=== PATIENT | male | born 1950 | race Caucasian/White ===

== ENCOUNTER 2024-05-27 18:05 | Inpatient (IN) | payer MEDICARE, OTHER ==
[~2024-05-27] VITALS: Ht 185.4 cm; Wt 83.2 kg
[~2024-05-27 18:05] MED LIST: CIME-52 PO; DOCU-94 PO; PAXIL PO
[2024-05-27 18:32] VITALS: PULSE 81; RESP 18; O2SAT 95
--- NOTE | 2024-05-27 18:55 | ED.PDOC ---
Musculoskeletal HPI Comments 74-year-old male who came to ER due to foot pain. Patient resides at the assisted care facility, he has history of 1. Osteomyelitis of both feet, status post surgery, 2. Urinary tract infection with Proteus, 3. Diabetes mellitus, 4. Dementia, 5. Multiple sclerosis, 6. Chronic kidney disease stage 3. He was noted by caregivers that his left foot is swollen and erythematous. Noted mild fever. States patient's feet was normal a week ago. Chief Complaint: Extremity Swelling Time Seen by MD: 18:55 Primary Care Provider: ANA MARIA Fisher Notes: Track Inspecting Supervisor Notes Allergies: Coded Allergies: Penicillin G (Verified Allergy, Unknown, 09/01/15) Home Meds Reported Medications Docusate Sodium (Colace) 100 Mg Cap, PO TID 12/20/12 Cimetidine (Cimetidine) 400 Mg Tab, PO DAILY 12/20/12 [Paxil] No Conflict Check, 40 MG PO DAILY 12/20/12 Information Source: Relative Mode of Arrival: EMS Location: Left Extremity Location: Foot Timing: Days Prehospital treatment: None Severity: Moderate Able to Move Extremity: Yes Bear Weight: Limited Pain: Moderate Hand Dominance: Right Mechanism: Spontaneous Circumstances: Spontaneous Onset of Symptoms: Spontaneous Symptoms: Swelling Associated signs and symptoms: Foot pain (left) Past Medical History PAST MEDICAL HISTORY: Dementia, DM, UTI'S Past Medical History (Other): Osteomyelitis bilateral feet, multiple sclerosis Surgical History: Denies all surgeries Family History Family History: Reviewed,noncontributory to illness Social History Smoker: Non-Smoker Alcohol: Denies ETOH Use Drugs: Denies Drug Use Lives In: Assisted Care Unable to Obtain due to: Dementia Physical Exam General Appearance: No Apparent Distress, Normal HEENT: Normal ENT Inspection, Pharynx Normal, TMs Normal Neck: Full Range of Motion, Non-Tender, Normal, Normal Inspection Respiratory: Chest Non-Tender, Lungs Clear, No Accessory Muscle Use, No Respiratory Distress, Normal Breath Sounds Cardiovascular: No Edema, No JVD, No Murmur, No Gallop, Normal Peripheral Pulses, Regular Rate/Rhythm Breast Exam: Deferred Gastrointestinal: No Organomegaly, Non Tender, No Pulsatile Mass, Normal Bowel Sounds, Soft Genitalia: Deferred Pelvic: Deferred Rectal: Deferred Extremities: No calf tenderness, Normal capillary refill, Normal range of motion, Non-tender, No pedal edema, Swelling (Erythema left foot) Musculoskeletal : Apperance: Normal Neurologic: Alert, care transition mgr II-XII nml as Tested, No Motor Deficits, Normal Affect, Normal Mood, No Sensory Deficits Cerebellar Function: Normal Reflexes: Normal Skin: Dry, Normal Color, Warm Lymphatic: No Adenopathy Was a procedure done? Was a procedure done?: No Differential Diagnosis EXT Differential Diagnosis: Cellulitis, CHF, Deep Vein Thrombosis, Septic, Other (Osteomyelitis) Other Differential Diagnosis Diabetic foot X-Ray, Labs, Meds, VS Vital Signs Date Time Temp Pulse Resp B/P (MAP) Pulse Ox O2 Delivery O2 Flow Rate FiO2 05/27/24 19:30 82 18 93 Room Air* 0 21 05/27/24 18:32 81 18 95 Room Air* 0 21 05/27/24 18:31 98.1 85 18 145/75 (98) 95 98.1 05/27/24 18:08 99.0 84 14 148/79 (102) 98 Lab Test 05/27/24 19:09 05/27/24 19:04 Range/Units Lactic Acid Level 1.9 0.4-2.0 mmol/L White Blood Count 7.7 4.4-10.8 10^3/uL Red Blood Count 4.61 4.5-5.90 10^6/uL Hemoglobin 13.9 13.5-17.5 g/dL Hematocrit 41.5 41.0-53.0 % Mean Corpuscular Volume 90.1 80.0-100.0 fL Mean Corpuscular Hemoglobin 30.1 28.0-32.0 pg Mean Corpuscular Hemoglobin Concent 33.4 32.0-36.0 g/dL Red Cell Distribution Width 14.9 H 11.8-14.3 % Platelet Count 228 140-450 10^3/uL Mean Platelet Volume 7.8 6.9-10.8 fL Neutrophils (%) (Auto) 66.5 37.0-80.0 % Lymphocytes (%) (Auto) 18.9 10.0-50.0 % Monocytes (%) (Auto) 8.1 0.0-12.0 % Eosinophils (%) (Auto) 5.8 0.0-7.0 % Basophils (%) (Auto) 0.7 0.0-2.0 % Neutrophils # (Auto) 5.1 1.6-8.6 10 ^3/uL Lymphocytes # (Auto) 1.5 0.4-5.4 10 ^3/uL Monocytes # (Auto) 0.6 0-1.3 10 ^3/uL Eosinophils # (Auto) 0.4 0-0.8 10 ^3/uL Basophils # (Auto) 0.1 0-0.2 10 ^3/uL Nucleated Red Blood Cells 0.0 % Sodium Level 139 136-145 mmol/L Potassium Level 3.9 3.5-5.1 mmol/L Chloride Level 109 H 98-107 mmol/L Carbon Dioxide Level 28 20-31 mmol/L Anion Gap 2 L 5-15 Blood Urea Nitrogen 18 9-23 mg/dL Creatinine 1.36 H 0.700-1.30 mg/dL Glomerular Filtration Rate Calc 55 >90 mL/min BUN/Creatinine Ratio 13.2 10.0-20.0 Serum Glucose 104 74-106 mg/dL Calcium Level 9.4 8.7-10.4 mg/dL Current Medications Medications (Trade) Dose Ordered Sig/Sheng Route Start Time Stop Time Status Last Admin Vancomycin HCl 200 ml @ 200 mls/hr ONCE ONCE IV 05/27/24 19:00 05/27/24 19:59 DC 05/27/24 18:56 TECHNIQUE: XY L FOOT 3 VIEW XRAY FINDINGS/IMPRESSION: There is no evidence of acute fracture or dislocation. Amputation of the 1st digit with residual proximal metatarsal. The visualized joint space is well maintained. The alignment is anatomical. There is no radiopaque foreign body. Time of 1ST Reevaluation: 18:51 Reevaluation 1ST: Unchanged Patient Education/Counseling: Diagnosis, Treatment Family Education/Counseling: Diagnosis, Treatment Departure 1 Departure Time of Disposition: 20:11 (Patient with cellulitis of his foot. Patient's CBC and BMP are benign. X-rays benign. We will cover patient with IV antibiotics and admit for further workup) Impression: Primary Impression: Cellulitis of foot Disposition: ADMITTED INPATIENT Admit to: Med Surg Condition: Serious Critical Care Note Critical Care Time?: No Stability Stability form required: No Heart Score Heart Score: Heart Score Response (Comments) Value History N/A 0 EKG N/A 0 Age N/A 0 Risk Factors N/A 0 Troponin N/A 0 Total 0 I personally scribed for ROBE RAMOS MD ([facility]) on 05/27/24 at 18:55. Electronically submitted by Sean Marroquin ([facility]). I personally scribed for ROBE RAMOS MD ([facility]) on 05/27/24 at 20:06. [facility] by [facility] ([facility] ROBE RAMOS MD May 27, 2024 18:55
[2024-05-27] MEDS: VANCOMYCIN 1GM/200ML PREMIX 200 ML IV ONE (18:56)
[2024-05-27 19:24] LABS: Basophils # (auto) 0.1 10 ^3/uL (0-0.2); Basophils % (auto) 0.7 % (0.0-2.0); Eosinophils # (auto) 0.4 10 ^3/uL (0-0.8); Eosinophils % (auto) 5.8 % (0.0-7.0); Hematocrit 41.5 % (41.0-53.0); Hemoglobin 13.9 g/dL (13.5-17.5); Lymphocytes # (auto) 1.5 10 ^3/uL (0.4-5.4); Lymphocytes % (auto) 18.9 % (10.0-50.0); Mean Corpuscular Hemoglobin 30.1 pg (28.0-32.0); Mean Corpuscular Hgb Conc. 33.4 g/dL (32.0-36.0); Mean Corpuscular Volume 90.1 fL (80.0-100.0); Monocytes # (auto) 0.6 10 ^3/uL (0-1.3); Monocytes % (auto) 8.1 % (0.0-12.0); Neutrophils # (auto) 5.1 10 ^3/uL (1.6-8.6); Neutrophils % (auto) 66.5 % (37.0-80.0); Platelet Count (auto) 228 10^3/uL (140-450); Red Blood Cells 4.61 10^6/uL (4.5-5.90); Red Cell Distribution Width 14.9 % (11.8-14.3); White Blood Cell 7.7 10^3/uL (4.4-10.8)
[2024-05-27 19:30] VITALS: PULSE 82; RESP 18; O2SAT 93
--- NOTE | 2024-05-27 19:31 | DVH ---
CLINICAL INDICATION: left foot pain and redness TECHNIQUE: XY L FOOT 3 VIEW XRAY Comparison: None FINDINGS/IMPRESSION: There is no evidence of acute fracture or dislocation. Amputation of the 1st digit with residual prox imal metatarsal. The visualized joint space is well maintained. The alignment is anatomical. There is no radiopaque foreign body.
[2024-05-27 19:41] LABS: Chloride 109 mmol/L (98-107); Potassium 3.9 mmol/L (3.5-5.1); Sodium 139 mmol/L (136-145)
[2024-05-27 19:42] LABS: Anion Gap 2 (5-15); Carbon Dioxide 28 mmol/L (20-31)
[2024-05-27 19:43] LABS: Calcium 9.4 mg/dL (8.7-10.4)
[2024-05-27 19:48] LABS: BUN/Creatinine Ratio 13.2 (10.0-20.0); Blood Urea Nitrogen 18 mg/dL (9-23); Glucose 104 mg/dL (74-106)
[2024-05-27] MEDS ORDERED: HYDROcodone-ACET 5/325MG TAB PO PRN (22:15)
[2024-05-27] MEDS ORDERED: VANCOMYCIN PER PHARMACY 0 MG IV SCH (22:15)
[2024-05-27] MEDS ORDERED: ONDANSETRON HCL 4 MG/2 ML VIAL IV PRN (22:15)
[2024-05-27] MEDS ORDERED: ACETAMINOPHEN 325 MG TAB PO PRN (22:15)
[2024-05-27] MEDS ORDERED: MORPHINE SULFATE INJ 2 MG/ml SYRG IV PRN (22:30)
[2024-05-27] MEDS ORDERED: NITROGLYCERIN 0.4 MG SL TAB SL PRN (22:30)
--- NOTE | 2024-05-27 22:45 | DVHHP2 ---
History of Present Illness Reason for Visit: Cellulitis of foot History of Present Illness The patient is a 74-year-old male with multiple past medical history including DM, UTIs, and dementia who presented to [facility] ED for evaluation of foot pain. Patient is currently residing at assisted care facility, noted by caregiver his left foot is swollen and erythematous, mild fever, painful to touch, getting worse that prompted this visit. Patient was seen and evaluated in the ED, laboratory data shows WBC 7.7, platelets 228, sodium 139, potassium 3.9, BUN 18, creatinine 1.36, GFR 55, glucose 104, blood pressure 145/75, heart rate 82, temperature 98.1 F, O2 saturation 95% room air. Foot CT showed no evidence of acute fracture or dislocation, amputation of the 1st digit with residual proximal metatarsal, no radiopaque foreign body. Patient was started on IV antibiotic regimen vancomycin, please see medication orders section in the co mputer. On my assessment, patient remains altered, no diaphoresis, no shortness of breath, no nausea, no vomiting, no fever, no chills. Patient was admitted for further evaluation and medical management. Past Medical History CKD, Dementia, DM, UTI'S, Osteomyelitis bilateral feet, multiple sclerosis Past Surgical History Left great toe amputation Family History Reviewed, noncontributory to the management of this case. Past Social History Patient lives at assisted care living, denies smoking, no alcohol or illicit drug use on file Review of Systems Constitutional: Yes: Weakness; No: Fever, Chills, Sweats, Malaise, Other Eyes: No: Pain, Vision change, Conjunctivae inflammation, Eyelid inflammation, Other, Redness ENT: No: Ear pain, Ear discharge, Nose pain, Nose discharge, Nose congestion, Mouth pain, Mouth swelling, Throat pain, Throat swelling, Other Respiratory: No: Cough, Dry, Shortness of breath, SOB with excertion, Wheezing, Hemoptysis, Pleuritic Pain, Sputum, Wheezing, Other Cardiovascular: No: Chest Pain, Palpitations, Orthopnea, Paroxysmal Noc. Dyspnea, Edema, Lt Headedness, Other Gastrointestinal: No: Nausea, Vomiting, Abdominal Pain, Diarrhea, Constipation, Melena, Hematochezia, Other Genitourinary: No Dysuria, No Frequency, No Incontinence, No Hematuria, No Retention, No Other Musculoskeletal: foot pain (Bilateral); No: other, neck pain, shoulder pain, arm pain, back pain, hand pain, leg pain Skin: Other (Bilateral foot redness, skin keloid in the neck.); No: Rash, Lesions, Jaundice, Bruising Neurological: No: Weakness, Numbness, Incoordination, Change in speech, Confusion, Seizures, Other Allergies: Coded Allergies: Penicillin G (Verified Allergy, Unknown, 09/01/15) Medications Current Medications Medications Dose Ordered Sig/Sheng Route Start Time Stop Time Status Last Admin Dose Admin Vancomycin HCl 0 ml @ 0 mls/hr UD IV 05/27/24 22:15 UNV Sodium Chloride 10 ml Q8HR IV 05/28/24 06:00 UNV Acetaminophen/ Hydrocodone Bitart 1 tab Q4HP PRN PO 05/27/24 22:15 UNV Ondansetron HCl 4 mg Q4HP PRN IV 05/27/24 22:15 UNV Docusate Sodium 100 mg BIDPRN PRN PO 05/27/24 22:15 UNV Acetaminophen 650 mg Q6HP PRN PO 05/27/24 22:15 UNV Exam Vital Signs Vital Signs Date Time Temp Pulse Resp B/P (MAP) Pulse Ox O2 Delivery O2 Flow Rate FiO2 05/27/24 20:00 74 05/27/24 19:30 18 93 Room Air* 0 21 05/27/24 18:31 98.1 145/75 (98) 98.1 General Appearance: Alert, Cooperative, No acute distress, Other (Oriented x2) HEENT: Atraumatic, PERRLA, EOMI, Mucous membr. moist/pink Respiratory: Clear to auscultation, Normal air movement Cardiovascular: Regular rate, Normal S1, Normal S2, No murmurs Abdominal: Normal bowel sounds, Soft, No tenderness, No hepatospenomegaly, No masses Extremities: No clubbing, No cyanosis, No edema, Normal pulses, Other (Bilateral foot tenderness/swelling) Skin: No rashes, No breakdown, No significant lesion Neuro: Normal speech, Normal tone, Sensation intact, Cranial nerves 3-12 NL, Reflexes 2+, Other (Generalized weakness) Psych/Mental Status: Mood NL, Other (Altered mental status) Labs/Xrays Labs Test 05/27/24 19:09 05/27/24 19:04 Range/Units Lactic Acid Level 1.9 0.4-2.0 mmol/L White Blood Count 7.7 4.4-10.8 10^3/uL Red Blood Count 4.61 4.5-5.90 10^6/uL Hemoglobin 13.9 13.5-17.5 g/dL Hematocrit 41.5 41.0-53.0 % Mean Corpuscular Volume 90.1 80.0-100.0 fL Mean Corpuscular Hemoglobin 30.1 28.0-32.0 pg Mean Corpuscular Hemoglobin Concent 33.4 32.0-36.0 g/dL Red Cell Distribution Width 14.9 H 11.8-14.3 % Platelet Count 228 140-450 10^3/uL Mean Platelet Volume 7.8 6.9-10.8 fL Neutrophils (%) (Auto) 66.5 37.0-80.0 % Lymphocytes (%) (Auto) 18.9 10.0-50.0 % Monocytes (%) (Auto) 8.1 0.0-12.0 % Eosinophils (%) (Auto) 5.8 0.0-7.0 % Basophils (%) (Auto) 0.7 0.0-2.0 % Neutrophils # (Auto) 5.1 1.6-8.6 10 ^3/uL Lymphocytes # (Auto) 1.5 0.4-5.4 10 ^3/uL Monocytes # (Auto) 0.6 0-1.3 10 ^3/uL Eosinophils # (Auto) 0.4 0-0.8 10 ^3/uL Basophils # (Auto) 0.1 0-0.2 10 ^3/uL Nucleated Red Blood Cells 0.0 % Sodium Level 139 136-145 mmol/L Potassium Level 3.9 3.5-5.1 mmol/L Chloride Level 109 H 98-107 mmol/L Carbon Dioxide Level 28 20-31 mmol/L Anion Gap 2 L 5-15 Blood Urea Nitrogen 18 9-23 mg/dL Creatinine 1.36 H 0.700-1.30 mg/dL Glomerular Filtration Rate Calc 55 >90 mL/min BUN/Creatinine Ratio 13.2 10.0-20.0 Serum Glucose 104 74-106 mg/dL Calcium Level 9.4 8.7-10.4 mg/dL PATIENT: ANANDAKASSY ACCT: [id number] UNIT: [id number] : 1950 LOC: ER ROOM / BED: / AGE / SEX: 74 / M ADM STATUS: REG ER SERVICE 48 ORDERING PHYSICIAN: ROBE RAMOS MD PROCEDURE(s): LFOOT - L FOOT 3 VIEW XRAY REASON: left foot pain and redness ORDER NUMBER(s): [id number], ACCESSION NUMBER(s): [id number] CLINICAL INDICATION: left foot pain and redness TECHNIQUE: XY L FOOT 3 VIEW XRAY Comparison: None FINDINGS/IMPRESSION: There is no evidence of acute fracture or dislocation. Amputation of the 1st digit with residual proximal metatarsal. The visualized joint space is well maintained. The alignment is anatomical. There is no radiopaque foreign body. Assessment/Plan Assessment/Plan Cellulitis of both feet Chronic kidney disease Generalized weakness Altered mental status Plan 1. Admit to med surge unit 2. Breathing treatment 3. Pain control management 4. IV antibiotic management 5. Management of fluids and electrolytes 6. Consultation for hospitalist 7. Diagnostic test foot CT 8. DVT prophylaxis on SCDs 9. Repeat labs CBC, CMP in a.m. 10. Home medication reviewed and reconciled 11. Continue with current medical management 12. Treatment plan discussed with patient and RN. Patient will need re inforcement information given mental status. Plan discussed with: Patient, Other (RN) My Orders Orders - TIANA ALEXANDER DNP Procedure Category Date Status Time Consistent DIET 05/28/24 Transmitted Carb(Ccho)Diabetes Breakfast Vancomycin Per PHA 05/27/24 Logged Pharmacy 22:15 Allergies MARE 05/27/24 In Process 22:07 Code Status CODE 05/27/24 Transmitted 22:07 Sodium Chloride Lock PHA 05/28/24 Logged (Saline Lock Ns) 06:00 Oxygen Per Hour RT 05/27/24 Transmitted 22:07 Hydrocodone-Acet PHA 05/27/24 Logged 5/325mg Tab ([place] 22:15 Ondansetron Hcl PHA 05/27/24 Logged (Zofran) 22:15 Docusate Sodium PHA 05/27/24 Logged Capsule (Colace 22:15 Fall Risk Precautions MARE 05/27/[address] 22:07 Complete Blood Count LAB 05/28/24 Verified 04:00 Comprehensive LAB 05/28/24 Verified Metabolic Panel 04:00 Cardiac DIET 05/28/24 Transmitted Diet-2gna,Lofat,Lochol Breakfast Condition: Serious MARE 05/27/24 In Process 22:07 Acetaminophen Tablet PHA 05/27/24 Logged (Tylenol Tablet) 22:15 Sequential MARE 05/27/24 In Process Compression Device Problem List: (1) Cellulitis of both feet (2) Generalized weakness (3) Altered mental status (4) Chronic kidney disease Date of Service: May 27, 2024 Billing Provider: TIANA ALEXANDER DNP Common Visit Codes: [id number] INP/OBS CARE (HIGH) TIANA ALEXANDER DNP May 27, 2024 22:45
[2024-05-28 06:03] LABS: Basophils # (auto) 0 10 ^3/uL (0-0.2); Basophils % (auto) 0.7 % (0.0-2.0); Eosinophils # (auto) 0.4 10 ^3/uL (0-0.8); Eosinophils % (auto) 5.8 % (0.0-7.0); Hemoglobin 14.3 g/dL (13.5-17.5); Lymphocytes # (auto) 1.6 10 ^3/uL (0.4-5.4); Lymphocytes % (auto) 20.8 % (10.0-50.0); Mean Corpuscular Hemoglobin 30.4 pg (28.0-32.0); Mean Corpuscular Hgb Conc. 33.9 g/dL (32.0-36.0); Mean Corpuscular Volume 89.6 fL (80.0-100.0); Monocytes # (auto) 0.5 10 ^3/uL (0-1.3); Monocytes % (auto) 6.9 % (0.0-12.0); Neutrophils % (auto) 65.8 % (37.0-80.0); Nucleated Red Blood Cells % 0.1 %; Platelet Count (auto) 222 10^3/uL (140-450); Red Blood Cells 4.69 10^6/uL (4.5-5.90); Red Cell Distribution Width 14.9 % (11.8-14.3); White Blood Cell 7.5 10^3/uL (4.4-10.8)
[2024-05-28] MEDS: SODIUM CHLOR 0.9% PF (SALINE LOCK) 10ML VIAL/SYR IV SCH (06:03)
[2024-05-28 06:27] LABS: Alanine Aminotransferase 14 U/L (7-40); Albumin 3.9 g/dL (3.2-4.8); Alkaline Phosphatase 108 U/L (46-116); Anion Gap 7 (5-15); Aspartate Aminotransferase 12 U/L (13-40); BUN/Creatinine Ratio 14.8 (10.0-20.0); Blood Urea Nitrogen 19 mg/dL (9-23); Calcium 9.5 mg/dL (8.7-10.4); Carbon Dioxide 27 mmol/L (20-31); Chloride 107 mmol/L (98-107); Glucose 89 mg/dL (74-106); Potassium 3.8 mmol/L (3.5-5.1); Sodium 141 mmol/L (136-145)
[2024-05-28 06:28] LABS: Bilirubin, Total 0.4 mg/dL (0.2-1.0); Total Protein 7.1 g/dL (5.7-8.2)
[2024-05-28 08:00] VITALS: PULSE 65; RESP 17; O2SAT 95
--- NOTE | 2024-05-28 12:41 | DVHPN2 ---
Reviewed: Care Plan, H&P, Labs, Medications, Previous Orders, Radiology Changes from previous H/P or p: No Changes Eyes: No Pain, No Vision change, No Conjunctivae inflammation, No Eyelid inflammation, No Other, No Redness ENT: No Ear pain, No Ear discharge, No Nose pain, No Nose discharge, No Nose congestion, No Mouth pain, No Mouth swelling, No Throat pain, No Throat swelling, No Other Cardiovascular: No Chest Pain, No Palpitations, No Orthopnea, No Paroxysmal Noc. Dyspnea, No Edema, No Lt Headedness, No Other Respiratory: No Cough, No Dry, No Shortness of breath, No SOB with excertion, No Wheezing, No Hemoptysis, No Pleuritic Pain, No Sputum, No Other Gastrointestinal: No Nausea, No Vomiting, No Abdominal Pain, No Diarrhea, No Constipation, No Melena, No Hematochezia, No Other Genitourinary: No Dysuria, No Frequency, No Incontinence, No Hematuria, No Retention, No Other Musculoskeletal: No other, No neck pain, No shoulder pain, No arm pain, No back pain, No hand pain, No leg pain; foot pain (Bilateral) Skin: No Rash, No Lesions, No Jaundice, No Bruising; Other (Bilateral foot redness, skin keloid in the neck.) Objective Vitals Vital Signs Date Time Temp Pulse Resp B/P (MAP) Pulse Ox O2 Delivery O2 Flow Rate FiO2 05/28/24 12:00 65 11 168/74 (105) 94 05/28/24 08:00 97.6 97.6 05/28/24 08:00 Room Air* 0 21 Intake/Output Intake and Output 05/28/24 07:00 Intake Total 200 ml Balance 200 ml Intake IV Total 200 ml Medications Current Medications Medications Dose Ordered Sig/Sheng Route Start Time Stop Time Status Last Admin Dose Admin Vancomycin HCl 0 ml @ 0 mls/hr UD IV 05/27/24 22:15 Sodium Chloride 10 ml Q8HR IV 05/28/24 06:00 05/28/24 06:03 10 ML Acetaminophen/ Hydrocodone Bitart 1 tab Q4HP PRN PO 05/27/24 22:15 Ondansetron HCl 4 mg Q4HP PRN IV 05/27/24 22:15 Docusate Sodium 100 mg BIDPRN PRN PO 05/27/24 22:15 Acetaminophen 650 mg Q6HP PRN PO 05/27/24 22:15 Nitroglycerin 0.4 mg Q5MINP PRN SL 05/27/24 22:30 Morphine Sulfate 2 mg Q30M PRN IV 05/27/24 22:30 Laboratory Results Laboratory Tests 05/28/24 05:23 Chemistry Test 05/27/24 19:04 05/28/24 05:23 Calcium Level 9.4 mg/dL (8.7-10.4) 9.5 mg/dL (8.7-10.4) Albumin 3.9 g/dL (3.2-4.8) Total Protein 7.1 g/dL (5.7-8.2) LFT Test 05/28/24 05:23 Alanine Aminotransferase (ALT) 14 U/L (7-40) Alkaline Phosphatase 108 U/L (46-116) Aspartate Amino Transferase (AST) 12 U/L (13-40) L Total Bilirubin 0.4 mg/dL (0.2-1.0) Labs and/or images reviewed: Labs reviewed by me, Image(s) reviewed by me Assessment/Plan Assessment/Plan Acute cellulitis left foot: Vancomycin: Blood cultures, consult for salvager Dr. Guerrero History of left great toe amputation Dementia Uncontrolled diabetes: Insulin sliding scale Chronic kidney disease Acute urinary tract infection: Urine cultures Rocephin History of Osteomyelitis bilateral feet Multiple sclerosis Patient came from [facility] Severe malnutrition Time spent 45 minutes Patient is full code Advanced care planning time 20 minutes Plan discussed with: Patient My Orders Orders - JASON KHAN MD Procedure Category Date Status Time Mri L Foot Wo Contrast MRI 05/28/24 Logged 12:33 Date of Service: May 28, 2024 Billing Provider: JASON KHAN MD Common Visit Codes: [id number] INP/OBS CARE(HIGH) Secondary Visit Codes: [id number] CARE PLAN 30 MINUTES JASON KHAN MD May 28, 2024 12:41
[2024-05-28 13:40] VITALS: PULSE 66; RESP 96; O2SAT 96
[2024-05-28 14:07] VITALS: BP 158/77; PULSE 64; RESP 18; TEMP 97.2; O2SAT 96
[2024-05-28 16:34] VITALS: BP 127/74; PULSE 67; RESP 16; TEMP 98.1; O2SAT 97
[2024-05-28] MEDS ORDERED: DOX2T PO (18:46)
[2024-05-28] MEDS ORDERED: ATOR20TA50 PO (18:46)
[2024-05-28] MEDS ORDERED: PANT40T PO (18:46)
[2024-05-28] MEDS ORDERED: DOXA4TAB83 PO (18:46)
[2024-05-28] MEDS ORDERED: CLOP75TA70 PO (18:46)
[2024-05-28] MEDS ORDERED: DOCU-265 PO (18:46)
[2024-05-28] MEDS ORDERED: PARO-135 (18:47)
[2024-05-28 20:00] VITALS: PULSE 87; RESP 18; O2SAT 97
[2024-05-28 21:00] VITALS: BP 152/98; PULSE 72; RESP 17; TEMP 97.8; O2SAT 95
[2024-05-29] VITALS (7 sets, daily range): BP systolic 113–155; BP diastolic 62–72; PULSE 69–100; RESP 17–18; TEMP 97.6–98.7; O2SAT 90–97
--- NOTE | 2024-05-29 10:02 | DVHPN2 ---
Reviewed: Care Plan, H&P, Labs, Medications, Previous Orders, Radiology Changes from previous H/P or p: No Changes Eyes: No Pain, No Vision change, No Conjunctivae inflammation, No Eyelid inflammation, No Other, No Redness ENT: No Ear pain, No Ear discharge, No Nose pain, No Nose discharge, No Nose congestion, No Mouth pain, No Mouth swelling, No Throat pain, No Throat swelling, No Other Cardiovascular: No Chest Pain, No Palpitations, No Orthopnea, No Paroxysmal Noc. Dyspnea, No Edema, No Lt Headedness, No Other Respiratory: No Cough, No Dry, No Shortness of breath, No SOB with excertion, No Wheezing, No Hemoptysis, No Pleuritic Pain, No Sputum, No Other Gastrointestinal: No Nausea, No Vomiting, No Abdominal Pain, No Diarrhea, No Constipation, No Melena, No Hematochezia, No Other Genitourinary: No Dysuria, No Frequency, No Incontinence, No Hematuria, No Retention, No Other Musculoskeletal: No other, No neck pain, No shoulder pain, No arm pain, No back pain, No hand pain, No leg pain; foot pain (Bilateral) Skin: No Rash, No Lesions, No Jaundice, No Bruising; Other (Bilateral foot redness, skin keloid in the neck.) Objective Vitals Vital Signs Date Time Temp Pulse Resp B/P (MAP) Pulse Ox O2 Delivery O2 Flow Rate FiO2 05/29/24 08:00 18 97 Room Air* 0 N/A Nasal Cannula* 05/29/24 05:00 98.0 69 153/72 (99) 98.0 Intake/Output Intake and Output 05/29/24 07:00 Intake Total 0 ml Balance 0 ml Intake Oral 0 ml # Voids 6 Medications Current Medications Medications Dose Ordered Sig/Sheng Route Start Time Stop Time Status Last Admin Dose Admin Vancomycin HCl 0 ml @ 0 mls/hr UD IV 05/27/24 22:15 Sodium Chloride 10 ml Q8HR IV 05/28/24 06:00 05/29/24 05:23 10 ML Acetaminophen/ Hydrocodone Bitart 1 tab Q4HP PRN PO 05/27/24 22:15 Ondansetron HCl 4 mg Q4HP PRN IV 05/27/24 22:15 Docusate Sodium 100 mg BIDPRN PRN PO 05/27/24 22:15 Acetaminophen 650 mg Q6HP PRN PO 05/27/24 22:15 Nitroglycerin 0.4 mg Q5MINP PRN SL 05/27/24 22:30 Morphine Sulfate 2 mg Q30M PRN IV 05/27/24 22:30 Laboratory Results Laboratory Tests 05/28/24 05:23 Labs and/or images reviewed: Labs reviewed by me, Image(s) reviewed by me Assessment/Plan Assessment/Plan Acute cellulitis left foot: Vancomycin: Blood cultures, consult for solar designer/installer Dr. Guerrero History of left great toe amputation Dementia Uncontrolled diabetes: Insulin sliding scale Chronic kidney disease Acute urinary tract infection: Urine cultures Rocephin History of Osteomyelitis bilateral feet Multiple sclerosis Patient came from [facility] and care Severe malnutrition Time spent 45 minutes Patient is full code Advanced care planning time 20 minutes Plan discussed with: Patient My Orders Orders - JASON KHAN MD Procedure Category Date Status Time *Podiatry Consult CONS 05/28/24 Transmitted Cesar(Dvmg) 12:35 Blood Culture ANGELA 05/28/24 In Process 16:47 * Field Checker CONS 05/28/24 Transmitted Consult * Field Checker CONS 05/28/24 Transmitted Consult Date of Service: May 29, 2024 Billing Provider: JASON KHAN MD Common Visit Codes: [id number] INP/OBS CARE(HIGH) JASON KHAN MD May 29, 2024 10:02
[2024-05-30 05:00] VITALS: BP 130/73; PULSE 77; RESP 17; TEMP 98.2; O2SAT 93
[2024-05-30 08:00] VITALS: RESP 18; O2SAT 97
[2024-05-30 08:35] VITALS: BP 144/61; PULSE 68; RESP 18; TEMP 97.8; O2SAT 92
[2024-05-30] MEDS: DOCUSATE SOD 100 MG CAP PO PRN (08:42)
--- NOTE | 2024-05-30 12:11 | DVHPN2 ---
Reviewed: Care Plan, H&P, Labs, Medications, Previous Orders, Radiology Changes from previous H/P or p: No Changes Eyes: No Pain, No Vision change, No Conjunctivae inflammation, No Eyelid inflammation, No Other, No Redness ENT: No Ear pain, No Ear discharge, No Nose pain, No Nose discharge, No Nose congestion, No Mouth pain, No Mouth swelling, No Throat pain, No Throat swelling, No Other Cardiovascular: No Chest Pain, No Palpitations, No Orthopnea, No Paroxysmal Noc. Dyspnea, No Edema, No Lt Headedness, No Other Respiratory: No Cough, No Dry, No Shortness of breath, No SOB with excertion, No Wheezing, No Hemoptysis, No Pleuritic Pain, No Sputum, No Other Gastrointestinal: No Nausea, No Vomiting, No Abdominal Pain, No Diarrhea, No Constipation, No Melena, No Hematochezia, No Other Genitourinary: No Dysuria, No Frequency, No Incontinence, No Hematuria, No Retention, No Other Musculoskeletal: No other, No neck pain, No shoulder pain, No arm pain, No back pain, No hand pain, No leg pain; foot pain (Bilateral) Skin: No Rash, No Lesions, No Jaundice, No Bruising; Other (Bilateral foot redness, skin keloid in the neck.) Objective Vitals Vital Signs Date Time Temp Pulse Resp B/P (MAP) Pulse Ox O2 Delivery O2 Flow Rate FiO2 05/30/24 08:35 97.8 68 18 144/61 (88) 92 97.8 05/30/24 08:00 Room Air* 0 N/A Nasal Cannula* Intake/Output Intake and Output 05/30/24 07:00 Intake Total 1040 ml Balance 1040 ml Intake Oral 1040 ml # Voids 7 Medications Current Medications Medications Dose Ordered Sig/Sheng Route Start Time Stop Time Status Last Admin Dose Admin Vancomycin HCl 0 ml @ 0 mls/hr UD IV 05/27/24 22:15 Sodium Chloride 10 ml Q8HR IV 05/28/24 06:00 05/30/24 05:58 10 ML Acetaminophen/ Hydrocodone Bitart 1 tab Q4HP PRN PO 05/27/24 22:15 Ondansetron HCl 4 mg Q4HP PRN IV 05/27/24 22:15 Docusate Sodium 100 mg BIDPRN PRN PO 05/27/24 22:15 05/30/24 08:42 100 MG Acetaminophen 650 mg Q6HP PRN PO 05/27/24 22:15 Nitroglycerin 0.4 mg Q5MINP PRN SL 05/27/24 22:30 Morphine Sulfate 2 mg Q30M PRN IV 05/27/24 22:30 Laboratory Results Laboratory Tests 05/28/24 05:23 Microbiology Microbiology Date/Time Source Procedure Growth Status 05/28/24 17:17 Blood Blood Culture - Preliminary NO GROWTH AFTER 24 HOURS OF INCUBATION. Resulted 05/28/24 05:50 Nose MRSA Screen - Final Complete Labs and/or images reviewed: Labs reviewed by me, Image(s) reviewed by me Assessment/Plan Assessment/Plan Acute cellulitis left foot: Continue Vancomycin: Blood cultures negative, consult for relay telegrapher Dr. Guerrero pending History of left great toe amputation Dementia Uncontrolled diabetes: Insulin sliding scale Chronic kidney disease Acute urinary tract infection: Urine cultures Rocephin History of Osteomyelitis bilateral feet Multiple sclerosis Patient came from [facility] Severe malnutrition Time spent 45 minutes Patient is full code PICC line for IV vancomycin Possible fpc facility placement. Plan discussed with: Patient My Orders Orders - JASON KHAN MD Procedure Category Date Status Time Code Status CODE 05/29/24 Transmitted 14:22 Mechanical Soft Diet DIET 05/29/24 Transmitted Dinner Date of Service: May 30, 2024 Billing Provider: JASON KHAN MD Common Visit Codes: [id number] INP/OBS CARE(HIGH) JASON KHAN MD May 30, 2024 12:11
[2024-05-30] MEDS ORDERED: VANCOMYCIN PER PHARMACY 0 MG IV SCH (12:45)
[2024-05-30 13:00] VITALS: BP 158/67; PULSE 68; RESP 18; TEMP 98; O2SAT 92
[2024-05-30 15:25] LABS: INR 1.06 (0.9-1.15); Partial Thromboplastin Time 28.8 SEC (24.5-34.5); Prothrombin Time 11.2 sec (9.3-11.8)
[2024-05-30] MEDS: VANCOMYCIN 1GM/200ML PREMIX 200 ML IV ONE (16:02)
[2024-05-30] MEDS: DOXAZOSIN MESYL 2 MG TAB PO ONE (16:13)
[2024-05-30 17:01] VITALS: BP 147/67; PULSE 69; RESP 20; TEMP 98.7; O2SAT 92
[2024-05-30] MEDS: LIDOCAINE 1% (LOCAL ANESTH.) PF 5ml SDV ID ONE (19:15)
[2024-05-30 21:26] VITALS: BP 154/72; PULSE 78; RESP 20; TEMP 98.1; O2SAT 99
[2024-05-30] MEDS: SODIUM CHLOR 0.9% PF (SALINE LOCK) 10ML VIAL/SYR IV SCH (22:20)
[2024-05-31 01:00] VITALS: BP 154/70; PULSE 75; RESP 20; TEMP 98.1; O2SAT 95
[2024-05-31 04:51] LABS: Basophils # (auto) 0.1 10 ^3/uL (0-0.2); Basophils % (auto) 0.7 % (0.0-2.0); Eosinophils # (auto) 0.6 10 ^3/uL (0-0.8); Hematocrit 38.6 % (41.0-53.0); Hemoglobin 12.7 g/dL (13.5-17.5); Lymphocytes # (auto) 2.1 10 ^3/uL (0.4-5.4); Lymphocytes % (auto) 22.2 % (10.0-50.0); Mean Corpuscular Hemoglobin 29.9 pg (28.0-32.0); Mean Corpuscular Volume 90.5 fL (80.0-100.0); Monocytes # (auto) 0.8 10 ^3/uL (0-1.3); Monocytes % (auto) 8.7 % (0.0-12.0); Neutrophils % (auto) 62.4 % (37.0-80.0); Nucleated Red Blood Cells % 0.1 %; Platelet Count (auto) 217 10^3/uL (140-450); Red Blood Cells 4.26 10^6/uL (4.5-5.90); Red Cell Distribution Width 15.1 % (11.8-14.3); White Blood Cell 9.6 10^3/uL (4.4-10.8)
[2024-05-31 05:06] VITALS: BP 137/75; PULSE 69; RESP 20; TEMP 98.1; O2SAT 93
[2024-05-31 08:41] VITALS: BP 145/76; PULSE 69; RESP 18; TEMP 97.6; O2SAT 96
[2024-05-31] MEDS: DOXAZOSIN MESYL 2 MG TAB PO SCH (09:35)
[2024-05-31] MEDS ORDERED: VANCOMYCIN 1.25GM/250ML 250 ML IV SCH (11:00)
[2024-05-31] MEDS: VANCOMYCIN 1GM/200ML PREMIX 200 ML IV SCH (11:19)
--- NOTE | 2024-05-31 12:04 | DVHPN2 ---
Reviewed: Care Plan, H&P, Labs, Medications, Previous Orders, Radiology Changes from previous H/P or p: No Changes Eyes: No Pain, No Vision change, No Conjunctivae inflammation, No Eyelid inflammation, No Other, No Redness ENT: No Ear pain, No Ear discharge, No Nose pain, No Nose discharge, No Nose congestion, No Mouth pain, No Mouth swelling, No Throat pain, No Throat swelling, No Other Cardiovascular: No Chest Pain, No Palpitations, No Orthopnea, No Paroxysmal Noc. Dyspnea, No Edema, No Lt Headedness, No Other Respiratory: No Cough, No Dry, No Shortness of breath, No SOB with excertion, No Wheezing, No Hemoptysis, No Pleuritic Pain, No Sputum, No Other Gastrointestinal: No Nausea, No Vomiting, No Abdominal Pain, No Diarrhea, No Constipation, No Melena, No Hematochezia, No Other Genitourinary: No Dysuria, No Frequency, No Incontinence, No Hematuria, No Retention, No Other Musculoskeletal: No other, No neck pain, No shoulder pain, No arm pain, No back pain, No hand pain, No leg pain; foot pain (Bilateral) Skin: No Rash, No Lesions, No Jaundice, No Bruising; Other (Bilateral foot redness, skin keloid in the neck.) Objective Vitals Vital Signs Date Time Temp Pulse Resp B/P (MAP) Pulse Ox O2 Delivery O2 Flow Rate FiO2 05/31/24 09:35 145/76 05/31/24 08:41 97.6 69 18 96 97.6 05/30/24 20:00 Room Air* 0 21 Intake/Output Intake and Output 05/31/24 07:00 Intake Total 1590 ml Balance 1590 ml Intake Oral 1390 ml IV Total 200 ml # Voids 3 Medications Current Medications Medications Dose Ordered Sig/Sheng Route Start Time Stop Time Status Last Admin Dose Admin Sodium Chloride 10 ml Q8HR IV 05/28/24 06:00 05/31/24 06:33 10 ML Acetaminophen/ Hydrocodone Bitart 1 tab Q4HP PRN PO 05/27/24 22:15 Ondansetron HCl 4 mg Q4HP PRN IV 05/27/24 22:15 Docusate Sodium 100 mg BIDPRN PRN PO 05/27/24 22:15 05/30/24 08:42 100 MG Acetaminophen 650 mg Q6HP PRN PO 05/27/24 22:15 Nitroglycerin 0.4 mg Q5MINP PRN SL 05/27/24 22:30 Morphine Sulfate 2 mg Q30M PRN IV 05/27/24 22:30 Vancomycin HCl 0 ml @ 0 mls/hr UD IV 05/30/24 12:45 Doxazosin Mesylate 2 mg DAILY PO 05/31/24 10:00 05/31/24 09:35 2 MG Sodium Chloride 10 ml QSHIFT@10,22 IV 05/30/24 22:00 05/31/24 09:35 10 ML Vancomycin HCl 200 ml @ 200 mls/hr Q18H IV 05/31/24 11:00 05/31/24 11:19 200 MLS/HR Laboratory Results Laboratory Tests 05/28/24 05:23 05/31/24 04:23 Coagulation Test 05/30/24 14:49 Prothrombin Time 11.2 sec (9.3-11.8) Prothrombin Time INR 1.06 (0.9-1.15) Activated Partial Thromboplast Time 28.8 SEC (24.5-34.5) Microbiology Microbiology Date/Time Source Procedure Growth Status 05/28/24 17:17 Blood Blood Culture - Preliminary NO GROWTH AFTER 48 HOURS OF INCUBATION. 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 and care Severe malnutrition Time spent 45 minutes Patient is full code PICC line for IV vancomycin Spoke to patient's "future" Lou [phone] on the phone and she agreed for the fdc facility placement for IV antibiotics the patient also agreed. Plan discussed with: Patient My Orders Orders - JASON KHAN MD Procedure Category Date Status Time * Picc Line Consult CONS 05/30/24 Transmitted 12:11 Vancomycin Per [facility] 05/30/24 In Process Pharmacy 12:45 Doxazosin Mesyl [facility] 05/31/24 In Process Tablet (Cardura 10:00 Nursing Protocol Picc [facility] 05/30/24 In Process 18:55 Change Dressing Prn [facility] 05/30/24 In Process 18:55 PICC BD 05/30/24 Transmitted 18:55 Sodium Chloride Lock [facility] 05/30/24 In Process (Saline Lock Ns) 22:00 Do Not Use Picc For [facility] 05/30/24 In Process Blood Cult 18:55 May Draw Blood From [facility] 05/30/24 In Process Picc 18:55 Ok To Use Picc [facility] 05/30/24 In Process 18:55 Change Picc Dressing [facility] 05/30/24 In Process Q7 Days 18:55 Vancomycin,Trough LAB 06/01/24 Verified 22:00 Vancomycin Per [facility] 06/01/24 In Process Pharmacy Protoc 23:00 Creatinine LAB 06/01/24 Verified 04:00 Vancomycin 1gm/200ml PHA 05/31/24 In Process Premix 11:00 Date of Service: May 31, 2024 Billing Provider: JASON KHAN MD Common Visit Codes: [id number] INP/OBS CARE(HIGH) JASON KHAN MD May 31, 2024 12:04
--- NOTE | 2024-05-31 12:09 | DVHDS2 ---
Discharge Summary Date of Admission May 27, 2024 at 22:21 Date of Discharge: May 31, 2024 Admitting Diagnosis Generalized weakness and infection of the left lower leg Wounds: Left foot cellulitis Labs/Diagnostic Data: Laboratory Results Test 05/31/24 04:23 05/30/24 14:49 05/28/24 05:23 05/27/24 19:09 White Blood Count 9.6 10^3/uL (4.4-10.8) Red Blood Count 4.26 10^6/uL (4.5-5.90) Hemoglobin 12.7 g/dL (13.5-17.5) Hematocrit 38.6 % (41.0-53.0) Mean Corpuscular Volume 90.5 fL (80.0-100.0) Mean Corpuscular Hemoglobin 29.9 pg (28.0-32.0) Mean Corpuscular Hemoglobin Concent 33.0 g/dL (32.0-36.0) Red Cell Distribution Width 15.1 % (11.8-14.3) Platelet Count 217 10^3/uL (140-450) Mean Platelet Volume 7.7 fL (6.9-10.8) Neutrophils (%) (Auto) 62.4 % (37.0-80.0) Lymphocytes (%) (Auto) 22.2 % (10.0-50.0) Monocytes (%) (Auto) 8.7 % (0.0-12.0) Eosinophils (%) (Auto) 6.0 % (0.0-7.0) Basophils (%) (Auto) 0.7 % (0.0-2.0) Neutrophils # (Auto) 6.0 10 ^3/uL (1.6-8.6) Lymphocytes # (Auto) 2.1 10 ^3/uL (0.4-5.4) Monocytes # (Auto) 0.8 10 ^3/uL (0-1.3) Eosinophils # (Auto) 0.6 10 ^3/uL (0-0.8) Basophils # (Auto) 0.1 10 ^3/uL (0-0.2) Nucleated Red Blood Cells 0.1 % Creatinine 1.43 mg/dL (0.700-1.30) Glomerular Filtration Rate Calc 52 mL/min (>90) Random Vancomycin Level 11.5 ug/mL (5-10) Prothrombin Time 11.2 sec (9.3-11.8) Prothrombin Time INR 1.06 (0.9-1.15) Activated Partial Thromboplast Time 28.8 SEC (24.5-34.5) Sodium Level 141 mmol/L (136-145) Potassium Level 3.8 mmol/L (3.5-5.1) Chloride Level 107 mmol/L (98-107) Carbon Dioxide Level 27 mmol/L (20-31) Anion Gap 7 (5-15) Blood Urea Nitrogen 19 mg/dL (9-23) BUN/Creatinine Ratio 14.8 (10.0-20.0) Serum Glucose 89 mg/dL (74-106) Calcium Level 9.5 mg/dL (8.7-10.4) Total Bilirubin 0.4 mg/dL (0.2-1.0) Aspartate Amino Transferase (AST) 12 U/L (13-40) Alanine Aminotransferase (ALT) 14 U/L (7-40) Alkaline Phosphatase 108 U/L (46-116) Total Protein 7.1 g/dL (5.7-8.2) Albumin 3.9 g/dL (3.2-4.8) Lactic Acid Level 1.9 mmol/L (0.4-2.0) Other Laboratory Tests 05/31/24 04:23 05/28/24 05:23 Brief Hx & Hospital Course: 74-year-old male who was in board and care burden to the ER for altered mental status confusion and infection of the left foot. The patient was found to have acute cellulitis of left foot started on vancomycin. Blood cultures were negative patient has a history of left great toe amputation in the past he also has dementia uncontrolled diabetes with a very high blood sugars which were controlled with the insulin acute UTI treated with Rocephin patient has had history of bilateral osteomyelitis of the feet and history of multiple sclerosis. Patient being discharged to half-way facility for antibiotics vancomycin 1 g IV daily for one month for the left foot cellulitis. Discussed with the patient and his "future" Lou [phone] and they are agreeable for the half-way facility placement. 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 History of left great toe amputation Dementia Uncontrolled diabetes: Insulin sliding scale Chronic kidney disease Acute urinary tract infection: Urine cultures Rocephin History of Osteomyelitis bilateral feet Multiple sclerosis Patient came from [facility] Severe malnutrition Discharge Disposition: [facility] Discharge Instruct/Medications Diet: Cardiac 2g Na,low cholest Activity: [id number] Follow Up/Referral: Follow up With the half-way Dr Medications: Vancomycin 1 g IV daily for one month for cellulitis leg See list for other meds 35 (Time Taken For discharge summary 35 minutes) Discharge Statement: "Patient was advised to return to the ER or call 911 if any headaches, dizziness, shortness of breath, chest pain, abdominal pain, bleeding, fevers, or worsening of medical condition. Patient was counseled about treatment plan, medications, possible side effects, patientverbalized understanding. All questions were answered to the best of my ability. 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
[2024-05-31 12:45] VITALS: BP 148/73; PULSE 73; RESP 18; TEMP 97.9; O2SAT 94
[2024-05-31 16:57] VITALS: BP 154/73; PULSE 75; RESP 18; TEMP 97.9; O2SAT 94
[2024-05-31 21:00] VITALS: BP 143/88; PULSE 75; RESP 18; TEMP 98; O2SAT 96
[2024-06-01] VITALS (7 sets, daily range): BP systolic 118–151; BP diastolic 58–79; PULSE 68–75; RESP 12–20; TEMP 96.6–98.8; O2SAT 93–97
[2024-06-01 05:12] LABS: COVID19 ANTIGEN SOFIA FIA NEGATIVE (NEGATIVE)
[2024-06-02 00:45] VITALS: BP 135/68; PULSE 69; RESP 12; TEMP 98.1; O2SAT 95
[2024-06-02 04:21] VITALS: BP 127/58; PULSE 68; RESP 14; TEMP 98.1; O2SAT 96
[2024-06-02 09:06] VITALS: BP 127/59; PULSE 67; RESP 16; TEMP 97.9; O2SAT 92
[2024-06-02 10:05] LABS: INR 1.07 (0.9-1.15); Prothrombin Time 11.3 sec (9.3-11.8)
--- NOTE | 2024-06-02 12:11 | DVHPN2 ---
Reviewed: Care Plan, H&P, Labs, Medications, Previous Orders, Radiology Changes from previous H/P or p: No Changes Eyes: No Pain, No Vision change, No Conjunctivae inflammation, No Eyelid inflammation, No Other, No Redness ENT: No Ear pain, No Ear discharge, No Nose pain, No Nose discharge, No Nose congestion, No Mouth pain, No Mouth swelling, No Throat pain, No Throat swelling, No Other Cardiovascular: No Chest Pain, No Palpitations, No Orthopnea, No Paroxysmal Noc. Dyspnea, No Edema, No Lt Headedness, No Other Respiratory: No Cough, No Dry, No Shortness of breath, No SOB with excertion, No Wheezing, No Hemoptysis, No Pleuritic Pain, No Sputum, No Other Gastrointestinal: No Nausea, No Vomiting, No Abdominal Pain, No Diarrhea, No Constipation, No Melena, No Hematochezia, No Other Genitourinary: No Dysuria, No Frequency, No Incontinence, No Hematuria, No Retention, No Other Musculoskeletal: No other, No neck pain, No shoulder pain, No arm pain, No back pain, No hand pain, No leg pain; foot pain (Bilateral) Skin: No Rash, No Lesions, No Jaundice, No Bruising; Other (Bilateral foot redness, skin keloid in the neck.) Objective Vitals Vital Signs Date Time Temp Pulse Resp B/P (MAP) Pulse Ox O2 Delivery O2 Flow Rate FiO2 06/02/24 09:16 127/59 06/02/24 09:06 97.9 67 16 92 97.9 06/01/24 20:00 Room Air* 0 N/A Nasal Cannula* Intake/Output Intake and Output 06/02/24 07:00 Intake Total 1250 ml Output Total 1200 ml Balance 50 ml Intake Oral 1050 ml IV Total 200 ml Output Urine Total 1200 ml # Voids 6 # Bowel Movements 1 Medications Current Medications Medications Dose Ordered Sig/Sheng Route Start Time Stop Time Status Last Admin Dose Admin Sodium Chloride 10 ml Q8HR IV 05/28/24 06:00 06/01/24 23:54 10 ML Acetaminophen/ Hydrocodone Bitart 1 tab Q4HP PRN PO 05/27/24 22:15 Ondansetron HCl 4 mg Q4HP PRN IV 05/27/24 22:15 Docusate Sodium 100 mg BIDPRN PRN PO 05/27/24 22:15 05/30/24 08:42 100 MG Acetaminophen 650 mg Q6HP PRN PO 05/27/24 22:15 Nitroglycerin 0.4 mg Q5MINP PRN SL 05/27/24 22:30 Morphine Sulfate 2 mg Q30M PRN IV 05/27/24 22:30 Vancomycin HCl 0 ml @ 0 mls/hr UD IV 05/30/24 12:45 Doxazosin Mesylate 2 mg DAILY PO 05/31/24 10:00 06/02/24 09:16 2 MG Sodium Chloride 10 ml QSHIFT@10,22 IV 05/30/24 22:00 06/02/24 09:17 10 ML Vancomycin HCl 150 ml @ 150 mls/hr Q22H IV 06/02/24 21:00 Laboratory Results Laboratory Tests 05/28/24 05:23 05/31/24 04:23 06/01/24 03:56 Coagulation Test 06/02/24 09:37 Prothrombin Time 11.3 sec (9.3-11.8) Prothrombin Time INR 1.07 (0.9-1.15) Activated Partial Thromboplast Time 29.0 SEC (24.5-34.5) Microbiology Microbiology Date/Time Source Procedure Growth Status 05/28/24 17:17 Blood Blood Culture - Preliminary NO GROWTH AFTER 72 HOURS OF INCUBATION. 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 History of left great toe amputation Dementia Uncontrolled diabetes: Insulin sliding scale Chronic kidney disease Acute urinary tract infection: Urine cultures Rocephin History of Osteomyelitis bilateral feet Multiple sclerosis Patient came from [facility] and care Severe malnutrition Patient was discharged on 05/31/2024 on home health for IV antibiotics 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 arts 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 and home health care case manager working on arranging home health and IV infusion Plan discussed with: Patient My Orders Orders - JASON KHAN MD Procedure Category Date Status Time PICC BD 06/02/24 Transmitted 07:00 Vancomycin PHA 06/02/24 In Process 750mg/150ml 21:00 Vancomycin,Trough LAB 06/04/24 Verified 16:00 Vancomycin Per [facility] 06/04/24 In Process Pharmacy Protoc 16:00 Complete Blood Count LAB 06/04/24 Verified 04:00 Creatinine LAB 06/04/24 Verified 04:00 Date of Service: Jun 02, 2024 Billing Provider: JASON KHAN MD Common Visit Codes: [id number] INP/OBS CARE(HIGH) JASON KHAN MD Jun 02, 2024 12:11
[2024-06-02 13:00] VITALS: BP 140/70; PULSE 62; RESP 15; TEMP 98.1; O2SAT 91
[2024-06-02] MEDS: LACTULOSE 20Gm/30ML SOLN PO ONE (14:23)
[2024-06-02 16:30] VITALS: BP 137/70; PULSE 63; RESP 16; TEMP 97.9; O2SAT 94
[2024-06-02] MEDS: LIDOCAINE 1% (LOCAL ANESTH.) PF 5ml SDV ID ONE (17:15)
[2024-06-02 20:00] VITALS: PULSE 65; RESP 16; O2SAT 96
[2024-06-02] MEDS: VANCOMYCIN 750mg/150ml 150 ML IV SCH (22:50)
[2024-06-02] MEDS: SODIUM CHLOR 0.9% PF (SALINE LOCK) 10ML VIAL/SYR IV SCH (22:51)
[2024-06-03 05:00] VITALS: BP 131/60; PULSE 70; RESP 16; TEMP 97.6; O2SAT 94
[2024-06-03 08:00] VITALS: PULSE 70; RESP 18; O2SAT 95
[2024-06-03 09:00] VITALS: BP 101/59; PULSE 72; RESP 18; TEMP 98; O2SAT 94
[2024-06-03 10:27] VITALS: BP 123/60; PULSE 76; RESP 18; TEMP 36.7; O2SAT 96
--- NOTE | 2024-06-03 11:09 | DVHPN2 ---
Reviewed: Care Plan, H&P, Labs, Medications, Previous Orders, Radiology Changes from previous H/P or p: No Changes Eyes: No Pain, No Vision change, No Conjunctivae inflammation, No Eyelid inflammation, No Other, No Redness ENT: No Ear pain, No Ear discharge, No Nose pain, No Nose discharge, No Nose congestion, No Mouth pain, No Mouth swelling, No Throat pain, No Throat swelling, No Other Cardiovascular: No Chest Pain, No Palpitations, No Orthopnea, No Paroxysmal Noc. Dyspnea, No Edema, No Lt Headedness, No Other Respiratory: No Cough, No Dry, No Shortness of breath, No SOB with excertion, No Wheezing, No Hemoptysis, No Pleuritic Pain, No Sputum, No Other Gastrointestinal: No Nausea, No Vomiting, No Abdominal Pain, No Diarrhea, No Constipation, No Melena, No Hematochezia, No Other Genitourinary: No Dysuria, No Frequency, No Incontinence, No Hematuria, No Retention, No Other Musculoskeletal: No other, No neck pain, No shoulder pain, No arm pain, No back pain, No hand pain, No leg pain; foot pain (Bilateral) Skin: No Rash, No Lesions, No Jaundice, No Bruising; Other (Bilateral foot redness, skin keloid in the neck.) Objective Vitals Vital Signs Date Time Temp Pulse Resp B/P (MAP) Pulse Ox O2 Delivery O2 Flow Rate FiO2 06/03/24 10:27 36.7 76 18 96 06/03/24 10:12 101/69 06/02/24 20:00 Room Air* 0 N/A Nasal Cannula* Intake/Output Intake and Output 06/03/24 07:00 Intake Total 1150 ml Balance 1150 ml Intake Oral 1000 ml IV Total 150 ml # Voids 3 Medications Current Medications Medications Dose Ordered Sig/Sheng Route Start Time Stop Time Status Last Admin Dose Admin Sodium Chloride 10 ml Q8HR IV 05/28/24 06:00 06/03/24 08:09 10 ML Acetaminophen/ Hydrocodone Bitart 1 tab Q4HP PRN PO 05/27/24 22:15 Ondansetron HCl 4 mg Q4HP PRN IV 05/27/24 22:15 Docusate Sodium 100 mg BIDPRN PRN PO 05/27/24 22:15 05/30/24 08:42 100 MG Acetaminophen 650 mg Q6HP PRN PO 05/27/24 22:15 Nitroglycerin 0.4 mg Q5MINP PRN SL 05/27/24 22:30 Morphine Sulfate 2 mg Q30M PRN IV 05/27/24 22:30 Vancomycin HCl 0 ml @ 0 mls/hr UD IV 05/30/24 12:45 Doxazosin Mesylate 2 mg DAILY PO 05/31/24 10:00 06/03/24 10:12 2 MG Sodium Chloride 10 ml QSHIFT@, IV 05/30/24 22:00 06/03/24 10:12 10 ML Vancomycin HCl 150 ml @ 150 mls/hr Q22H IV 06/02/24 21:00 06/02/24 22:50 150 MLS/HR Sodium Chloride 10 ml QSHIFT@, IV 06/02/24 22:00 06/02/24 22:51 10 ML Laboratory Results Laboratory Tests 05/28/24 05:23 05/31/24 04:23 06/01/24 03:56 Microbiology Microbiology Date/Time Source Procedure Growth Status 05/28/24 17:17 Blood Blood Culture - Final NO GROWTH AFTER 5 DAYS OF INCUBATION. 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 History of left great toe amputation Dementia Uncontrolled diabetes: Insulin sliding scale Chronic kidney disease Acute urinary tract infection: Urine cultures Rocephin History of Osteomyelitis bilateral feet Multiple sclerosis Patient came from [facility] and care Severe malnutrition Patient was discharged on 05/31/2024 on home health for IV antibiotics 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 working on arranging home health and IV infusion Examined today: No new complaints Plan discussed with: Patient My Orders Orders - JASON KHAN MD Procedure Category Date Status Time Change Dressing Prn [facility] 06/02/24 In Process 17:10 Sodium Chloride Lock PHA 06/02/24 In Process (Saline Lock Ns) 22:00 Do Not Use Picc For [facility] 06/02/24 In Process Blood Cult 17:10 May Draw Blood From [facility] 06/02/24 In Process Picc 17:10 Ok To Use Picc [facility] 06/02/24 In Process 17:10 Change Picc Dressing [facility] 06/02/24 In Process Q7 Days 17:10 Discharge DISCHARGE 06/03/24 Transmitted 11:07 Date of Service: Jun 03, 2024 Billing Provider: JASON KHAN MD Common Visit Codes: [id number] INP/OBS CARE(HIGH) JASON KHAN MD Jun 03, 2024 11:09
== END 2024-06-03 11:20 | disposition home health service (06) | DRG 602 ==
LOC: EDBD 18:05 → EDUNIT# 18:05 → ER 18:12 → OVERFLOW 22:21 → WEST WING 05-28 13:16
PROVIDERS: ADMIT Nurse Practitioner Family; ATTEND Family Medicine
PROC: 02HV33Z Insertion of Infusion Device into Superior Vena Cava, Percutaneous Approach (ICD-10-PCS; 2024-05-30)
PROC: B548ZZA Ultrasonography of Superior Vena Cava, Guidance (ICD-10-PCS; 2024-05-30)
PROC: 02HV33Z Insertion of Infusion Device into Superior Vena Cava, Percutaneous Approach (ICD-10-PCS; principal; 2024-06-02)
PROC: B548ZZA Ultrasonography of Superior Vena Cava, Guidance (ICD-10-PCS; 2024-06-02)
DX: L03.116 Cellulitis of left lower limb (principal); E43 Unspecified severe protein-calorie malnutrition; N39.0 Urinary tract infection, site not specified; L03.115 Cellulitis of right lower limb; Z20.822 Contact with and (suspected) exposure to COVID-19; E11.22 Type 2 diabetes mellitus with diabetic chronic kidney disease; E11.65 Type 2 diabetes mellitus with hyperglycemia; F03.90 Unspecified dementia, unspecified severity, without behavioral disturbance, psychotic disturbance, mood disturbance, and anxiety; G35 Multiple sclerosis; N18.9 Chronic kidney disease, unspecified; Z89.412 Acquired absence of left great toe; Z88.0 Allergy status to penicillin; Z79.899 Other long term (current) drug therapy; Z68.22 Body mass index [BMI] 22.0-22.9, adult
CPT/HCPCS: 36415; 36569; 73630; 76937; 80048; 80053; 80202; 82565; 83605; 85025; 85610; 85730; 87040; 87081; 87426; 92610; G0378

== ENCOUNTER 2024-06-06 09:38 | Inpatient (IN) | payer MEDICARE, OTHER ==
[~2024-06-06] VITALS: Ht 167.6 cm; Wt 75.5 kg
[~2024-06-06 09:38] MED LIST changes: +ATOR20TA50 PO; +CLOP75TA70 PO; +DOCU-265 PO; +DOX2T PO; +DOXA4TAB83 PO; +PANT40T PO; +PARO-135 PO
--- NOTE | 2024-06-06 10:01 | ED.PDOC ---
History of Present Illness HPI Comments 74Y M with PMHx dementia, MS, DM, CKD, HTN, HLD, and GERD presents to ED via EMS for chief complaint tube replacement. Per EMS, pt pulled out picc line from lt arm this morning at an assisted living facility. Pt is A&Ox1. Pt was d/c from [facility] on 06/03/2024 for dx lt foot cellulitis and was sent home with Vancomycin 1g IV daily for one month. Chief Complaint: Tube Replacement Time Seen by MD: 09:55 Primary Care Provider: ANA MARIA Reviewed Notes: Medications, Allergies Allergies: Coded Allergies: Penicillin G (Verified Allergy, Unknown, 09/01/15) Home Meds Reported Medications Clopidogrel Bisulfate (CLOPIDOGREL) 75 Mg Tab, 1 TAB PO DAILY 05/28/24 Pantoprazole Sodium Sesquihydr (Pantoprazole Sodium) 40 Mg Tab, 1 TAB PO QAM 05/28/24 Docusate Sodium (Docusate Sodium) 100 Mg Cap, 1 CAP PO QAM 05/28/24 Atorvastatin Calcium (ATORVASTATIN CALCIUM) 20 Mg Tab, 1 TAB PO 05/28/24 Doxazosin Mesylate (Doxazosin Mesylate) 4 Mg Tab, 1 TAB PO QAM 05/28/24 Doxazosin Mesylate (Doxazosin Mesylate) 2 Mg Tab, 1 TAB PO 05/28/24 Docusate Sodium (Colace) 100 Mg Cap, PO TID 12/20/12 Cimetidine (Cimetidine) 400 Mg Tab, PO DAILY 12/20/12 [Paxil] No Conflict Check, 40 MG PO DAILY 12/20/12 Information Source: Emergency Med Personnel Mode of Arrival: EMS Severity: Mild Timing: Hours Duration: Since onset Prehospital treatment: None Past Medical History PAST MEDICAL HISTORY: Dementia, DM, GERD, High Lipids, HTN, UTI'S Past Medical History (Other): MS Surgical History: Denies all surgeries Family History Family History: Reviewed,noncontributory to illness Social History Smoker: Non-Smoker Alcohol: Denies ETOH Use Drugs: Denies Drug Use Lives In: Assisted Care Constitutional: denies: chills, diaphoresis, fatigue, fever, malaise, sweats, weakness, others EENTM: denies: blurred vision, double vision, ear bleeding, ear discharge, ear drainage, ear pain, ear ringing, eye pain, eye redness, hearing loss, mouth pain, mouth swelling, nasal discharge, nose bleeding, nose congestion, nose pain, photophobia, tearing, throat pain, throat swelling, voice changes, others Respiratory: denies: cough, hemoptysis, orthopnea, SOB at rest, shortness of breath, SOB with excertion, stridor, wheezing, others Cardiovascular: denies: chest pain, dizzy spells, diaphoresis, Dyspnea on exertion, edema, irregular heart beat, left arm pain, lightheadedness, palpitations, PND, syncope, others Gastrointestinal: denies: abdomen distended, abdominal pain, blood streaked bowels, constipated, diarrhea, dysphagia, difficulty swallowing, hematemesis, melena, nausea, poor appetite, poor fluid intake, rectal bleeding, rectal pain, vomiting, others Genitourinary: denies: burning, dysuria, flank pain, frequency, hematuria, incontinence, penile discharge, penile sore, pain, testicle pain, testicle swelling, urgency, others Neurological: denies: dizziness, fainting, headache, left sided numbness, left sided weakness, numbness, paresthesia, pre-existing deficit, right sided numbness, right sided weakness, seizure, speech problems, tingling, tremors, weakness, others Musculoskeletal: denies: back pain, gout, joint pain, joint swelling, muscle pain, muscle stiffness, neck pain, others Integumetry: denies: bruises, change in color, change in hair/nails, dryness, laceration, lesions, lumps, rash, wounds, others Allergic/Immunocompromised: denies: Difficulty Healing, Frequent Infections, Hives, Itching, others Hematologic/Lymphatic: denies: anemia, blood clots, easy bleeding, easy bruising, swollen glands, others Endocrine: denies: excessive hunger, excessive sweating, excessive thirst, excessive urination, flushing, intolerance to cold, intolerance to heat, unexplained weight gain, unexplained weight loss, others Psychiatric: denies: anxiety, bipolar disorder, depression, hopeless, panic disorder, schizophrenia, sleepless, suicidal, others Unable to Obtain due to: Dementia All Other Systems: Reviewed and Negative Physical Exam General Appearance: Mild Distress HEENT: Normal ENT Inspection, Pharynx Normal, TMs Normal Neck: Full Range of Motion, Non-Tender, Normal, Normal Inspection Respiratory: Chest Non-Tender, Lungs Clear, No Accessory Muscle Use, No Respiratory Distress, Normal Breath Sounds Cardiovascular: No Edema, No JVD, No Murmur, No Gallop, Normal Peripheral Pulses, Regular Rate/Rhythm Breast Exam: Deferred Gastrointestinal: No Organomegaly, Non Tender, No Pulsatile Mass, Normal Bowel Sounds, Soft Genitalia: Deferred Pelvic: Deferred Rectal: Deferred Extremities: No calf tenderness, Normal capillary refill, Normal inspection, Normal range of motion, Non-tender, No pedal edema Musculoskeletal : Apperance: Normal Neurologic: musician instrumental II-XII nml as Tested, Motor Weakness, No Sensory Deficits, Other (The patient has dementia) Cerebellar Function: Normal Reflexes: Normal Skin: Dry, Normal Color, Warm Lymphatic: No Adenopathy Was a procedure done? Was a procedure done?: No Differential Dx Considerations may include: PICC line removal, sepsis, generalized weakness X-Ray, Labs, Meds, VS Vital Signs Date Time Temp Pulse Resp B/P (MAP) Pulse Ox O2 Delivery O2 Flow Rate FiO2 06/06/24 16:00 68 14 146/54 (84) 95 06/06/24 14:00 64 14 136/66 (89) 98 06/06/24 12:00 63 14 148/73 (98) 97 06/06/24 10:08 97.2 64 16 150/70 (96) 97 97.2 06/06/24 10:08 64 14 97 Room Air* 0 21 06/06/24 09:52 98.7 67 16 143/88 (106) 99 Lab Test 06/06/24 10:00 Range/Units White Blood Count 5.9 # 4.4-10.8 10^3/uL Red Blood Count 4.42 L 4.5-5.90 10^6/uL Hemoglobin 13.2 L 13.5-17.5 g/dL Hematocrit 40.2 L 41.0-53.0 % Mean Corpuscular Volume 91.1 80.0-100.0 fL Mean Corpuscular Hemoglobin 29.9 28.0-32.0 pg Mean Corpuscular Hemoglobin Concent 32.8 32.0-36.0 g/dL Red Cell Distribution Width 15.1 H 11.8-14.3 % Platelet Count 181 140-450 10^3/uL Mean Platelet Volume 7.8 6.9-10.8 fL Neutrophils (%) (Auto) 64.8 37.0-80.0 % Lymphocytes (%) (Auto) 18.7 10.0-50.0 % Monocytes (%) (Auto) 6.3 0.0-12.0 % Eosinophils (%) (Auto) 9.2 H 0.0-7.0 % Basophils (%) (Auto) 1.0 0.0-2.0 % Neutrophils # (Auto) 3.8 1.6-8.6 10 ^3/uL Lymphocytes # (Auto) 1.1 0.4-5.4 10 ^3/uL Monocytes # (Auto) 0.4 0-1.3 10 ^3/uL Eosinophils # (Auto) 0.5 0-0.8 10 ^3/uL Basophils # (Auto) 0.1 0-0.2 10 ^3/uL Nucleated Red Blood Cells 0.1 % Prothrombin Time 10.6 9.3-11.8 sec Prothrombin Time INR 1.00 0.9-1.15 Activated Partial Thromboplast Time 31.1 24.5-34.5 SEC Current Medications Medications (Trade) Dose Ordered Sig/Sheng Route Start Time Stop Time Status Last Admin Lidocaine HCl (Xylocaine 1%) 0.5 ml PRN ONCE ID 06/06/24 12:30 06/06/24 13:11 DC 06/06/24 11:52 IV Hep-Lock is being ordered at this time The CBC and chemistry panel are within normal limits The patient has a PICC line placed to the extremity but the patient ultimately pulled it out. At this time, the patient was being admitted The patient pulled the PICC line out that was placed here in the emergency department's as well as so we feel that the patient needs to be admitted for possible interventional radiology placement Time of 1ST Reevaluation: 10:25 Reevaluation 1ST: Unchanged Patient Education/Counseling: Other (The patient has dementia and is confused) Family Education/Counseling: No Family Present Departure 1 Departure Time of Disposition: 16:47 Impression: Primary Impression: PIC line (peripherally inserted central catheter) removal Disposition: ADMITTED INPATIENT Admit to: Med Surg Condition: Fair Critical Care Note Critical Care Time?: No Stability Stability form required: Yes Unstable for transfer: ED Physician Assesment (Clinical assesment) Heart Score Heart Score: Heart Score Response (Comments) Value History N/A 0 EKG N/A 0 Age N/A 0 Risk Factors N/A 0 Troponin N/A 0 Total 0 I personally scribed for GAVI FONSECA MD ([email or web address]) on 06/06/24 at 10:01. Electronically submitted by Xi Sharma ([email or web address]). GAVI FONSECA MD Jun 06, 2024 10:01
[2024-06-06 10:08] VITALS: PULSE 64; RESP 14; O2SAT 97
[2024-06-06 10:13] LABS: Basophils # (auto) 0.1 10 ^3/uL (0-0.2); Eosinophils # (auto) 0.5 10 ^3/uL (0-0.8); Eosinophils % (auto) 9.2 % (0.0-7.0); Hematocrit 40.2 % (41.0-53.0); Hemoglobin 13.2 g/dL (13.5-17.5); Lymphocytes # (auto) 1.1 10 ^3/uL (0.4-5.4); Lymphocytes % (auto) 18.7 % (10.0-50.0); Mean Corpuscular Hemoglobin 29.9 pg (28.0-32.0); Mean Corpuscular Hgb Conc. 32.8 g/dL (32.0-36.0); Mean Corpuscular Volume 91.1 fL (80.0-100.0); Monocytes # (auto) 0.4 10 ^3/uL (0-1.3); Monocytes % (auto) 6.3 % (0.0-12.0); Neutrophils # (auto) 3.8 10 ^3/uL (1.6-8.6); Neutrophils % (auto) 64.8 % (37.0-80.0); Nucleated Red Blood Cells % 0.1 %; Platelet Count (auto) 181 10^3/uL (140-450); Red Blood Cells 4.42 10^6/uL (4.5-5.90); Red Cell Distribution Width 15.1 % (11.8-14.3); White Blood Cell 5.9 10^3/uL (4.4-10.8)
[2024-06-06 10:48] LABS: Partial Thromboplastin Time 31.1 SEC (24.5-34.5); Prothrombin Time 10.6 sec (9.3-11.8)
[2024-06-06] MEDS: LIDOCAINE 1% (LOCAL ANESTH.) PF 5ml SDV ID ONE (11:52)
[2024-06-06] MEDS ORDERED: VANCOMYCIN PER PHARMACY 0 MG IV SCH ×2 (17:00→23:15)
[2024-06-06 17:19] LABS: Alanine Aminotransferase 13 U/L (7-40); Alkaline Phosphatase 102 U/L (46-116); Anion Gap 5 (5-15); Aspartate Aminotransferase 10 U/L (13-40); BUN/Creatinine Ratio 15.1 (10.0-20.0); Blood Urea Nitrogen 19 mg/dL (9-23); Calcium 9.4 mg/dL (8.7-10.4); Carbon Dioxide 26 mmol/L (20-31); Chloride 111 mmol/L (98-107); Glucose 92 mg/dL (74-106); Potassium 3.9 mmol/L (3.5-5.1); Sodium 142 mmol/L (136-145)
[2024-06-06 17:20] LABS: Albumin 3.8 g/dL (3.2-4.8); Bilirubin, Total 0.3 mg/dL (0.2-1.0); Total Protein 6.7 g/dL (5.7-8.2)
[2024-06-06] MEDS: SODIUM CHLOR 0.9% PF (SALINE LOCK) 10ML VIAL/SYR IV SCH ×2 (17:50→23:21)
[2024-06-06] MEDS: VANCOMYCIN 1GM/200ML PREMIX 200 ML IV ONE (17:50)
[2024-06-06] MEDS ORDERED: DEXTROSE (50%) 50ML SYRG IV PRN ×2 (18:00→23:15)
--- NOTE | 2024-06-06 18:14 | DVHHP2 ---
History of Present Illness Reason for Visit: Tube placement History of Present Illness This 74-year-old male presents in the ED via EMS for IV access placement. The patient with history of dementia, confused was recently admitted with a diagnosis of acute foot cellulitis and the patient was discharged with a PICC line for vanco IV for one month. The patient pulled PICC line while in a alf and during this ER visit. Past medical history of osteomyelitis, dementia, BPH, GERD, and hyperlipidemia. Past Medical History As stated in HPI Past Surgical History Unknown Family History Unknown Past Social History Resides in alf Review of Systems Review of Systems ROS see HPI Allergies: Coded Allergies: Penicillin G (Verified Allergy, Unknown, 09/01/15) Medications Current Medications Medications Dose Ordered Sig/Sheng Route Start Time Stop Time Status Last Admin Dose Admin Sodium Chloride 10 ml QSHIFT@10,22 IV 06/06/24 22:00 06/06/24 17:50 10 ML Vancomycin HCl 0 ml @ 0 mls/hr UD IV 06/06/24 17:00 Exam Vital Signs Vital Signs Date Time Temp Pulse Resp B/P (MAP) Pulse Ox O2 Delivery O2 Flow Rate FiO2 06/06/24 16:00 68 14 146/54 (84) 95 06/06/24 10:08 97.2 97.2 06/06/24 10:08 Room Air* 0 21 Exam Left foot cellulitis General Appearance: No acute distress, Other HEENT: Atraumatic, PERRLA, Mucous membr. moist/pink Respiratory: Clear to auscultation Cardiovascular: Regular rate, Normal S1, Normal S2 Abdominal: Normal bowel sounds, Soft, No tenderness Extremities: No clubbing, No edema Neuro: Other (Confused, history of dementia) Labs/Xrays Labs Test 06/06/24 10:00 Range/Units White Blood Count 5.9 # 4.4-10.8 10^3/uL Red Blood Count 4.42 L 4.5-5.90 10^6/uL Hemoglobin 13.2 L 13.5-17.5 g/dL Hematocrit 40.2 L 41.0-53.0 % Mean Corpuscular Volume 91.1 80.0-100.0 fL Mean Corpuscular Hemoglobin 29.9 28.0-32.0 pg Mean Corpuscular Hemoglobin Concent 32.8 32.0-36.0 g/dL Red Cell Distribution Width 15.1 H 11.8-14.3 % Platelet Count 181 140-450 10^3/uL Mean Platelet Volume 7.8 6.9-10.8 fL Neutrophils (%) (Auto) 64.8 37.0-80.0 % Lymphocytes (%) (Auto) 18.7 10.0-50.0 % Monocytes (%) (Auto) 6.3 0.0-12.0 % Eosinophils (%) (Auto) 9.2 H 0.0-7.0 % Basophils (%) (Auto) 1.0 0.0-2.0 % Neutrophils # (Auto) 3.8 1.6-8.6 10 ^3/uL Lymphocytes # (Auto) 1.1 0.4-5.4 10 ^3/uL Monocytes # (Auto) 0.4 0-1.3 10 ^3/uL Eosinophils # (Auto) 0.5 0-0.8 10 ^3/uL Basophils # (Auto) 0.1 0-0.2 10 ^3/uL Nucleated Red Blood Cells 0.1 % Prothrombin Time 10.6 9.3-11.8 sec Prothrombin Time INR 1.00 0.9-1.15 Activated Partial Thromboplast Time 31.1 24.5-34.5 SEC Sodium Level 142 136-145 mmol/L Potassium Level 3.9 3.5-5.1 mmol/L Chloride Level 111 H 98-107 mmol/L Carbon Dioxide Level 26 20-31 mmol/L Anion Gap 5 5-15 Blood Urea Nitrogen 19 9-23 mg/dL Creatinine 1.26 0.700-1.30 mg/dL Glomerular Filtration Rate Calc 61 >90 mL/min BUN/Creatinine Ratio 15.1 10.0-20.0 Serum Glucose 92 74-106 mg/dL Calcium Level 9.4 8.7-10.4 mg/dL Total Bilirubin 0.3 0.2-1.0 mg/dL Aspartate Amino Transferase (AST) 10 L 13-40 U/L Alanine Aminotransferase (ALT) 13 7-40 U/L Alkaline Phosphatase 102 46-116 U/L Total Protein 6.7 5.7-8.2 g/dL Albumin 3.8 3.2-4.8 g/dL PROCEDURE(s): LFOOT - L FOOT 3 VIEW XRAY REASON: left foot pain and redness ORDER NUMBER(s): [id number], ACCESSION NUMBER(s): [id number] CLINICAL INDICATION: left foot pain and redness TECHNIQUE: XY L FOOT 3 VIEW XRAY Comparison: None FINDINGS/IMPRESSION: There is no evidence of acute fracture or dislocation. Amputation of the 1st dig it with residual proximal metatarsal. The visualized joint space is well maintained. The alignment is anatomical. There is no radiopaque foreign body. Assessment/Plan Assessment/Plan # acute right foot cellulitis currently on vanco IV # Dementia Admit to medical unit PCP like for the patient pulled PICC line, neuro baseline confused # hyperlipidemia Statins # BPH Doxazosin # GERD Pantoprazole DVT prophylaxis Medical plan discussed with patient and RN Plan discussed with: Patient My Orders Orders - ALBERTO THOMAS Procedure Category Date Status Time Urinalysis LAB 06/06/24 Logged 16:56 Vancomycin Per PHA 06/06/24 In Process Pharmacy 17:00 Vancomycin 1gm/200ml PHA 06/06/24 In Process [facility] 17:15 Complete Blood Count LAB 06/07/24 Verified 04:00 Creatinine LAB 06/07/24 Verified 04:00 Vancomycin,Random LAB 06/07/24 Verified 04:00 Admit ADMIT 06/06/24 Verified 17:52 Code Status CODE 06/06/24 Verified 17:52 Complete Blood Count LAB 06/07/24 Verified 04:00 Cardiac DIET 06/06/24 Verified Diet-2gna,Lofat,Lochol Dinner Condition: Fair MARE 06/06/24 Verified 17:52 Enoxaparin Sodium PHA 06/07/24 Verified (Lovenox) 10:00 Glucose Blood PHA 06/06/24 Verified (Accu-Chek Comfort 22:00 Mild Sliding Scale PHA 06/06/24 Verified 22:00 Dextrose 50% Syringe PHA 06/06/24 Verified 18:00 Basic Metabolic Panel LAB 06/07/24 Verified 04:00 Date of Service: Jun 06, 2024 Billing Provider: ALBERTO THOMAS Common Visit Codes: [id number] INP/OBS CARE (HIGH) ALBERTO THOMAS Jun 06, 2024 18:14
[2024-06-06 19:32] VITALS: PULSE 64; RESP 12; O2SAT 96
[2024-06-06 21:35] VITALS: BP 130/73; PULSE 67; RESP 19; TEMP 98.7; O2SAT 96
[2024-06-06] MEDS ORDERED: ATORVASTATIN 20 MG TAB PO SCH (22:00)
[2024-06-06] MEDS ORDERED: ACCU-CHEK COMFORT CURVE STRIP VI SCH (22:00)
[2024-06-06] MEDS ORDERED: InsuLIN REG 1unit/0.01ml Soln (100units/ml) SC SCH (22:00)
[2024-06-06 22:54] VITALS: BP 130/73; PULSE 66; RESP 18; RESP 19; TEMP 97.8; O2SAT 96
[2024-06-06] MEDS: InsuLIN REG 1unit/0.01ml Soln (100units/ml) SC SCH (23:10)
[2024-06-06] MEDS: ATORVASTATIN 20 MG TAB PO SCH (23:20)
[2024-06-06] MEDS: ACCU-CHEK COMFORT CURVE STRIP VI SCH (23:21)
[2024-06-07 05:00] VITALS: BP 122/76; PULSE 72; RESP 19; TEMP 98.6; O2SAT 96
[2024-06-07 06:40] LABS: Basophils # (auto) 0.1 10 ^3/uL (0-0.2); Basophils % (auto) 0.8 % (0.0-2.0); Eosinophils # (auto) 0.6 10 ^3/uL (0-0.8); Eosinophils % (auto) 8.2 % (0.0-7.0); Hematocrit 38.4 % (41.0-53.0); Hemoglobin 13.3 g/dL (13.5-17.5); Lymphocytes # (auto) 1.4 10 ^3/uL (0.4-5.4); Lymphocytes % (auto) 20.4 % (10.0-50.0); Mean Corpuscular Hemoglobin 30.8 pg (28.0-32.0); Mean Corpuscular Hgb Conc. 34.7 g/dL (32.0-36.0); Mean Corpuscular Volume 88.8 fL (80.0-100.0); Monocytes # (auto) 0.5 10 ^3/uL (0-1.3); Monocytes % (auto) 7.6 % (0.0-12.0); Neutrophils # (auto) 4.3 10 ^3/uL (1.6-8.6); Nucleated Red Blood Cells % 0.1 %; Platelet Count (auto) 207 10^3/uL (140-450); Red Blood Cells 4.33 10^6/uL (4.5-5.90); Red Cell Distribution Width 14.6 % (11.8-14.3); White Blood Cell 6.9 10^3/uL (4.4-10.8)
[2024-06-07 06:43] LABS: Chloride 111 mmol/L (98-107); Potassium 4.2 mmol/L (3.5-5.1); Sodium 142 mmol/L (136-145)
[2024-06-07 06:44] LABS: Anion Gap 8 (5-15); Calcium 9.4 mg/dL (8.7-10.4); Carbon Dioxide 23 mmol/L (20-31)
[2024-06-07 06:49] LABS: BUN/Creatinine Ratio 16.5 (10.0-20.0); Blood Urea Nitrogen 19 mg/dL (9-23); Glucose 97 mg/dL (74-106)
[2024-06-07] MEDS: PANTOPRAZOLE 40 MG TAB PO SCH (06:50)
[2024-06-07] MEDS: DOCUSATE SOD 100 MG CAP PO SCH (06:50)
[2024-06-07] MEDS ORDERED: DOCUSATE SOD 100 MG CAP PO SCH (07:00)
[2024-06-07] MEDS ORDERED: PANTOPRAZOLE 40 MG TAB PO SCH (07:00)
[2024-06-07 08:00] VITALS: PULSE 68; RESP 16; O2SAT 0
[2024-06-07 09:00] VITALS: BP 126/69; PULSE 68; RESP 19; TEMP 97.3; O2SAT 95
[2024-06-07] MEDS ORDERED: ENOXAPARIN SOD 30 MG/0.3 ML SYRINGE SC SCH (10:00)
[2024-06-07] MEDS ORDERED: DOXAZOSIN MESYL 2 MG TAB PO SCH ×2 (10:00)
[2024-06-07] MEDS: ENOXAPARIN SOD 30 MG/0.3 ML SYRINGE SC SCH (10:47)
[2024-06-07] MEDS: DOXAZOSIN MESYL 2 MG TAB PO SCH (10:48)
--- NOTE | 2024-06-07 16:00 | DVHPN2 ---
Subjective 74-year-old male with a history of multiple sclerosis, generalized weakness, chronic kidney disease, history of osteomyelitis of both feet back in 2019 status post bilateral feet surgeries BPH GERD Dyslipidemia Dementia was here in the hospital and was just discharged 4 days ago with home health for IV vancomycin for the cellulitis however the patient apparently pulled out his PICC line and therefore he was admitted again here. He had the PICC line done here again yesterday but the patient also pulled it out due to his dementia The patient has bilateral cellulitis Changes from previous H/P or p: Changes Objective Vitals Vital Signs Date Time Temp Pulse Resp B/P (MAP) Pulse Ox O2 Delivery O2 Flow Rate FiO2 06/07/24 10:48 126/69 06/07/24 09:00 97.3 68 19 95 97.3 06/07/24 08:00 Room Air* 0 21 Intake/Output Intake and Output 06/07/24 07:00 Intake Total 150 ml Output Total 0 ml Balance 150 ml Intake Oral 150 ml Output Urine Total 0 ml General Appearance: Alert, Oriented X3, Cooperative Lungs: Clear to auscultation, Normal air movement Cardiovascular: Regular rate, Normal S1, Normal S2 Abdomen: Normal bowel sounds, Soft, No tenderness Extremities: No edema Medications Current Medications Medications Dose Ordered Sig/Sheng Route Start Time Stop Time Status Last Admin Dose Admin Atorvastatin Calcium 20 mg HS PO 06/06/24 22:00 06/06/24 23:20 20 MG Dextrose 50 ml UD PRN IV 06/06/24 23:15 Docusate Sodium 100 mg QAM PO 06/07/24 07:00 06/07/24 06:50 100 MG Doxazosin Mesylate 2 mg DAILY PO 06/07/24 10:00 06/07/24 10:48 2 MG Enoxaparin Sodium 30 mg DAILY SC 06/07/24 10:00 06/07/24 10:47 30 MG Diagnostic Test (Pha) 1 strip ACHS 06/06/24 23:10 06/07/24 11:07 1 STRIP Insulin Human Regular ACHS SC 06/06/24 23:10 Pantoprazole Sodium 40 mg QAM PO 06/07/24 07:00 06/07/24 06:50 40 MG Sodium Chloride 10 ml QSHIFT@ IV 06/06/24 23:11 06/07/24 10:47 10 ML Vancomycin HCl 0 ml @ 0 mls/hr UD IV 06/06/24 23:15 Laboratory Results Laboratory Tests 06/07/24 06:08 Chemistry Test 06/07/24 06:08 Calcium Level 9.4 mg/dL (8.7-10.4) Microbiology Microbiology Date/Time Source Procedure Growth Status 06/07/24 01:30 Nose MRSA Screen - Final Complete Assessment/Plan Assessment/Plan Bilateral feet cellulitis History of osteomyelitis Multiple sclerosis Chronic kidney disease Dyslipidemia Dementia BPH Plan Continue IV antibiotics The patient pulled out his PICC line twice We will have to switch him to p.o. antibiotics instead of IV due to his dementia such as doxycycline Continue home health upon discharge Consult podiatry Full code Advance directives discussed for 15 minutes Discussed with his POA Lou over the phone Plan discussed with: Patient Date of Service: Jun 07, 2024 Billing Provider: BRONSON MELGAR MD Common Visit Codes: [id number] INP/OBS CARE(HIGH) Secondary Visit Codes: [id number] CARE PLAN 30 MINUTES BRONSON MELGAR MD Jun 07, 2024 16:00
[2024-06-07 17:00] VITALS: BP 131/73; PULSE 67; RESP 18; TEMP 97.5; O2SAT 95
[2024-06-07 20:00] VITALS: PULSE 68; RESP 16; O2SAT 0
[2024-06-08] VITALS (8 sets, daily range): BP systolic 110–136; BP diastolic 55–74; PULSE 66–80; RESP 15–18; TEMP 97.6–98.5; O2SAT 0–93
[2024-06-08 06:24] LABS: Calcium 9.8 mg/dL (8.7-10.4); Chloride 109 mmol/L (98-107); Potassium 3.9 mmol/L (3.5-5.1); Sodium 140 mmol/L (136-145)
[2024-06-08 06:25] LABS: Anion Gap 7 (5-15); Carbon Dioxide 24 mmol/L (20-31)
[2024-06-08 06:30] LABS: BUN/Creatinine Ratio 16.4 (10.0-20.0); Blood Urea Nitrogen 25 mg/dL (9-23); Glucose 92 mg/dL (74-106)
--- NOTE | 2024-06-08 11:13 | DVHPN2 ---
Subjective No new complaints MRSA screen is negative Changes from previous H/P or p: Changes Objective Vitals Vital Signs Date Time Temp Pulse Resp B/P (MAP) Pulse Ox O2 Delivery O2 Flow Rate FiO2 06/08/24 09:29 124/62 06/08/24 09:00 98.3 74 17 92 98.3 06/08/24 07:58 Room Air* 0 21 Intake/Output Intake and Output 06/08/24 07:00 Intake Total 689 ml Balance 689 ml Intake Oral 689 ml # Voids 5 General Appearance: Alert, Oriented X3, Cooperative Lungs: Clear to auscultation, Normal air movement Cardiovascular: Regular rate, Normal S1, Normal S2 Abdomen: Normal bowel sounds, Soft, No tenderness Extremities: No edema Medications Current Medications Medications Dose Ordered Sig/Sheng Route Start Time Stop Time Status Last Admin Dose Admin Atorvastatin Calcium 20 mg HS PO 06/06/24 22:00 06/08/24 00:06 20 MG Dextrose 50 ml UD PRN IV 06/06/24 23:15 Docusate Sodium 100 mg QAM PO 06/07/24 07:00 06/08/24 05:52 100 MG Doxazosin Mesylate 2 mg DAILY PO 06/07/24 10:00 06/08/24 09:29 2 MG Enoxaparin Sodium 30 mg DAILY SC 06/07/24 10:00 06/08/24 09:29 30 MG Diagnostic Test (Pha) 1 strip ACHS 06/06/24 23:10 06/08/24 10:56 1 STRIP Insulin Human Regular ACHS SC 06/06/24 23:10 Pantoprazole Sodium 40 mg QAM PO 06/07/24 07:00 06/08/24 05:52 40 MG Sodium Chloride 10 ml QSHIFT@10,22 IV 06/06/24 23:11 06/08/24 09:29 10 ML Vancomycin HCl 0 ml @ 0 mls/hr UD IV 06/06/24 23:15 Laboratory Results Laboratory Tests 06/07/24 06:08 06/08/24 04:38 Chemistry Test 06/08/24 04:38 Calcium Level 9.8 mg/dL (8.7-10.4) Microbiology Microbiology Date/Time Source Procedure Growth Status 06/07/24 01:30 Nose MRSA Screen - Final Complete Assessment/Plan Assessment/Plan Bilateral feet cellulitis History of osteomyelitis Multiple sclerosis Chronic kidney disease Dyslipidemia Dementia BPH Plan 06/07/2024: Continue IV antibiotics The patient pulled out his PICC line twice We will have to switch him to p.o. antibiotics instead of IV due to his dementia such as doxycycline Continue home health upon discharge Consult podiatry Full code Advance directives discussed for 15 minutes Discussed with his POA Lou over the phone 06/08/2024: Continue IV vancomycin Podiatry consult, Dr. Crystal saw the patient, does not recommend any surgical treatment Continue medical management We will discharge the patient home tomorrow on p.o. doxycycline and follow up with Podiatry as an outpatient Plan discussed with: Patient, Other My Orders Orders - BRONSON MELGAR MD Procedure Category Date Status Time *Podiatry Consult Dr. WU 06/07/24 Transmitted Marah 15:55 Date of Service: Jun 08, 2024 Billing Provider: BRONSON MELGAR MD Common Visit Codes: [id number] INP/OBS CARE(HIGH) BRONSON MELGAR MD Jun 08, 2024 11:13
--- NOTE | 2024-06-08 13:36 | DVHINCON2 ---
Date of service: Jun 08, [address] Marina MD Reason for Consultation Cellulitis bilateral feet. History of Present Illness This 74-year-old male who was seen at bed side. The patient with history of dementia, confused was recently admitted with a diagnosis of acute foot cellulitis and the patient was discharged with a PICC line for vanco IV for one month. The patient pulled PICC line [facility] a [facility] and during this ER visit. Past medical history of osteomyelitis, dementia, BPH, GERD, and hyperlip idemia. Past Medical History Dementia, Previous OM, GERD, BPH, hyperlipidemia. Past Surgical History foot surgery Family History: Diabetes mellitus G8 FATHER Family History reviewed and is non-contributory to management of this case. Social History Denies tobacco use denies alcohol use denies illicit drug use. lives in a penitentiary. Allergies: Coded Allergies: Penicillin G (Verified Allergy, Unknown, 09/01/15) Home Meds Reported Medications Paroxetine Hydrochloride (Paroxetine Hydrochloride) 40 Mg Tab, 1 TAB PO DAILY for 28 Days, #28 06/07/24 Clopidogrel Bisulfate (CLOPIDOGREL) 75 Mg Tab, 1 TAB PO DAILY for 28 Days, #28 05/28/24 Pantoprazole Sodium Sesquihydr (Pantoprazole Sodium) 40 Mg Tab, 1 TAB PO QAM for 28 Days, #28 05/28/24 Docusate Sodium (Docusate Sodium) 100 Mg Cap, 1 CAP PO QAM for 28 Days, #28 05/28/24 Atorvastatin Calcium (ATORVASTATIN CALCIUM) 20 Mg Tab, 1 TAB PO DAILY for 28 Days, #28 05/28/24 Doxazosin Mesylate (Doxazosin Mesylate) 4 Mg Tab, 1 TAB PO QAM for 28 Days, #28 05/28/24 Doxazosin Mesylate (Doxazosin Mesylate) 2 Mg Tab, 1 TAB PO QPM for 28 Days, #28 05/28/24 Discontinued Reported Medications [Paxil] No Conflict Check, 40 MG PO DAILY 12/20/12 Review of Systems ROS is currently negative, otherwise addressed in HPI. Vital Signs Vital Signs Date Time Temp Pulse Resp B/P (MAP) Pulse Ox O2 Delivery O2 Flow Rate FiO2 06/08/24 09:29 124/62 06/08/24 09:00 98.3 74 17 92 98.3 06/08/24 07:58 Room Air* 0 21 Physical Exam EXAM: General Appearance: No acute distress, Other HEENT: Atraumatic, PERRLA, Mucous membr. moist/pink Respiratory: Clear to auscultation Cardiovascular: Regular rate, Normal S1, Normal S2 Abdominal: Normal bowel sounds, Soft, No tenderness Extremities: No clubbing, No edema, minimal cellulitis is noted to bilateral feet, no open wounds, no ascending cellulitis is noted. DP/PT +1/4 bilaterally, CFT 3 seconds bilaterally. Neuro: Other (Confused, history of dementia) Left foot x-ray: negative for OM Labs/Diagnostic Data Labs Test 06/08/24 10:54 06/08/24 04:38 06/07/24 06:08 06/06/24 10:00 Range/Units POC Glucose 110 H 70-106 mg/dl Sodium Level 140 136-145 mmol/L Potassium Level 3.9 3.5-5.1 mmol/L Chloride Level 109 H 98-107 mmol/L Carbon Dioxide Level 24 20-31 mmol/L Anion Gap 7 5-15 Blood Urea Nitrogen 25 H 9-23 mg/dL Creatinine 1.52 H 0.700-1.30 mg/dL Glomerular Filtration Rate Calc 48 >90 mL/min BUN/Creatinine Ratio 16.4 10.0-20.0 Serum Glucose 92 74-106 mg/dL Calcium Level 9.8 8.7-10.4 mg/dL Random Vancomycin Level 16.4 H 5-10 ug/mL White Blood Count 6.9 4.4-10.8 10^3/uL Red Blood Count 4.33 L 4.5-5.90 10^6/uL Hemoglobin 13.3 L 13.5-17.5 g/dL Hematocrit 38.4 L 41.0-53.0 % Mean Corpuscular Volume 88.8 80.0-100.0 fL Mean Corpuscular Hemoglobin 30.8 28.0-32.0 pg Mean Corpuscular Hemoglobin Concent 34.7 32.0-36.0 g/dL Red Cell Distribution Width 14.6 H 11.8-14.3 % Platelet Count 207 140-450 10^3/uL Mean Platelet Volume 7.7 6.9-10.8 fL Neutrophils (%) (Auto) 63.0 37.0-80.0 % Lymphocytes (%) (Auto) 20.4 10.0-50.0 % Monocytes (%) (Auto) 7.6 0.0-12.0 % Eosinophils (%) (Auto) 8.2 H 0.0-7.0 % Basophils (%) (Auto) 0.8 0.0-2.0 % Neutrophils # (Auto) 4.3 1.6-8.6 10 ^3/uL Lymphocytes # (Auto) 1.4 0.4-5.4 10 ^3/uL Monocytes # (Auto) 0.5 0-1.3 10 ^3/uL Eosinophils # (Auto) 0.6 0-0.8 10 ^3/uL Basophils # (Auto) 0.1 0-0.2 10 ^3/uL Nucleated Red Blood Cells 0.1 % Prothrombin Time 10.6 9.3-11.8 sec Prothrombin Time INR 1.00 0.9-1.15 Activated Partial Thromboplast Time 31.1 24.5-34.5 SEC Total Bilirubin 0.3 0.2-1.0 mg/dL Aspartate Amino Transferase (AST) 10 L 13-40 U/L Alanine Aminotransferase (ALT) 13 7-40 U/L Alkaline Phosphatase 102 46-116 U/L Total Protein 6.7 5.7-8.2 g/dL Albumin 3.8 3.2-4.8 g/dL Microbiology Date/Time Source Procedure Growth Status 06/07/24 01:30 Nose MRSA Screen - Final Complete Assessment Primary Diagnosis: Minimal cellulitis bilateral feet.L>R. Secondary Diagnosis: BPH Dementia GERD hyperlipidemia Plan/Recommendation -the patient may be discharged on Doxycycline 100mg #20 1po bid -the patient to follow up at my office next week. -all questions were answered to patients's satisfaction. Thank you for your consultation. Plan discussed with: Patient CAMELIA STEINBERG [place] AMIN Jun 08, 2024 13:36
[2024-06-08] MEDS ORDERED: VANCOMYCIN 750mg/150ml 150 ML IV ONE (17:00)
[2024-06-09 01:00] VITALS: BP 114/68; PULSE 76; RESP 17; TEMP 98.6; O2SAT 92
[2024-06-09 05:00] VITALS: BP_SYST 110; BP_SYST 139; BP_DIAS 55; BP_DIAS 80; PULSE 79; RESP 16; TEMP 98.1; O2SAT 92; O2SAT 93
[2024-06-09 06:09] LABS: Chloride 111 mmol/L (98-107); Sodium 143 mmol/L (136-145)
[2024-06-09 06:10] LABS: Anion Gap 10 (5-15); Calcium 9.5 mg/dL (8.7-10.4); Carbon Dioxide 22 mmol/L (20-31)
[2024-06-09 06:15] LABS: BUN/Creatinine Ratio 18.9 (10.0-20.0); Blood Urea Nitrogen 27 mg/dL (9-23); Glucose 102 mg/dL (74-106)
[2024-06-09 07:30] VITALS: O2SAT 0
[2024-06-09 08:54] VITALS: BP 129/75; PULSE 72; RESP 17; O2SAT 94
[2024-06-09] MEDS ORDERED: DOXY1CAP57 PO (11:52)
[2024-06-09 13:00] VITALS: BP 131/72; PULSE 71; RESP 18; TEMP 97.9; O2SAT 93
[2024-06-09 13:20] VITALS: BP 129/75; TEMP 36.7
[2024-06-09] MEDS: VANCOMYCIN 500 MG in D5W 5% 100 ML IV ONE (15:27)
--- NOTE | 2024-06-09 18:34 | DVHDS2 ---
Discharge Summary Date of Admission Jun 06, 2024 at 17:52 Date of Discharge: Jun 09, 2024 Labs/Diagnostic Data: Laboratory Results Test 06/09/24 11:30 06/09/24 05:13 06/07/24 06:08 06/06/24 10:00 POC Glucose 101 mg/dl (70-106) Sodium Level 143 mmol/L (136-145) Potassium Level 4.0 mmol/L (3.5-5.1) Chloride Level 111 mmol/L (98-107) Carbon Dioxide Level 22 mmol/L (20-31) Anion Gap 10 (5-15) Blood Urea Nitrogen 27 mg/dL (9-23) Creatinine 1.43 mg/dL (0.700-1.30) Glomerular Filtration Rate Calc 52 mL/min (>90) BUN/Creatinine Ratio 18.9 (10.0-20.0) Serum Glucose 102 mg/dL (74-106) Calcium Level 9.5 mg/dL (8.7-10.4) Random Vancomycin Level 10.3 ug/mL (5-10) White Blood Count 6.9 10^3/uL (4.4-10.8) Red Blood Count 4.33 10^6/uL (4.5-5.90) Hemoglobin 13.3 g/dL (13.5-17.5) Hematocrit 38.4 % (41.0-53.0) Mean Corpuscular Volume 88.8 fL (80.0-100.0) Mean Corpuscular Hemoglobin 30.8 pg (28.0-32.0) Mean Corpuscular Hemoglobin Concent 34.7 g/dL (32.0-36.0) Red Cell Distribution Width 14.6 % (11.8-14.3) Platelet Count 207 10^3/uL (140-450) Mean Platelet Volume 7.7 fL (6.9-10.8) Neutrophils (%) (Auto) 63.0 % (37.0-80.0) Lymphocytes (%) (Auto) 20.4 % (10.0-50.0) Monocytes (%) (Auto) 7.6 % (0.0-12.0) Eosinophils (%) (Auto) 8.2 % (0.0-7.0) Basophils (%) (Auto) 0.8 % (0.0-2.0) Neutrophils # (Auto) 4.3 10 ^3/uL (1.6-8.6) Lymphocytes # (Auto) 1.4 10 ^3/uL (0.4-5.4) Monocytes # (Auto) 0.5 10 ^3/uL (0-1.3) Eosinophils # (Auto) 0.6 10 ^3/uL (0-0.8) Basophils # (Auto) 0.1 10 ^3/uL (0-0.2) Nucleated Red Blood Cells 0.1 % Prothrombin Time 10.6 sec (9.3-11.8) Prothrombin Time INR 1.00 (0.9-1.15) Activated Partial Thromboplast Time 31.1 SEC (24.5-34.5) Total Bilirubin 0.3 mg/dL (0.2-1.0) Aspartate Amino Transferase (AST) 10 U/L (13-40) Alanine Aminotransferase (ALT) 13 U/L (7-40) Alkaline Phosphatase 102 U/L (46-116) Total Protein 6.7 g/dL (5.7-8.2) Albumin 3.8 g/dL (3.2-4.8) Other Laboratory Tests 06/09/24 05:13 06/07/24 06:08 Brief Hx & Hospital Course: 74-year-old male with a history of multiple sclerosis, generalized weakness, dementia, chronic kidney disease, history of osteomyelitis in his feet many years ago was here in the hospital for cellulitis of his feet last week and was discharged home on IV vancomycin through a PICC line but he pulled out the PICC line and therefore he came to the hospital and had another 1 and he pulled it again Evaluation here showed cellulitis in both of his feet and toes Podiatry consult was called, he has no evidence of osteomyelitis on x-rays done a week ago Because of the mental confusion and the repeated pulling out of his lines, we recommended for him to be discharged on oral antibiotics this time The patient is stable otherwise and therefore he was discharged home on p.o. doxycycline for 2 weeks Final diagnoses: Bilateral feet cellulitis History of osteomyelitis Multiple sclerosis Chronic kidney disease Dyslipidemia Dementia BPH Condition at Discharge: Stable Final Diagnosis/Problems List Bilateral feet cellulitis History of osteomyelitis Multiple sclerosis Chronic kidney disease Dyslipidemia Dementia BPH Discharge Disposition: Home SNF Discharge Will this Physician continue t: No Discharge Instruct/Medications Diet: Cardiac 2g Na,low cholest Activity: Light activity Follow Up/Referral: PCP JORDAN Medications: Doxycycline 100 mg bid x 14 days Discharge Statement: "Patient was advised to return to the ER or call 911 if any headaches, dizziness, shortness of breath, chest pain, abdominal pain, bleeding, fevers, or worsening of medical condition. Patient was counseled about treatment plan, medications, possible side effects, patientverbalized understanding. All questions were answered to the best of my ability. This discharge took greater then 30 minutes in planning, reviewing documentation, counseling the patient, and discussing with other team members." ASSESSMENT ASSESSMENT Assessment Bilateral feet cellulitis History of osteomyelitis Multiple sclerosis Chronic kidney disease Dyslipidemia Dementia BPH Date of Service: Jun 09, 2024 Billing Provider: BRONSON MELGAR MD Common Visit Codes: 67775-OCT/OBS DISCH DAY >30min BRONSON MELGAR MD Jun 09, 2024 18:34
== END 2024-06-09 17:24 | disposition home or self-care (01) | DRG 603 ==
LOC: EDUNIT# 09:38 → ER 09:38 → EDBD 09:38 → OVERFLOW 17:52 → ER 18:00 → OVERFLOW 18:00 → WEST WING 21:35
PROVIDERS: ADMIT Registered Nurse; ATTEND Internal Medicine Geriatric Medicine
PROC: 02HV33Z Insertion of Infusion Device into Superior Vena Cava, Percutaneous Approach (ICD-10-PCS; principal; 2024-06-06)
PROC: B548ZZA Ultrasonography of Superior Vena Cava, Guidance (ICD-10-PCS; 2024-06-06)
DX: L03.115 Cellulitis of right lower limb (principal); L03.116 Cellulitis of left lower limb; E78.5 Hyperlipidemia, unspecified; N40.0 Benign prostatic hyperplasia without lower urinary tract symptoms; K21.9 Gastro-esophageal reflux disease without esophagitis; F03.90 Unspecified dementia, unspecified severity, without behavioral disturbance, psychotic disturbance, mood disturbance, and anxiety; G35 Multiple sclerosis; N18.9 Chronic kidney disease, unspecified; E11.22 Type 2 diabetes mellitus with diabetic chronic kidney disease; I12.9 Hypertensive chronic kidney disease with stage 1 through stage 4 chronic kidney disease, or unspecified chronic kidney disease; Z83.3 Family history of diabetes mellitus; Z88.0 Allergy status to penicillin
CPT/HCPCS: 36415; 36569; 80048; 80053; 80202; 82962; 85025; 85610; 85730; 87081; G0378; J1815; J7060

== ENCOUNTER 2025-05-05 18:37 | Inpatient (IN) | payer MEDICARE, MEDICAID ==
[~2025-05-05] VITALS: Ht 182.9 cm; Wt 84.5 kg
[~2025-05-05 18:37] MED LIST changes: -CIME-52 PO; -DOCU-94 PO; +DOXY1CAP57 PO; -PAXIL PO
--- NOTE | 2025-05-05 18:51 | ED.PDOC ---
General HPI Comments This is a 75 year old male AARONA presenting to the ED with chief complaint of UTI. EMS reports patient had a PCP visit earlier today where he was diagnosed with a UTI. EMS relays patient has been experiencing penile discharge with associated cloudy urine for the past few days. EMS states patient had been noticed in the [facility] facility to be drinking much more water than usual, but not eating as much. Patient is paraplegic. Patient denies any dysuria, hematuria, flank pain, abdominal pain, fever, or chills. Chief Complaint: Urinary Time Seen by MD: 18:47 Primary Care Provider: pt does not know Reviewed notes: Nurses Notes, Musical Instruments Assembler Notes, Medications, Allergies Allergies: Coded Allergies: Penicillin G (Verified Allergy, Unknown, 09/01/15) Home Meds Active Scripts Doxycycline Monohydrate (Doxycycline Monohydrate) 100 Mg Cap, 1 CAP PO BID, #28 CAP Prov:BRONSON MELGAR MD 06/09/24 Reported Medications Paroxetine Hydrochloride (Paroxetine Hydrochloride) 40 Mg Tab, 1 TAB PO DAILY for 28 Days, #28 06/07/24 Clopidogrel Bisulfate (CLOPIDOGREL) 75 Mg Tab, 1 TAB PO DAILY for 28 Days, #28 05/28/24 Pantoprazole Sodium Sesquihydr (Pantoprazole Sodium) 40 Mg Tab, 1 TAB PO QAM for 28 Days, #28 05/28/24 Docusate Sodium (Docusate Sodium) 100 Mg Cap, 1 CAP PO QAM for 28 Days, #28 05/28/24 Atorvastatin Calcium (ATORVASTATIN CALCIUM) 20 Mg Tab, 1 TAB PO DAILY for 28 Days, #28 05/28/24 Doxazosin Mesylate (Doxazosin Mesylate) 4 Mg Tab, 1 TAB PO QAM for 28 Days, #28 05/28/24 Doxazosin Mesylate (Doxazosin Mesylate) 2 Mg Tab, 1 TAB PO QPM for 28 Days, #28 05/28/24 Information Source: Patient, Emergency Med Personnel Mode of Arrival: EMS Severity: Moderate Timing: Hours Duration: Since onset Prehospital treatment: None Onset: Spontaneous Symptoms: Other (penile discharge, cloudy urine) History of: UTI Location: None Penile discharge: White associated signs and symptoms: Penile Discharge Past Medical History PAST MEDICAL HISTORY: Dementia, DM, GERD, High Lipids, HTN, UTI'S Past Medical History (Other): Paraplegic Surgical History: Denies all surgeries Family History Family History: Reviewed,noncontributory to illness Social History Smoker: Non-Smoker Alcohol: Denies ETOH Use Drugs: Denies Drug Use Lives In: Assisted Care Constitutional: denies: chills, diaphoresis, fatigue, fever, malaise, sweats, weakness, others EENTM: denies: blurred vision, double vision, ear bleeding, ear discharge, ear drainage, ear pain, ear ringing, eye pain, eye redness, hearing loss, mouth pain, mouth swelling, nasal discharge, nose bleeding, nose congestion, nose pain, photophobia, tearing, throat pain, throat swelling, voice changes, others Respiratory: denies: cough, hemoptysis, orthopnea, SOB at rest, shortness of breath, SOB with excertion, stridor, wheezing, others Cardiovascular: denies: chest pain, dizzy spells, diaphoresis, Dyspnea on exertion, edema, irregular heart beat, left arm pain, lightheadedness, palpitati ons, PND, syncope, others Gastrointestinal: denies: abdomen distended, abdominal pain, blood streaked bowels, constipated, diarrhea, dysphagia, difficulty swallowing, hematemesis, melena, nausea, poor appetite, poor fluid intake, rectal bleeding, rectal pain, vomiting, others Genitourinary: reports: penile discharge, others (Cloudy urine); denies: burning, dysuria, flank pain, frequency, hematuria, incontinence, penile sore, pain, testicle pain, testicle swelling, urgency Neurological: denies: dizziness, fainting, headache, left sided numbness, left sided weakness, numbness, paresthesia, pre-existing deficit, right sided numbness, right sided weakness, seizure, speech problems, tingling, tremors, weakness, others Musculoskeletal: denies: back pain, gout, joint pain, joint swelling, muscle pain, muscle stiffness, neck pain, others Integumetry: denies: bruises, change in color, change in hair/nails, dryness, laceration, lesions, lumps, rash, wounds, others Allergic/Immunocompromised: denies: Difficulty Healing, Frequent Infections, Hives, Itching, others Hematologic/Lymphatic: denies: anemia, blood clots, easy bleeding, easy bruising, swollen glands, others Endocrine: reports: excessive thirst; denies: excessive hunger, excessive sweating, excessive urination, flushing, intolerance to cold, intolerance to heat, unexplained weight gain, unexplained weight loss, others Psychiatric: denies: anxiety, bipolar disorder, depression, hopeless, panic disorder, schizophrenia, sleepless, suicidal, others All Other Systems: Reviewed and Negative Physical Exam General Appearance: Moderate Distress HEENT: Normal ENT Inspection, Pharynx Normal, TMs Normal Neck: Full Range of Motion, Non-Tender, Normal, Normal Inspection Respiratory: Chest Non-Tender, Lungs Clear, No Accessory Muscle Use, No Respiratory Distress, Normal Breath Sounds Cardiovascular: No Edema, No JVD, No Murmur, No Gallop, Normal Peripheral Pulses, Regular Rate/Rhythm Breast Exam: Deferred Gastrointestinal: No Organomegaly, Non Tender, No Pulsatile Mass, Normal Bowel Sounds, Soft Genitalia: Deferred Pelvic: Deferred Rectal: Deferred Extremities: No calf tenderness, Normal capillary refill, No pedal edema Musculoskeletal : Apperance: Normal Neurologic: Alert, Motor Weakness (The patient is paralyzed from the waist down), Other (Generalized weakness) Cerebellar Function: Normal Reflexes: Normal Skin: Dry, Normal Color, Warm Lymphatic: No Adenopathy Was a procedure done? Was a procedure done?: No Differential Diagnosis Kidney stone (Female): N/A Urinary Problem (Male): Urinary Retention, Urolithiasis, UTI X-Ray, Labs, Meds, VS Vital Signs Date Time Temp Pulse Resp B/P (MAP) Pulse Ox O2 Delivery O2 Flow Rate FiO2 05/05/25 18:46 98.4 77 18 133/73 98 98.4 Lab Test 05/05/25 19:39 05/05/25 19:21 Range/Units Lactic Acid Level Pending White Blood Count 7.3 4.4-10.8 10^3/uL Red Blood Count 4.28 L 4.5-5.90 10^6/uL Hemoglobin 12.4 L 13.5-17.5 g/dL Hematocrit 37.8 L 41.0-53.0 % Mean Corpuscular Volume 88.2 80.0-100.0 fL Mean Corpuscular Hemoglobin 29.1 28.0-32.0 pg Mean Corpuscular Hemoglobin Concent 33.0 32.0-36.0 g/dL Red Cell Distribution Width 15.8 H 11.8-14.3 % Platelet Count 249 140-450 10^3/uL Mean Platelet Volume 7.1 6.9-10.8 fL Neutrophils (%) (Auto) 65.9 37.0-80.0 % Lymphocytes (%) (Auto) 19.4 10.0-50.0 % Monocytes (%) (Auto) 9.0 0.0-12.0 % Eosinophils (%) (Auto) 4.9 0.0-7.0 % Basophils (%) (Auto) 0.8 0.0-2.0 % Neutrophils # (Auto) 4.8 1.6-8.6 10 ^3/uL Lymphocytes # (Auto) 1.4 0.4-5.4 10 ^3/uL Monocytes # (Auto) 0.7 0-1.3 10 ^3/uL Eosinophils # (Auto) 0.4 0-0.8 10 ^3/uL Basophils # (Auto) 0.1 0-0.2 10 ^3/uL Nucleated Red Blood Cells 0.0 % Sodium Level 141 136-145 mmol/L Potassium Level 4.1 3.5-5.1 mmol/L Chloride Level 108 H 98-107 mmol/L Carbon Dioxide Level 23 20-31 mmol/L Anion Gap 10 5-15 Blood Urea Nitrogen 32 H 9-23 mg/dL Creatinine 1.86 H 0.700-1.30 mg/dL Glomerular Filtration Rate Calc 38 >90 mL/min BUN/Creatinine Ratio 17.2 10.0-20.0 Serum Glucose 98 74-106 mg/dL Calcium Level 9.2 8.7-10.4 mg/dL The patient's CBC and chemistry panel are within normal limits except for BUN of 32 and a creatinine of 1.86 The urine test is pending The patient is being admitted to the hospitalist An IV Hep-Lock was established. Images Reviewed?: Images reviewed and evaluated by me Time of 1ST Reevaluation: 20:13 Reevaluation 1ST: Unchanged Patient Education/Counseling: Diagnosis, Treatment, Prognosis Family Education/Counseling: No Family Present SEPSIS Sepsis Screen Physician Orders Urinalysis (05/05/25 18:48) Heplock Iv (05/05/25 18:48) Full Stack Engineer (05/05/25 18:48) Blood Pressure (05/05/25 18:48) Pulse Oximetry (05/05/25 18:48) Blood Culture (05/05/25 19:03) Lactic Acid W/ Reflex Order (05/05/25 19:03) Chest Portable (05/05/25 19:22) Vital Signs Date Time Temp Pulse Resp B/P (MAP) Pulse Ox O2 Delivery O2 Flow Rate FiO2 05/05/25 18:46 98.4 77 18 133/73 98 98.4 Laboratory Tests Test 05/05/25 19:21 05/05/25 19:39 White Blood Count 7.3 10^3/uL (4.4-10.8) Lactic Acid Level Pending Departure 1 Departure Time of Disposition: 20:13 Impression: Primary Impression: Altered mental status Qualified Codes: R41.82 - Altered mental status, unspecified Additional Impression: UTI (urinary tract infection) Qualified Codes: N30.00 - Acute cystitis without hematuria Disposition: ADMITTED INPATIENT Admit to: Med Surg Condition: Fair Critical Care Note Critical Care Time?: No Stability Stability form required: Yes Unstable for transfer: ED Physician Assesment (Clinical assesment) Heart Score Heart Score: Heart Score Response (Comments) Value History N/A 0 EKG N/A 0 Age N/A 0 Risk Factors N/A 0 Troponin N/A 0 Total 0 I personally scribed for GAVI FONSECA MD ([email or web address]) on 05/05/25 at 18:50. Electronically submitted by Rudy Garrison ([email or web address]). GAVI FONSECA MD May 05, 2025 18:50
[2025-05-05 19:33] LABS: Hematocrit 37.8 % (41.0-53.0); Hemoglobin 12.4 g/dL (13.5-17.5); Mean Corpuscular Hemoglobin 29.1 pg (28.0-32.0); Mean Corpuscular Volume 88.2 fL (80.0-100.0); Nucleated Red Blood Cells % 0.0 %
[2025-05-05 19:43] LABS: Anion Gap 10 (5-15); Carbon Dioxide 23 mmol/L (20-31); Potassium 4.1 mmol/L (3.5-5.1); Sodium 141 mmol/L (136-145)
[2025-05-05 19:44] LABS: Calcium 9.2 mg/dL (8.7-10.4)
[2025-05-05 19:49] LABS: BUN/Creatinine Ratio 17.2 (10.0-20.0); Blood Urea Nitrogen 32 mg/dL (9-23); Chloride 108 mmol/L (98-107); Glucose 98 mg/dL (74-106)
--- NOTE | 2025-05-05 20:33 | DVH ---
CHEST RADIOGRAPH Indication: fever Technique: Single frontal view of the chest was obtained Comparison: None FINDINGS: Lines and Tubes: None Lungs: No focal consolidation. Pleura: No effusion. No pneumothorax. Cardiomediastinal contours: Unremarkable Bones: No acute osseous abnormality. IMPRESSION: 1. No acute cardiopulmonary disease.
[2025-05-05] MEDS: SODIUM CHLORIDE 0.9% 500 ML IV ONE (21:04)
[2025-05-05] MEDS: ONDANSETRON HCL 4 MG/2 ML VIAL IV ONE (21:07)
[2025-05-05] MEDS ORDERED: DOCUSATE SOD 100 MG CAP PO PRN (21:45)
[2025-05-05] MEDS ORDERED: ACETAMINOPHEN 325 MG TAB PO PRN (21:45)
[2025-05-05] MEDS ORDERED: HYDROcodone-ACET 5/325MG TAB PO PRN (21:45)
[2025-05-05] MEDS ORDERED: DEXTROSE (50%) 50ML SYRG IV PRN (21:45)
[2025-05-05] MEDS ORDERED: ONDANSETRON HCL 4 MG/2 ML VIAL IV PRN (21:45)
[2025-05-05] MEDS: InsuLIN REG 1unit/0.01ml Soln (100units/ml) SC SCH (22:00)
[2025-05-05] MEDS: SODIUM CHLOR 0.9% PF (SALINE LOCK) 10ML VIAL/SYR IV SCH (22:21)
[2025-05-05] MEDS: ACCU-CHEK COMFORT CURVE STRIP VI SCH (22:26)
[2025-05-05] MEDS: FAMOTIDINE (10MG/ML) 2ML VL IV SCH (22:33)
[2025-05-05 23:05] VITALS: PULSE 77; RESP 16; O2SAT 98
--- NOTE | 2025-05-05 23:37 | DVHHP2 ---
History of Present Illness Reason for Visit: Acute cystitis without hematuria History of Present Illness The patient is a 75-year-old male paraplegic with multiple past medical history including dementia, DM, GERD, and hypertension presented to [facility] ED for evaluation of altered mental status. As reported by EMS, patient was diagnosed with UTIs earlier today, has been experiencing penile discharge with associated cloudy urine and poor appetite for the past few days, getting worse today that prompted this visit. Patient was seen and evaluated in the ED, laboratory data shows WBC 7.3, platelets 249, sodium 141, potassium 4.1, BUN 32, creatinine 1.86, GFR 38, glucose 98, calcium 9.2, blood pressure 134/72, heart rate 77, temperature 98.9 F, O2 saturation 98% on room air. Chest x-ray showed no acute cardiopulmonary disease. Please see medication orders section in the computer. On my assessment, patient denies chest pain, no headache, dizziness, diaphoresis, shortness of breaths, no abdominal pain, dysuria, hematuria, flank pain, nausea, vomiting, fever, chills. Patient was admitted for further evaluation and medical management. Past Medical History Dementia, DM, GERD, High Lipids, HTN, UTI'S, Paraplegic Past Surgical History Denies all surgeries Family History Reviewed, noncontributory to the management of this case. Past Social History The patient lives at assisted care living, denies smoking, alcohol or illicit drugs abuse. Review of Systems Constitutional: Yes: Weakness; No: Fever, Chills, Sweats, Malaise, Other Eyes: No: Pain, Vision change, Conjunctivae inflammation, Eyelid inflammation, Other, Redness ENT: No: Ear pain, Ear discharge, Nose pain, Nose discharge, Nose congestion, Mouth pain, Mouth swelling, Throat pain, Throat swelling, Other Respiratory: No: Cough, Dry, Shortness of breath, SOB with excertion, Wheezing, Hemoptysis, Pleuritic Pain, Sputum, Wheezing, Other Cardiovascular: No: Chest Pain, Palpitations, Orthopnea, Paroxysmal Noc. Dyspnea, Edema, Lt Headedness, Other Gastrointestinal: No: Nausea, Vomiting, Abdominal Pain, Diarrhea, Constipation, Melena, Hematochezia, Other Genitourinary: No Dysuria, No Frequency, No Incontinence, No Hematuria, No Retention; Other (Cloudy urine) Musculoskeletal: other (Paraplegic); No: neck pain, shoulder pain, arm pain, back pain, hand pain, leg pain, foot pain Skin: No: Rash, Lesions, Jaundice, Bruising, Other Neurological: Weakness; No: Numbness, Incoordination, Change in speech, Confusion, Seizures, Other Allergies: Coded Allergies: Penicillin G (Verified Allergy, Unknown, 09/01/15) Medications Current Medications Medications Dose Ordered Sig/Sheng Route Start Time Stop Time Status Last Admin Dose Admin Tamsulosin HCl 0.4 mg QPM PO 05/06/25 18:00 Famotidine 20 mg Q12HR IV 05/05/25 22:00 05/05/25 22:33 20 MG Diagnostic Test (Pha) 1 strip ACHS 05/05/25 22:00 05/05/25 22:26 1 STRIP Insulin Human Regular ACHS SC 05/05/25 22:00 Dextrose 50 ml UD PRN IV 05/05/25 21:45 Sodium Chloride 10 ml Q8HR IV 05/05/25 22:00 05/05/25 22:21 10 ML Acetaminophen/ Hydrocodone Bitart 1 tab Q4HP PRN PO 05/05/25 21:45 Ondansetron HCl 4 mg Q4HP PRN IV 05/05/25 21:45 Docusate Sodium 100 mg BIDPRN PRN PO 05/05/25 21:45 Acetaminophen 650 mg Q6HP PRN PO 05/05/25 21:45 Exam Vital Signs Vital Signs Date Time Temp Pulse Resp B/P (MAP) Pulse Ox O2 Delivery O2 Flow Rate FiO2 05/05/25 23:05 77 16 98 Room Air* 0 21 05/05/25 23:05 149/66 (93) 05/05/25 18:46 98.4 98.4 General Appearance: Alert, Oriented X3, Cooperative, No acute distress HEENT: Atraumatic, PERRLA, EOMI, Mucous membr. moist/pink Respiratory: Normal air movement Cardiovascular: Regular rate, Normal S1, Normal S2, No murmurs Abdominal: Normal bowel sounds, Soft, No tenderness, No hepatospenomegaly, No masses Extremities: No cyanosis, No edema, Normal pulses, Other (Paraplegic) Skin: No rashes, No significant lesion Neuro: Normal speech, Normal tone, Sensation intact, Other (Generalized w eakness) Psych/Mental Status: Mental status NL, Mood NL Labs/Xrays Labs Test 05/05/25 19:39 05/05/25 19:21 Range/Units Lactic Acid Level 1.0 0.4-2.0 mmol/L White Blood Count 7.3 4.4-10.8 10^3/uL Red Blood Count 4.28 L 4.5-5.90 10^6/uL Hemoglobin 12.4 L 13.5-17.5 g/dL Hematocrit 37.8 L 41.0-53.0 % Mean Corpuscular Volume 88.2 80.0-100.0 fL Mean Corpuscular Hemoglobin 29.1 28.0-32.0 pg Mean Corpuscular Hemoglobin Concent 33.0 32.0-36.0 g/dL Red Cell Distribution Width 15.8 H 11.8-14.3 % Platelet Count 249 140-450 10^3/uL Mean Platelet Volume 7.1 6.9-10.8 fL Neutrophils (%) (Auto) 65.9 37.0-80.0 % Lymphocytes (%) (Auto) 19.4 10.0-50.0 % Monocytes (%) (Auto) 9.0 0.0-12.0 % Eosinophils (%) (Auto) 4.9 0.0-7.0 % Basophils (%) (Auto) 0.8 0.0-2.0 % Neutrophils # (Auto) 4.8 1.6-8.6 10 ^3/uL Lymphocytes # (Auto) 1.4 0.4-5.4 10 ^3/uL Monocytes # (Auto) 0.7 0-1.3 10 ^3/uL Eosinophils # (Auto) 0.4 0-0.8 10 ^3/uL Basophils # (Auto) 0.1 0-0.2 10 ^3/uL Nucleated Red Blood Cells 0.0 % Sodium Level 141 136-145 mmol/L Potassium Level 4.1 3.5-5.1 mmol/L Chloride Level 108 H 98-107 mmol/L Carbon Dioxide Level 23 20-31 mmol/L Anion Gap 10 5-15 Blood Urea Nitrogen 32 H 9-23 mg/dL Creatinine 1.86 H 0.700-1.30 mg/dL Glomerular Filtration Rate Calc 38 >90 mL/min BUN/Creatinine Ratio 17.2 10.0-20.0 Serum Glucose 98 74-106 mg/dL Calcium Level 9.2 8.7-10.4 mg/dL PATIENT: KASSY MALAVE ACCT: [id number] UNIT: [id number] : 1950 LOC: ER ROOM / BED: / AGE / SEX: 75 / M ADM STATUS: REG ER SERVICE 21 ORDERING PHYSICIAN: GAVI FONSECA MD PROCEDURE(s): CXRP - CHEST PORTABLE REASON: fever ORDER NUMBER(s): [id number], ACCESSION NUMBER(s): [id number] CHEST RADIOGRAPH Indication: fever Technique: Single frontal view of the chest was obtained Comparison: None FINDINGS: Lines and Tubes: None Lungs: No focal consolidation. Pleura: No effusion. No pneumothorax. Cardiomediastinal contours: Unremarkable Bones: No acute osseous abnormality. IMPRESSION: 1. No acute cardiopulmonary disease. SEPSIS Sepsis Screen Date sepsis recognized/suspect: May 05, 2025 Time Sepsis recognized/suspect: 2307 Recent Procedure: No On Antibiotic Therapy: No Respiratory Rate >20: No Heart Rate >90: No Temp<36 C (96.8 F) or >38.3 C: No SBP <90 or MAP <65 mmHG: No New Acute Mental Status Change: No Is the patient on CPAP, BIPAP,: No Physician Orders Urinalysis (05/05/25 18:48) Heplock Iv (05/05/25 18:48) Personal Consultant (05/05/25 18:48) Blood Pressure (05/05/25 18:48) Pulse Oximetry (05/05/25 18:48) Blood Culture (05/05/25 19:03) Chest Portable (05/05/25 19:22) Urine Bacterial Culture (05/05/25 21:42) Tamsulosin Hydrochloride (Flomax) (05/06/25 18:00) Famotidine Injection (Pepcid Injection) (05/05/25 22:00) Consistent Carb(Ccho)Diabetes (05/06/25 Breakfast) *Dr. Gerard Nichols [facility] (05/05/25 21:42) Glucose Blood (Accu-Chek Comfort Curve T (05/05/25 22:00) Insulin R (Human) (Insulin R) (05/05/25 22:00) Dextrose 50% Syringe (05/05/25 21:45) Allergies (05/05/25 21:42) Code Status (05/05/25:42) Sodium Chloride Lock (Saline Lock Ns) (05/05/25 22:00) Oxygen Per Hour (05/05/25 21:42) Hydrocodone-Acet 5/325mg Tab ([place] 5/32 (05/05/25 21:45) Ondansetron Hcl (Zofran) (05/05/25 21:45) Docusate Sodium Capsule (Colace Capsule) (05/05/25 21:45) Complete Blood Count (05/06/25 04:00) Comprehensive Metabolic Panel (05/06/25 04:00) Condition: Serious (05/05/25 21:42) Acetaminophen Tablet (Tylenol Tablet) (05/05/25 21:45) Bedrest With Bathroom Privileg (05/05/25 21:42) Sequential Compression Device (05/05/25 ) Admit (05/05/25 23:35) Nitroglycerin Sublingual (Ntrostat Subli (05/05/25 23:45) Morphine Sulfate Injection (05/05/25 23:45) Stat Ekg For Chest Pain (05/05/25 23:35) Notify Md Of Changes From Base (05/05/25 23:35) Sas Bi Developer For 24 Hours (05/05/25 23:35) Emergency Dysrhythmia Protocol (05/05/25 23:35) Rhythm Strips Once Every Shift (05/05/25 23:35) Oxygen By Nasal Cannula (05/05/25 23:35) Vital Signs Date Time Temp Pulse Resp B/P (MAP) Pulse Ox O2 Delivery O2 Flow Rate FiO2 05/05/25 23:05 77 16 98 Room Air* 0 21 05/05/25 23:05 76 16 149/66 (93) 97 05/05/25 18:46 98.4 77 18 133/73 98 98.4 Laboratory Tests Test 05/05/25 19:21 05/05/25 19:39 White Blood Count 7.3 10^3/uL (4.4-10.8) Lactic Acid Level 1.0 mmol/L (0.4-2.0) Medications Medications Dose Ordered Sig/Sheng Route Start Time Stop Time Status Last Admin Dose Admin Diagnostic Test (Pha) 1 strip ACHS 05/05/25 22:00 05/05/25 22:26 1 STRIP Famotidine 20 mg Q12HR IV 05/05/25 22:00 05/05/25 22:33 20 MG Ondansetron HCl 4 mg ONCE ONCE IV 05/05/25 19:00 05/05/25 19:01 DC 05/05/25 21:07 4 MG Sodium Chloride 10 ml Q8HR IV 05/05/25 22:00 05/05/25 22:21 10 ML Sodium Chloride 500 ml @ 500 mls/hr Q1H ONCE IV 05/05/25 19:00 05/05/25 19:59 DC 05/05/25 21:04 500 MLS/HR Assessment/Plan Assessment/Plan Acute cystitis without hematuria Altered mental status UTI (urinary tract infection) Chronic kidney disease Generalized weakness Altered mental status, unspecified Plan 1. Admit to telemetry unit 2. Breathing treatment 3. Pain control management 4. IV antibiotic management 5. Management of fluids and electrolytes 6. Consultation for hospitalist 7. Diagnostic test chest x-ray 8. DVT prophylaxis-on SCDs 9. Repeat labs CBC, CMP in a.m. 10. Home medication reviewed and reconciled 11. Continue with current medical management 12. Treatment plan discussed with patient and RN. Patient verbalized understanding. Plan discussed with: Patient, Other (RN) My Orders Orders - TIANA ALEXANDER DNP Procedure Category Date Status Time Urine Bacterial ANGELA 05/05/25 Logged Culture 21:42 Tamsulosin PHA 05/06/25 In Process Hydrochloride (Flomax) 18:00 Famotidine Injection PHA 05/05/25 In Process (Pepcid Injection) 22:00 Consistent DIET 05/06/25 Transmitted Carb(Ccho)Diabetes Breakfast *[facility] CONS 05/05/25 Transmitted -[place] 21:42 Glucose Blood PHA 05/05/25 In Process (Accu-Chek Comfort 22:00 Insulin R (Human) PHA 05/05/25 In Process (Insulin R) 22:00 Dextrose 50% Syringe PHA 05/05/25 In Process 21:45 Allergies MARE 05/05/25 In Process 21:42 Code Status CODE 05/05/25 Transmitted 21:42 Sodium Chloride Lock PHA 05/05/25 In Process (Saline Lock Ns) 22:00 Oxygen Per Hour RT 05/05/25 Transmitted 21:42 Hydrocodone-Acet PHA 05/05/25 In Process 5/325mg Tab ([place] 21:45 Ondansetron Hcl PHA 05/05/25 In Process (Zofran) 21:45 Docusate Sodium PHA 05/05/25 In Process Capsule (Colace 21:45 Complete Blood Count LAB 05/06/25 Verified 04:00 Comprehensive LAB 05/06/25 Verified Metabolic Panel 04:00 Condition: Serious MARE 05/05/25 In Process 21:42 Acetaminophen Tablet PHA 05/05/25 In Process (Tylenol Tablet) 21:45 Bedrest With Bathroom MARE 05/05/25 In Process Privileg 21:42 Sequential MARE 05/05/25 In Process Compression Device Admit ADMIT 05/05/25 Transmitted 23:35 Nitroglycerin [facility] 05/05/25 Transmitted Sublingual (Ntrostat 23:45 Morphine Sulfate PHA 05/05/25 Transmitted Injection 23:45 Stat Ekg For Chest MARE 05/05/25 Transmitted Pain 23:35 Notify Md Of Changes [facility] 05/05/25 Transmitted From Base 23:35 Sas Bi Developer For [facility] 05/05/25 Transmitted 24 Hours 23:35 Emergency Dysrhythmia [facility] 05/05/25 Transmitted Protocol 23:35 Rhythm Strips Once [facility] 05/05/25 Transmitted Every Shift 23:35 Oxygen By Nasal RT 05/05/25 Transmitted Cannula 23:35 Problem List: (1) Acute cystitis without hematuria (2) Altered mental status (3) UTI (urinary tract infection) (4) Generalized weakness (5) Chronic kidney disease (6) Altered mental status, unspecified Date of Service: May 05, 2025 Billing Provider: TIANA ALEXANDER DNP Common Visit Codes: [id number] INP/OBS CARE (HIGH) TIANA ALEXANDER DNP May 05, 2025 23:37
[2025-05-05] MEDS ORDERED: MORPHINE SULFATE INJ 2 MG/ml SYRG IV PRN (23:45)
[2025-05-05] MEDS ORDERED: NITROGLYCERIN 0.4 MG SL TAB SL PRN (23:45)
[2025-05-06] VITALS (7 sets, daily range): BP systolic 124–156; BP diastolic 71–76; PULSE 69–80; RESP 13–18; TEMP 97.4–98; O2SAT 95–98
[2025-05-06] MEDS: CIPROFLOXACIN 400MG/200ML 200 ML IV SCH (05:04)
[2025-05-06] MEDS: CIPROFLOXACIN 400MG/200ML 200 ML IV ONE (05:04)
[2025-05-06 06:32] LABS: Urine Protein, UAD 2+ (Negative); Urine WBC Clumps PRESENT /hpf (None Seen)
[2025-05-06 06:55] LABS: Hematocrit 42.2 % (41.0-53.0); Hemoglobin 13.8 g/dL (13.5-17.5); Mean Corpuscular Hemoglobin 29.6 pg (28.0-32.0); Mean Corpuscular Volume 90.2 fL (80.0-100.0); Nucleated Red Blood Cells % 0.2 %
[2025-05-06 07:14] LABS: Alanine Aminotransferase 13 U/L (7-40); Albumin 4.0 g/dL (3.2-4.8); Anion Gap 11 (5-15); BUN/Creatinine Ratio 10.4 (10.0-20.0); Blood Urea Nitrogen 17 mg/dL (9-23); Calcium 9.5 mg/dL (8.7-10.4); Glucose 95 mg/dL (74-106); Potassium 4.5 mmol/L (3.5-5.1); Sodium 139 mmol/L (136-145); Total Protein 8.0 g/dL (5.7-8.2)
[2025-05-06 07:21] LABS: Alkaline Phosphatase 123 U/L (46-116); Carbon Dioxide 16 mmol/L (20-31); Chloride 112 mmol/L (98-107)
[2025-05-06 07:22] LABS: Bilirubin, Total 0.2 mg/dL (0.2-1.0)
[2025-05-06] MEDS ORDERED: CIPROFLOXACIN 400MG/200ML 200 ML IV SCH (10:00)
--- NOTE | 2025-05-06 15:18 | DVHPN2 ---
Changes from previous H/P or p: No Changes Eyes: No Pain, No Vision change, No Conjunctivae inflammation, No Eyelid inflammation, No Other, No Redness ENT: No Ear pain, No Ear discharge, No Nose pain, No Nose discharge, No Nose congestion, No Mouth pain, No Mouth swelling, No Throat pain, No Throat swelling, No Other Cardiovascular: No Chest Pain, No Palpitations, No Orthopnea, No Paroxysmal Noc. Dyspnea, No Edema, No Lt Headedness, No Other Respiratory: No Cough, No Dry, No Shortness of breath, No SOB with excertion, No Wheezing, No Hemoptysis, No Pleuritic Pain, No Sputum, No Other Gastrointestinal: No Nausea, No Vomiting, No Abdominal Pain, No Diarrhea, No Constipation, No Melena, No Hematochezia, No Other Genitourinary: No Dysuria, No Frequency, No Incontinence, No Hematuria, No Retention; Other (Cloudy urine) Musculoskeletal: other (Paraplegic); No neck pain, No shoulder pain, No arm pain, No back pain, No hand pain, No leg pain, No foot pain Skin: No Rash, No Lesions, No Jaundice, No Bruising, No Other Objective Vitals Vital Signs Date Time Temp Pulse Resp B/P (MAP) Pulse Ox O2 Delivery O2 Flow Rate FiO2 05/06/25 14:00 98.2 79 17 142/80 (100) 92 98.2 05/06/25 08:27 Room Air* 0 21 Medications Current Medications Medications Dose Ordered Sig/Sheng Route Start Time Stop Time Status Last Admin Dose Admin Tamsulosin HCl 0.4 mg QPM PO 05/06/25 18:00 Famotidine 20 mg Q12HR IV 05/05/25 22:00 05/06/25 10:23 20 MG Diagnostic Test (Pha) 1 strip ACHS 05/05/25 22:00 05/06/25 11:49 1 STRIP Insulin Human Regular ACHS SC 05/05/25 22:00 Dextrose 50 ml UD PRN IV 05/05/25 21:45 Sodium Chloride 10 ml Q8HR IV 05/05/25 22:00 05/06/25 14:07 10 ML Acetaminophen/ Hydrocodone Bitart 1 tab Q4HP PRN PO 05/05/25 21:45 Ondansetron HCl 4 mg Q4HP PRN IV 05/05/25 21:45 Docusate Sodium 100 mg BIDPRN PRN PO 05/05/25 21:45 Acetaminophen 650 mg Q6HP PRN PO 05/05/25 21:45 Nitroglycerin 0.4 mg Q5MINP PRN SL 05/05/25 23:45 Morphine Sulfate 2 mg Q30M PRN IV 05/05/25 23:45 Ciprofloxacin 200 ml @ 200 mls/hr Q12H IV 05/06/25 05:00 05/06/25 05:04 200 MLS/HR Laboratory Results Laboratory Tests 05/06/25 06:18 Chemistry Test 05/05/25 19:21 05/06/25 06:18 Calcium Level 9.2 mg/dL (8.7-10.4) 9.5 mg/dL (8.7-10.4) Albumin 4.0 g/dL (3.2-4.8) Total Protein 8.0 g/dL (5.7-8.2) LFT Test 05/06/25 06:18 Alanine Aminotransferase (ALT) 13 U/L (7-40) Alkaline Phosphatase 123 U/L (46-116) H Aspartate Amino Transferase (AST) 20 U/L (13-40) Total Bilirubin 0.2 mg/dL (0.2-1.0) Urinalysis Test 05/05/25 06:02 Urine Color Brown (Yellow) H Urine Clarity Ex.turbid (Clear) Urine pH 7.0 (5.0-9.0) Urine Specific [place] 1.013 (1.001-1.035) Urine Protein 2+ (Negative) H Urine Ketones Negative (Negative) Urine Blood 2+ /uL (Negative) H Urine Nitrite Negative (Negative) Urine Bilirubin Negative (Negative) Urine Urobilinogen Normal mg/dL (Negative) Urine Leukocyte Esterase 3+ /uL (Negative) Urine RBC 8 /hpf (0 - 3) Urine WBC Clumps Present /hpf (None Seen) Urine Microscopic WBC 200 /HPF (0-3) H Urine Squamous Epithelial Cells Few /hpf (<5) Urine Bacteria Few /hpf (None Seen) H Urine Glucose Normal mg/dL (Normal) Labs and/or images reviewed: Labs reviewed by me, Image(s) reviewed by me Assessment/Plan Assessment/Plan Sepsis secondary to urinary tract infection: Blood cultures urine cultures Cipro IV Paraplegia Dementia Diabetes Hypertension Hypercholesterolemia History of recurrent urinary tract infection GERD Time spent 67 minutes Advanced care planning time 20 minutes Patient is full code Plan discussed with: Patient Date of Service: May 06, 2025 Billing Provider: JASON KHAN MD Common Visit Codes: [id number] CARE 30-74 MIN JASON KHAN MD May 06, 2025 15:18
--- NOTE | 2025-05-06 16:43 | DVH ---
INDICATION: terry TECHNIQUE: Multiple real-time sonographic images of the kidneys and bladder were obtained. COMPARISON: None FINDINGS: RIGHT kidney measures 9.4 cm in length. Decreased cortical thickness on the right with increased romario ical echogenicity No hydronephrosis. LEFT kidney measures 10.7 cm in length. Normal cortical thickness with increased cortical echogenicit y. 3.5 x 2.8 x 2.9 cm anechoic nodule in the cortex of the left kidney. No hydronephrosis. No large intraluminal masses are seen in the bladder. Canseco catheter in place. No postvoid image of the bladder was received. IMPRESSION: 1. 9.4 cm long right kidney 10.7 cm long left kidney 2. Increased cortical echogenicity bilaterally. 3. Decreased right cortical thickness. 4. 3.5 x 2.8 x 2.9 cm left cortical cyst
[2025-05-06] MEDS: TAMSULOSIN HYDROCHLORIDE 0.4 MG CAP PO SCH (18:15)
[2025-05-07] VITALS (9 sets, daily range): BP systolic 130–146; BP diastolic 78–95; PULSE 72–83; RESP 17–19; TEMP 97.3–98.4; O2SAT 93–100
[2025-05-07 06:00] LABS: Anion Gap 11 (5-15); Hematocrit 38.5 % (41.0-53.0); Hemoglobin 12.5 g/dL (13.5-17.5); Mean Corpuscular Hemoglobin 29.0 pg (28.0-32.0); Mean Corpuscular Volume 89.4 fL (80.0-100.0); Nucleated Red Blood Cells % 0.1 %; Potassium 4.1 mmol/L (3.5-5.1); Sodium 138 mmol/L (136-145)
[2025-05-07 06:01] LABS: Calcium 9.0 mg/dL (8.7-10.4)
[2025-05-07 06:02] LABS: Carbon Dioxide 19 mmol/L (20-31); Chloride 108 mmol/L (98-107)
[2025-05-07 06:06] LABS: BUN/Creatinine Ratio 10.8 (10.0-20.0); Blood Urea Nitrogen 16 mg/dL (9-23); Glucose 102 mg/dL (74-106)
--- NOTE | 2025-05-07 09:56 | DVHPN2 ---
Reviewed: Care Plan Changes from previous H/P or p: No Changes Eyes: No Pain, No Vision change, No Conjunctivae inflammation, No Eyelid inflammation, No Other, No Redness ENT: No Ear pain, No Ear discharge, No Nose pain, No Nose discharge, No Nose congestion, No Mouth pain, No Mouth swelling, No Throat pain, No Throat swelling, No Other Cardiovascular: No Chest Pain, No Palpitations, No Orthopnea, No Paroxysmal Noc. Dyspnea, No Edema, No Lt Headedness, No Other Respiratory: No Cough, No Dry, No Shortness of breath, No SOB with excertion, No Wheezing, No Hemoptysis, No Pleuritic Pain, No Sputum, No Other Gastrointestinal: No Nausea, No Vomiting, No Abdominal Pain, No Diarrhea, No Constipation, No Melena, No Hematochezia, No Other Genitourinary: No Dysuria, No Frequency, No Incontinence, No Hematuria, No Retention; Other (Cloudy urine) Musculoskeletal: other (Paraplegic); No neck pain, No shoulder pain, No arm pain, No back pain, No hand pain, No leg pain, No foot pain Skin: No Rash, No Lesions, No Jaundice, No Bruising, No Other Objective Vitals Vital Signs Date Time Temp Pulse Resp B/P (MAP) Pulse Ox O2 Delivery O2 Flow Rate FiO2 05/07/25 09:32 97.3 76 19 143/81 (101) 96 97.3 05/07/25 07:56 Room Air* 0 21 Intake/Output Intake and Output 05/07/25 07:00 Intake Total 120 ml Output Total 1300 ml Balance -1180 ml Intake Oral 120 ml Output Urine Total 1300 ml Medications Current Medications Medications Dose Ordered Sig/Sheng Route Start Time Stop Time Status Last Admin Dose Admin Tamsulosin HCl 0.4 mg QPM PO 05/06/25 18:00 05/06/25 18:15 0.4 MG Famotidine 20 mg Q12HR IV 05/05/25 22:00 05/07/25 09:29 20 MG Diagnostic Test (Pha) 1 strip ACHS 05/05/25 22:00 05/07/25 06:22 1 STRIP Insulin Human Regular ACHS SC 05/05/25 22:00 Dextrose 50 ml UD PRN IV 05/05/25 21:45 Sodium Chloride 10 ml Q8HR IV 05/05/25 22:00 05/07/25 06:06 10 ML Acetaminophen/ Hydrocodone Bitart 1 tab Q4HP PRN PO 05/05/25 21:45 Ondansetron HCl 4 mg Q4HP PRN IV 05/05/25 21:45 Docusate Sodium 100 mg BIDPRN PRN PO 05/05/25 21:45 Acetaminophen 650 mg Q6HP PRN PO 05/05/25 21:45 Nitroglycerin 0.4 mg Q5MINP PRN SL 05/05/25 23:45 Morphine Sulfate 2 mg Q30M PRN IV 05/05/25 23:45 Ciprofloxacin 200 ml @ 200 mls/hr Q12H IV 05/06/25 05:00 05/07/25 04:49 200 MLS/HR Laboratory Results Laboratory Tests 05/07/25 05:09 Chemistry Test 05/07/25 05:09 Calcium Level 9.0 mg/dL (8.7-10.4) Urinalysis Test 05/05/25 06:02 Urine Color Brown (Yellow) H Urine Clarity Ex.turbid (Clear) Urine pH 7.0 (5.0-9.0) Urine Specific [place] 1.013 (1.001-1.035) Urine Protein 2+ (Negative) H Urine Ketones Negative (Negative) Urine Blood 2+ /uL (Negative) H Urine Nitrite Negative (Negative) Urine Bilirubin Negative (Negative) Urine Urobilinogen Normal mg/dL (Negative) Urine Leukocyte Esterase 3+ /uL (Negative) Urine RBC 8 /hpf (0 - 3) Urine WBC Clumps Present /hpf (None Seen) Urine Microscopic WBC 200 /HPF (0-3) H Urine Squamous Epithelial Cells Few /hpf (<5) Urine Bacteria Few /hpf (None Seen) H Urine Glucose Normal mg/dL (Normal) Microbiology Microbiology Date/Time Source Procedure Growth Status 05/05/25 19:39 Blood Blood Culture - Preliminary NO GROWTH AFTER 24 HOURS OF INCUBATION. Resulted 05/05/25 06:03 Voided Urine Urine Culture - Preliminary Resulted Labs and/or images reviewed: Labs reviewed by me, Image(s) reviewed by me Assessment/Plan Assessment/Plan Sepsis secondary to urinary tract infection: Blood cultures negative, urine cultures growing Gram-negative rods, continue Cipro IV Paraplegia Severe Dementia Diabetes Hypertension Hypercholesterolemia History of recurrent urinary tract infection GERD Time spent 67 minutes Advanced care planning time 20 minutes Patient is full code Patient came from [facility] Social service consult placed for living situation Plan discussed with: Patient My Orders Orders - JASON KHAN MD Procedure Category Date Status Time Mrsa Screen ANGELA 05/07/25 Uncollected 06:59 Date of Service: May 07, 2025 Billing Provider: JASON KHAN MD Common Visit Codes: [id number] CARE 30-74 MIN JASON KHAN MD May 07, 2025 09:56
[2025-05-07 10:54] LABS: Urine Protein, UAD 1+ (Negative); Urine WBC Clumps PRESENT /hpf (None Seen)
--- NOTE | 2025-05-07 11:58 | DVHINCON2 ---
Date of service: May 07, 2025 Referring Physician Piter Garay NP Reason for Consultation SAM History of Present Illness Mr. Hummel is a 75-year-old male with known history of paraplegia who presented for further evaluation and management of altered mental status. His clinical course has been notable for diagnosis of possible urinary tract infection, cystitis. He has been treated with intravenous fluids, IV antibiotics. He is seen in his room this morning, he is awake alert and cooperative. Current consultation requested due to elevated serum creatinine upon admission that has down trended with conservative therapy. Past Medical History Dementia, DM, GERD, High Lipids, HTN, UTI'S, Paraplegic Allergies: Coded Allergies: Penicillin G (Verified Allergy, Unknown, 09/01/15) Home Meds Active Scripts Doxycycline Monohydrate (Doxycycline Monohydrate) 100 Mg Cap, 1 CAP PO BID, #28 CAP Prov:BRONSON MELGAR MD 06/09/24 Reported Medications Paroxetine Hydrochloride (Paroxetine Hydrochloride) 40 Mg Tab, 1 TAB PO DAILY for 28 Days, #28 06/07/24 Clopidogrel Bisulfate (CLOPIDOGREL) 75 Mg Tab, 1 TAB PO DAILY for 28 Days, #28 05/28/24 Pantoprazole Sodium Sesquihydr (Pantoprazole Sodium) 40 Mg Tab, 1 TAB PO QAM for 28 Days, #28 05/28/24 Docusate Sodium (Docusate Sodium) 100 Mg Cap, 1 CAP PO QAM for 28 Days, #28 05/28/24 Atorvastatin Calcium (ATORVASTATIN CALCIUM) 20 Mg Tab, 1 TAB PO DAILY for 28 Days, #28 05/28/24 Doxazosin Mesylate (Doxazosin Mesylate) 4 Mg Tab, 1 TAB PO QAM for 28 Days, #28 05/28/24 Doxazosin Mesylate (Doxazosin Mesylate) 2 Mg Tab, 1 TAB PO QPM for 28 Days, #28 05/28/24 Current Medications Current Medications Medications (Trade) Dose Ordered Sig/Sheng Route PRN Reason Start Time Stop Time Status Last Admin Tamsulosin HCl (Flomax) 0.4 mg QPM PO 05/06/25 18:00 05/06/25 18:15 Family History: Cardiovascular disease G8 FATHER Diabetes mellitus G8 FATHER Review of Systems Limited due to cognitive dysfunction H&P Exam Vital Signs/I&O Vital Sign Date Time Temp Pulse Resp B/P (MAP) Pulse Ox O2 Delivery O2 Flow Rate FiO2 05/07/25 09:32 97.3 76 19 143/81 (101) 96 97.3 05/07/25 07:56 Room Air* 0 21 Intake and Output 05/06/25 05/07/25 19:00 07:00 Intake Total 0 ml 120 ml Output Total 550 ml 750 ml Balance -550 ml -630 ml Intake Oral 0 ml 120 ml Output Urine Total 550 ml 750 ml Physical Exam Gen: nad, chronically ill-appearing heent: nc/at, mmm lungs: cta anteriorly cvs: no rub abd: soft, bowel sounds audible ext: no edema skin: no rash neuro: Cooperative, moving upper extremities spontaneously Labs/Diagnostic Data Labs/Diagnostic Data Laboratory Tests Test 05/07/25 10:53 05/07/25 06:13 05/07/25 05:09 05/06/25 21:13 Range/Units POC Glucose 135 H 139 H 97 70-106 mg/dl White Blood Count 8.8 4.4-10.8 10^3/uL Red Blood Count 4.30 L 4.5-5.90 10^6/uL Hemoglobin 12.5 L 13.5-17.5 g/dL Hematocrit 38.5 L 41.0-53.0 % Mean Corpuscular Volume 89.4 80.0-100.0 fL Mean Corpuscular Hemoglobin 29.0 28.0-32.0 pg Mean Corpuscular Hemoglobin Concent 32.4 32.0-36.0 g/dL Red Cell Distribution Width 15.7 H 11.8-14.3 % Platelet Count 245 140-450 10^3/uL Mean Platelet Volume 7.0 6.9-10.8 fL Neutrophils (%) (Auto) 70.3 37.0-80.0 % Lymphocytes (%) (Auto) 17.5 10.0-50.0 % Monocytes (%) (Auto) 7.2 0.0-12.0 % Eosinophils (%) (Auto) 4.3 0.0-7.0 % Basophils (%) (Auto) 0.7 0.0-2.0 % Neutrophils # (Auto) 6.2 1.6-8.6 10 ^3/uL Lymphocytes # (Auto) 1.5 0.4-5.4 10 ^3/uL Monocytes # (Auto) 0.6 0-1.3 10 ^3/uL Eosinophils # (Auto) 0.4 0-0.8 10 ^3/uL Basophils # (Auto) 0.1 0-0.2 10 ^3/uL Nucleated Red Blood Cells 0.1 % Sodium Level 138 136-145 mmol/L Potassium Level 4.1 3.5-5.1 mmol/L Chloride Level 108 H 98-107 mmol/L Carbon Dioxide Level 19 L 20-31 mmol/L Anion Gap 11 5-15 Blood Urea Nitrogen 16 9-23 mg/dL Creatinine 1.48 H 0.700-1.30 mg/dL Glomerular Filtration Rate Calc 50 >90 mL/min BUN/Creatinine Ratio 10.8 10.0-20.0 Serum Glucose 102 74-106 mg/dL Calcium Level 9.0 8.7-10.4 mg/dL Test 05/06/25 17:41 05/06/25 11:49 05/06/25 09:45 05/06/25 06:33 Range/Units POC Glucose 101 102 98 70-106 mg/dl Urine Color Yellow Yellow Urine Clarity Turbid H Clear Urine pH 5.5 5.0-9.0 Urine Specific [place] 1.007 1.001-1.035 Urine Protein 1+ H Negative Urine Ketones Negative Negative Urine Blood 2+ H Negative /uL Urine Nitrite Negative Negative Urine Bilirubin Negative Negative Urine Urobilinogen Normal Negative mg/dL Urine Leukocyte Esterase 3+ Negative /uL Urine RBC 119 0 - 3 /hpf Urine WBC Clumps Present None Seen /hpf Urine Microscopic WBC 3557 H 0-3 /HPF Urine Squamous Epithelial Cells Mod <5 /hpf Urine Bacteria None seen None Seen /hpf Urine Mucus Few None Seen Urine Glucose Normal Normal mg/dL Test 05/06/25 06:18 05/05/25 19:39 05/05/25 19:21 05/05/25 06:02 Range/Units White Blood Count 7.5 7.3 4.4-10.8 10^3/uL Red Blood Count 4.68 4.28 L 4.5-5.90 10^6/uL Hemoglobin 13.8 12.4 L 13.5-17.5 g/dL Hematocrit 42.2 # 37.8 L 41.0-53.0 % Mean Corpuscular Volume 90.2 88.2 80.0-100.0 fL Mean Corpuscular Hemoglobin 29.6 29.1 28.0-32.0 pg Mean Corpuscular Hemoglobin Concent 32.8 33.0 32.0-36.0 g/dL Red Cell Distribution Width 15.9 H 15.8 H 11.8-14.3 % Platelet Count 219 249 140-450 10^3/uL Mean Platelet Volume 7.0 7.1 6.9-10.8 fL Neutrophils (%) (Auto) 64.9 65.9 37.0-80.0 % Lymphocytes (%) (Auto) 20.6 19.4 10.0-50.0 % Monocytes (%) (Auto) 9.4 9.0 0.0-12.0 % Eosinophils (%) (Auto) 4.5 4.9 0.0-7.0 % Basophils (%) (Auto) 0.6 0.8 0.0-2.0 % Neutrophils # (Auto) 4.9 4.8 1.6-8.6 10 ^3/uL Lymphocytes # (Auto) 1.6 1.4 0.4-5.4 10 ^3/uL Monocytes # (Auto) 0.7 0.7 0-1.3 10 ^3/uL Eosinophils # (Auto) 0.3 0.4 0-0.8 10 ^3/uL Basophils # (Auto) 0 0.1 0-0.2 10 ^3/uL Nucleated Red Blood Cells 0.2 0.0 % Sodium Level 139 141 136-145 mmol/L Potassium Level 4.5 4.1 3.5-5.1 mmol/L Chloride Level 112 H 108 H 98-107 mmol/L Carbon Dioxide Level 16 L 23 20-31 mmol/L Anion Gap 11 10 5-15 Blood Urea Nitrogen 17 # 32 H 9-23 mg/dL Creatinine 1.64 H 1.86 H 0.700-1.30 mg/dL Glomerular Filtration Rate Calc 44 38 >90 mL/min BUN/Creatinine Ratio 10.4 17.2 10.0-20.0 Serum Glucose 95 98 74-106 mg/dL Calcium Level 9.5 9.2 8.7-10.4 mg/dL Total Bilirubin 0.2 0.2-1.0 mg/dL Aspartate Amino Transferase (AST) 20 13-40 U/L Alanine Aminotransferase (ALT) 13 7-40 U/L Alkaline Phosphatase 123 H 46-116 U/L Total Protein 8.0 5.7-8.2 g/dL Albumin 4.0 3.2-4.8 g/dL Lactic Acid Level 1.0 0.4-2.0 mmol/L Urine Color Brown H Yellow Urine Clarity Ex.turbid Clear Urine pH 7.0 5.0-9.0 Urine Specific [place] 1.013 1.001-1.035 Urine Protein 2+ H Negative Urine Ketones Negative Negative Urine Blood 2+ H Negative /uL Urine Nitrite Negative Negative Urine Bilirubin Negative Negative Urine Urobilinogen Normal Negative mg/dL Urine Leukocyte Esterase 3+ Negative /uL Urine RBC 8 0 - 3 /hpf Urine WBC Clumps Present None Seen /hpf Urine Microscopic WBC 200 H 0-3 /HPF Urine Squamous Epithelial Cells Few <5 /hpf Urine Bacteria Few H None Seen /hpf Urine Glucose Normal Normal mg/dL Assessment IMP: 1) Hemodynamically mediated SAM/VMN, prerenal state 2) CKD stage IIIA 3) cystitis 4) toxic metabolic encephalopathy 5) history of paraplegia REC: - Mr. Hummel has demonstrated significant improvement in kidney function with conservative means - noted urine culture still pending. - patient is clinically stable for discharge from Nephrology perspective. Plan discussed with: Other HARRIS DIAL MD May 07, 2025 11:58
[2025-05-08] VITALS (8 sets, daily range): BP systolic 120–150; BP diastolic 70–83; PULSE 78–85; RESP 16–19; TEMP 97.7–98.7; O2SAT 91–96
[2025-05-08 06:26] LABS: Anion Gap 9 (5-15); Carbon Dioxide 22 mmol/L (20-31); Potassium 3.7 mmol/L (3.5-5.1); Sodium 140 mmol/L (136-145)
[2025-05-08 06:27] LABS: Chloride 109 mmol/L (98-107)
[2025-05-08 06:28] LABS: Calcium 8.9 mg/dL (8.7-10.4)
[2025-05-08 06:32] LABS: BUN/Creatinine Ratio 14.5 (10.0-20.0)
[2025-05-08 06:37] LABS: Blood Urea Nitrogen 23 mg/dL (9-23); Glucose 126 mg/dL (74-106)
--- NOTE | 2025-05-08 08:41 | DVHPN2 ---
Reviewed: Care Plan Changes from previous H/P or p: No Changes Eyes: No Pain, No Vision change, No Conjunctivae inflammation, No Eyelid inflammation, No Other, No Redness ENT: No Ear pain, No Ear discharge, No Nose pain, No Nose discharge, No Nose congestion, No Mouth pain, No Mouth swelling, No Throat pain, No Throat swelling, No Other Cardiovascular: No Chest Pain, No Palpitations, No Orthopnea, No Paroxysmal Noc. Dyspnea, No Edema, No Lt Headedness, No Other Respiratory: No Cough, No Dry, No Shortness of breath, No SOB with excertion, No Wheezing, No Hemoptysis, No Pleuritic Pain, No Sputum, No Other Gastrointestinal: No Nausea, No Vomiting, No Abdominal Pain, No Diarrhea, No Constipation, No Melena, No Hematochezia, No Other Genitourinary: No Dysuria, No Frequency, No Incontinence, No Hematuria, No Retention; Other (Cloudy urine) Musculoskeletal: other (Paraplegic); No neck pain, No shoulder pain, No arm pain, No back pain, No hand pain, No leg pain, No foot pain Skin: No Rash, No Lesions, No Jaundice, No Bruising, No Other Objective Vitals Vital Signs Date Time Temp Pulse Resp B/P (MAP) Pulse Ox O2 Delivery O2 Flow Rate FiO2 05/08/25 05:00 98.2 82 17 132/77 (95) 91 98.2 05/07/25 20:30 Room Air* 0 21 Intake/Output Intake and Output 05/08/25 07:00 Intake Total 1125 ml Output Total 1750 ml Balance -625 ml Intake Oral 925 ml IV Total 200 ml Output Urine Total 1750 ml # Bowel Movements 1 Medications Current Medications Medications Dose Ordered Sig/Sheng Route Start Time Stop Time Status Last Admin Dose Admin Tamsulosin HCl 0.4 mg QPM PO 05/06/25 18:00 05/07/25 17:16 0.4 MG Famotidine 20 mg Q12HR IV 05/05/25 22:00 05/07/25 23:39 20 MG Diagnostic Test (Pha) 1 strip ACHS 05/05/25 22:00 05/08/25 06:27 1 STRIP Insulin Human Regular ACHS SC 05/05/25 22:00 05/07/25 11:02 2 UNITS Dextrose 50 ml UD PRN IV 05/05/25 21:45 Sodium Chloride 10 ml Q8HR IV 05/05/25 22:00 05/08/25 05:54 10 ML Acetaminophen/ Hydrocodone Bitart 1 tab Q4HP PRN PO 05/05/25 21:45 Ondansetron HCl 4 mg Q4HP PRN IV 05/05/25 21:45 Docusate Sodium 100 mg BIDPRN PRN PO 05/05/25 21:45 Acetaminophen 650 mg Q6HP PRN PO 05/05/25 21:45 Nitroglycerin 0.4 mg Q5MINP PRN SL 05/05/25 23:45 Morphine Sulfate 2 mg Q30M PRN IV 05/05/25 23:45 Ciprofloxacin 200 ml @ 200 mls/hr Q12H IV 05/06/25 05:00 05/08/25 04:43 200 MLS/HR Laboratory Results Laboratory Tests 05/07/25 05:09 05/08/25 05:08 Chemistry Test 05/08/25 05:08 Calcium Level 8.9 mg/dL (8.7-10.4) Urinalysis Test 05/06/25 09:45 Urine Color Yellow (Yellow) Urine Clarity Turbid (Clear) H Urine pH 5.5 (5.0-9.0) Urine Specific [place] 1.007 (1.001-1.035) Urine Protein 1+ (Negative) H Urine Ketones Negative (Negative) Urine Blood 2+ /uL (Negative) H Urine Nitrite Negative (Negative) Urine Bilirubin Negative (Negative) Urine Urobilinogen Normal mg/dL (Negative) Urine Leukocyte Esterase 3+ /uL (Negative) Urine RBC 119 /hpf (0 - 3) Urine WBC Clumps Present /hpf (None Seen) Urine Microscopic WBC 3557 /HPF (0-3) H Urine Squamous Epithelial Cells Mod /hpf (<5) Urine Bacteria None seen /hpf (None Seen) Urine Mucus Few (None Seen) Urine Glucose Normal mg/dL (Normal) Microbiology Microbiology Date/Time Source Procedure Growth Status 05/05/25 19:39 Blood Blood Culture - Preliminary NO GROWTH AFTER 48 HOURS OF INCUBATION. Resulted 05/05/25 06:03 Voided Urine Urine Culture - Preliminary Resulted Labs and/or images reviewed: Labs reviewed by me, Image(s) reviewed by me Assessment/Plan Assessment/Plan Sepsis secondary to urinary tract infection: Blood cultures negative, urine cultures growing Gram-negative rods, continue Cipro IV Paraplegia Severe Dementia Diabetes Hypertension Hypercholesterolemia History of recurrent urinary tract infection GERD Time spent 57 minutes Advanced care planning time 20 minutes Patient is full code Patient came from [facility] Han Blake [phone], who claims she knows the patient's since 1977 is at bedside. Patient has no family per Lou. Plan discussed with: Patient My Orders Orders - JASON KHAN MD Procedure Category Date Status Time Mrsa Screen ANGELA 05/07/25 In Process 06:59 * Sales And Marketing Agent CONS 05/07/25 Transmitted Consult Consistent DIET 05/07/25 Transmitted Carb(Ccho)Diabetes Lunch Dietary NOTICE 05/08/25 Transmitted Recommendations 08:06 Date of Service: May 08, 2025 Billing Provider: JASON KHAN MD Common Visit Codes: [id number] INP/OBS CARE(HIGH) JASON KHAN MD May 08, 2025 08:41
--- NOTE | 2025-05-08 16:04 | DVHPN2 ---
Progress Note - Dictate Date Seen: May 08, 2025 Medical Necessity Reason Pt with a Central, PICC or Fol: No Subjective Awake, responsive vital signs Vital Sign Date Time Temp Pulse Resp B/P (MAP) Pulse Ox O2 Delivery O2 Flow Rate FiO2 05/08/25 14:34 98.6 83 19 134/74 (94) 95 98.6 05/08/25 08:00 Room Air* 0 21 Total Intake and Output 05/07/25 05/07/25 05/08/25 15:00 23:00 07:00 Intake Total 525 ml 600 ml Output Total 1100 ml 650 ml Balance -575 ml -50 ml medications Current Medications Medications Dose Ordered Sig/Sheng Route Start Time Stop Time Status Last Admin Dose Admin Tamsulosin HCl 0.4 mg QPM PO 05/06/25 18:00 05/07/25 17:16 0.4 MG Famotidine 20 mg Q12HR IV 05/05/25 22:00 05/08/25 09:35 20 MG Diagnostic Test (Pha) 1 strip ACHS 05/05/25 22:00 05/08/25 11:30 1 STRIP Insulin Human Regular ACHS SC 05/05/25 22:00 05/08/25 12:05 2 UNITS Dextrose 50 ml UD PRN IV 05/05/25 21:45 Sodium Chloride 10 ml Q8HR IV 05/05/25 22:00 05/08/25 13:43 10 ML Acetaminophen/ Hydrocodone Bitart 1 tab Q4HP PRN PO 05/05/25 21:45 Ondansetron HCl 4 mg Q4HP PRN IV 05/05/25 21:45 Docusate Sodium 100 mg BIDPRN PRN PO 05/05/25 21:45 Acetaminophen 650 mg Q6HP PRN PO 05/05/25 21:45 Nitroglycerin 0.4 mg Q5MINP PRN SL 05/05/25 23:45 Morphine Sulfate 2 mg Q30M PRN IV 05/05/25 23:45 Ciprofloxacin 200 ml @ 200 mls/hr Q12H IV 05/06/25 05:00 05/08/25 04:43 200 MLS/HR objective Gen: nad heent: nc/at, mmm lungs: cta anteriorly cvs: no rub ext: no edema skin: no rash neuro: Responsive laboratory and microbiology Laboratory Tests 05/08/25 05:08 05/07/25 05:09 Test 05/08/25 05:08 Range/Units Serum Glucose 126 H 74-106 mg/dL Assessment/Plan IMP: 1) Hemodynamically mediated SAM/VMN, prerenal state 2) CKD stage IIIA 3) cystitis secondary to Gram-negative rods 4) toxic metabolic encephalopathy 5) history of paraplegia REC: - essentially stable GFR, - even fluid balance - we will continue to follow Dietary Evaluation Review Comments: 1) Add cardiac restriction to 60g CCHO mechanical soft diet 2) Encourage optimal PO intake 3) Follow-up with cardiology, nephrology, urology, and neurology 4) Continue to monitor I&O, labs, and skin integrity Expected Outcomes/Goals: 1) appetite and labs to improve 2) f/u in 3-5 days Plan discussed with: Patient HARRIS DIAL MD May 08, 2025 16:04
[2025-05-09] VITALS (8 sets, daily range): BP systolic 115–160; BP diastolic 59–87; PULSE 69–82; RESP 15–22; TEMP 98–98.7; O2SAT 90–100
--- NOTE | 2025-05-09 09:35 | DVHPN2 ---
Reviewed: Care Plan Changes from previous H/P or p: No Changes Eyes: No Pain, No Vision change, No Conjunctivae inflammation, No Eyelid inflammation, No Other, No Redness ENT: No Ear pain, No Ear discharge, No Nose pain, No Nose discharge, No Nose congestion, No Mouth pain, No Mouth swelling, No Throat pain, No Throat swelling, No Other Cardiovascular: No Chest Pain, No Palpitations, No Orthopnea, No Paroxysmal Noc. Dyspnea, No Edema, No Lt Headedness, No Other Respiratory: No Cough, No Dry, No Shortness of breath, No SOB with excertion, No Wheezing, No Hemoptysis, No Pleuritic Pain, No Sputum, No Other Gastrointestinal: No Nausea, No Vomiting, No Abdominal Pain, No Diarrhea, No Constipation, No Melena, No Hematochezia, No Other Genitourinary: No Dysuria, No Frequency, No Incontinence, No Hematuria, No Retention; Other (Cloudy urine) Musculoskeletal: other (Paraplegic); No neck pain, No shoulder pain, No arm pain, No back pain, No hand pain, No leg pain, No foot pain Skin: No Rash, No Lesions, No Jaundice, No Bruising, No Other Objective Vitals Vital Signs Date Time Temp Pulse Resp B/P (MAP) Pulse Ox O2 Delivery O2 Flow Rate FiO2 05/09/25 08:57 98.5 82 22 119/77 (91) 90 98.5 05/08/25 20:00 Room Air* 0 21 Intake/Output Intake and Output 05/09/25 07:00 Intake Total 1625 ml Output Total 1800 ml Balance -175 ml Intake Oral 1225 ml IV Total 400 ml Output Urine Total 1800 ml # Bowel Movements 1 Medications Current Medications Medications Dose Ordered Sig/Sheng Route Start Time Stop Time Status Last Admin Dose Admin Tamsulosin HCl 0.4 mg QPM PO 05/06/25 18:00 05/08/25 17:12 0.4 MG Famotidine 20 mg Q12HR IV 05/05/25 22:00 05/08/25 22:13 20 MG Diagnostic Test (Pha) 1 strip ACHS 05/05/25 22:00 05/09/25 07:21 1 STRIP Insulin Human Regular ACHS SC 05/05/25 22:00 05/08/25 12:05 2 UNITS Dextrose 50 ml UD PRN IV 05/05/25 21:45 Sodium Chloride 10 ml Q8HR IV 05/05/25 22:00 05/09/25 06:10 10 ML Acetaminophen/ Hydrocodone Bitart 1 tab Q4HP PRN PO 05/05/25 21:45 Ondansetron HCl 4 mg Q4HP PRN IV 05/05/25 21:45 Docusate Sodium 100 mg BIDPRN PRN PO 05/05/25 21:45 Acetaminophen 650 mg Q6HP PRN PO 05/05/25 21:45 Nitroglycerin 0.4 mg Q5MINP PRN SL 05/05/25 23:45 Morphine Sulfate 2 mg Q30M PRN IV 05/05/25 23:45 Ciprofloxacin 200 ml @ 200 mls/hr Q12H IV 05/06/25 05:00 05/09/25 04:40 200 MLS/HR Laboratory Results Laboratory Tests 05/07/25 05:09 05/08/25 05:08 Urinalysis Test 05/06/25 09:45 Urine Color Yellow (Yellow) Urine Clarity Turbid (Clear) H Urine pH 5.5 (5.0-9.0) Urine Specific [place] 1.007 (1.001-1.035) Urine Protein 1+ (Negative) H Urine Ketones Negative (Negative) Urine Blood 2+ /uL (Negative) H Urine Nitrite Negative (Negative) Urine Bilirubin Negative (Negative) Urine Urobilinogen Normal mg/dL (Negative) Urine Leukocyte Esterase 3+ /uL (Negative) Urine RBC 119 /hpf (0 - 3) Urine WBC Clumps Present /hpf (None Seen) Urine Microscopic WBC 3557 /HPF (0-3) H Urine Squamous Epithelial Cells Mod /hpf (<5) Urine Bacteria None seen /hpf (None Seen) Urine Mucus Few (None Seen) Urine Glucose Normal mg/dL (Normal) Microbiology Microbiology Date/Time Source Procedure Growth Status 05/07/25 09:45 Nose MRSA Screen - Final Complete 05/05/25 19:39 Blood Blood Culture - Preliminary NO GROWTH AFTER 72 HOURS OF INCUBATION. Resulted 05/05/25 06:03 Voided Urine Urine Culture - Final Proteus mirabilis Complete Labs and/or images reviewed: Labs reviewed by me, Image(s) reviewed by me Assessment/Plan Assessment/Plan Sepsis secondary to urinary tract infection: Blood cultures negative, urine cultures growing Proteus mirabilis, Rocephin 1 g IV daily for two weeks Paraplegia Severe Dementia Diabetes Hypertension Hypercholesterolemia History of recurrent urinary tract infection GERD Time spent 58 minutes Advanced care planning time 20 minutes Patient is full code Patient came from [facility] Han Blake [phone], who claims she knows the patient's since 1977 is at bedside. Patient has no family per Lou. Patient is discharged to half-way facility for IV antibiotics for two weeks . Discussed with SHELBY Blake, Plan discussed with: Patient My Orders Orders - JASON KHAN MD Procedure Category Date Status Time Pt Request For Service PT 05/08/25 Logged 09:50 * Transcription Typist CONS 05/09/25 Transmitted Consult Date of Service: May 09, 2025 Billing Provider: JASON KHAN MD Common Visit Codes: [id number] INP/OBS CARE(HIGH) JASON KHAN MD May 09, 2025 09:35
--- NOTE | 2025-05-09 09:42 | DVHDS2 ---
Discharge Summary Date of Admission May 05, 2025 at 23:35 Date of Discharge: May 09, 2025 Admitting Diagnosis Altered mental status Wounds: None Labs/Diagnostic Data: Laboratory Results Test 05/09/25 06:06 05/08/25 05:08 05/07/25 05:09 05/06/25 09:45 POC Glucose 121 mg/dl (70-106) Sodium Level 140 mmol/L (136-145) Potassium Level 3.7 mmol/L (3.5-5.1) Chloride Level 109 mmol/L (98-107) Carbon Dioxide Level 22 mmol/L (20-31) Anion Gap 9 (5-15) Blood Urea Nitrogen 23 mg/dL (9-23) Creatinine 1.59 mg/dL (0.700-1.30) Glomerular Filtration Rate Calc 46 mL/min (>90) BUN/Creatinine Ratio 14.5 (10.0-20.0) Serum Glucose 126 mg/dL (74-106) Calcium Level 8.9 mg/dL (8.7-10.4) White Blood Count 8.8 10^3/uL (4.4-10.8) Red Blood Count 4.30 10^6/uL (4.5-5.90) Hemoglobin 12.5 g/dL (13.5-17.5) Hematocrit 38.5 % (41.0-53.0) Mean Corpuscular Volume 89.4 fL (80.0-100.0) Mean Corpuscular Hemoglobin 29.0 pg (28.0-32.0) Mean Corpuscular Hemoglobin Concent 32.4 g/dL (32.0-36.0) Red Cell Distribution Width 15.7 % (11.8-14.3) Platelet Count 245 10^3/uL (140-450) Mean Platelet Volume 7.0 fL (6.9-10.8) Neutrophils (%) (Auto) 70.3 % (37.0-80.0) Lymphocytes (%) (Auto) 17.5 % (10.0-50.0) Monocytes (%) (Auto) 7.2 % (0.0-12.0) Eosinophils (%) (Auto) 4.3 % (0.0-7.0) Basophils (%) (Auto) 0.7 % (0.0-2.0) Neutrophils # (Auto) 6.2 10 ^3/uL (1.6-8.6) Lymphocytes # (Auto) 1.5 10 ^3/uL (0.4-5.4) Monocytes # (Auto) 0.6 10 ^3/uL (0-1.3) Eosinophils # (Auto) 0.4 10 ^3/uL (0-0.8) Basophils # (Auto) 0.1 10 ^3/uL (0-0.2) Nucleated Red Blood Cells 0.1 % Urine Color Yellow (Yellow) Urine Clarity Turbid (Clear) Urine pH 5.5 (5.0-9.0) Urine Specific [place] 1.007 (1.001-1.035) Urine Protein 1+ (Negative) Urine Ketones Negative (Negative) Urine Blood 2+ /uL (Negative) Urine Nitrite Negative (Negative) Urine Bilirubin Negative (Negative) Urine Urobilinogen Normal mg/dL (Negative) Urine Leukocyte Esterase 3+ /uL (Negative) Urine RBC 119 /hpf (0 - 3) Urine WBC Clumps Present /hpf (None Seen) Urine Microscopic WBC 3557 /HPF (0-3) Urine Squamous Epithelial Cells Mod /hpf (<5) Urine Bacteria None seen /hpf (None Seen) Urine Mucus Few (None Seen) Urine Glucose Normal mg/dL (Normal) Test 05/06/25 06:18 05/05/25 19:39 Total Bilirubin 0.2 mg/dL (0.2-1.0) Aspartate Amino Transferase (AST) 20 U/L (13-40) Alanine Aminotransferase (ALT) 13 U/L (7-40) Alkaline Phosphatase 123 U/L (46-116) Total Protein 8.0 g/dL (5.7-8.2) Albumin 4.0 g/dL (3.2-4.8) Lactic Acid Level 1.0 mmol/L (0.4-2.0) Other Laboratory Tests 05/08/25 05:08 05/07/25 05:09 Brief Hx & Hospital Course: 75-year-old male with a history of hypertension diabetes cholesterol severe dementia paraplegic recurrent urinary tract infection GERD stays in board and care admitted for altered mental status and confusion found to have sepsis secondary to urinary tract infection. Urine grew Proteus mirabilis started on Rocephin 1 g IV daily which he will receive for two more weeks in the care home facility discussed the plan of care with the patient's power of commercial real estate attorney Lou [phone] who is at the bedside. general condition poor but stable at the time of discharge. Consults/Reason for consult None Operations or Procedures None Condition at Discharge: Fair Final Diagnosis/Problems List Sepsis secondary to urinary tract infection: Blood cultures negative, urine cultures growing Proteus mirabilis, Rocephin 1 g IV daily for two weeks Paraplegia Severe Dementia Diabetes Hypertension Hypercholesterolemia History of recurrent urinary tract infection GERD Discharge Disposition: Senior Care Facility Discharge Instruct/Medications Diet: Cardiac 2g Na,low cholest Activity: Light activity Follow Up/Referral: Follow up with the long term Dr Medications: Rocephin 1 g IV daily for two weeks Scheduled Atorvastatin Calcium (Atorvastatin Calcium), 1 TAB PO DAILY, (Reported) Clopidogrel Bisulfate (Clopidogrel), 1 TAB PO DAILY, (Reported) Docusate Sodium (Docusate Sodium), 1 CAP PO QAM, (Reported) Doxazosin Mesylate (Doxazosin Mesylate), 1 TAB PO QPM, (Reported) Doxazosin Mesylate (Doxazosin Mesylate), 1 TAB PO QAM, (Reported) Doxycycline Monohydrate (Doxycycline Monohydrate), 1 CAP PO BID Pantoprazole Sodium Sesquihydr (Pantoprazole Sodium), 1 TAB PO QAM, (Reported) Paroxetine Hydrochloride (Paroxetine Hydrochloride), 1 TAB PO DAILY, (Reported) 39 (Time taken for discharge summary 39 mts) Discharge Statement: "Patient was advised to return to the ER or call 911 if any headaches, dizziness, shortness of breath, chest pain, abdominal pain, bleeding, fevers, or worsening of medical condition. Patient was counseled about treatment plan, medications, possible side effects, patientverbalized understanding. All questions were answered to the best of my ability. This discharge took greater then 30 minutes in planning, reviewing documentation, counseling the patient, and discussing with other team members." ASSESSMENT ASSESSMENT Hospital Course Uneventful Assessment Sepsis secondary to urinary tract infection: Blood cultures negative, urine cultures growing Proteus mirabilis, Rocephin 1 g IV daily for two weeks Paraplegia Severe Dementia Diabetes Hypertension Hypercholesterolemia History of recurrent urinary tract infection GERD Date of Service: May 09, 2025 Billing Provider: JASON KHAN MD Common Visit Codes: [id number] DISCH DAY >30min JASON KHAN MD May 09, 2025 09:42
--- NOTE | 2025-05-09 15:21 | DVHPN2 ---
Progress Note Date Seen: May 09, 2025 Medical Necessity Reason Pt with a Central, PICC or Fol: Yes The following are medically ne: Canseco Catheter Objective vital signs Vital Sign Date Time Temp Pulse Resp B/P (MAP) Pulse Ox O2 Delivery O2 Flow Rate FiO2 05/09/25 12:26 98.7 74 20 131/86 (101) 100 98.7 05/09/25 08:00 Room Air* 0 21 Total Intake and Output 05/08/25 05/08/25 05/09/25 15:00 23:00 07:00 Intake Total 825 ml 800 ml Output Total 600 ml 1200 ml Balance 225 ml -400 ml medications Current Medications Medications Dose Ordered Sig/Sheng Route Start Time Stop Time Status Last Admin Dose Admin Tamsulosin HCl 0.4 mg QPM PO 05/06/25 18:00 05/08/25 17:12 0.4 MG Famotidine 20 mg Q12HR IV 05/05/25 22:00 05/09/25 09:37 20 MG Diagnostic Test (Pha) 1 strip ACHS 05/05/25 22:00 05/09/25 11:08 1 STRIP Insulin Human Regular ACHS SC 05/05/25 22:00 05/08/25 12:05 2 UNITS Dextrose 50 ml UD PRN IV 05/05/25 21:45 Sodium Chloride 10 ml Q8HR IV 05/05/25 22:00 05/09/25 13:40 10 ML Acetaminophen/ Hydrocodone Bitart 1 tab Q4HP PRN PO 05/05/25 21:45 Ondansetron HCl 4 mg Q4HP PRN IV 05/05/25 21:45 Docusate Sodium 100 mg BIDPRN PRN PO 05/05/25 21:45 Acetaminophen 650 mg Q6HP PRN PO 05/05/25 21:45 Nitroglycerin 0.4 mg Q5MINP PRN SL 05/05/25 23:45 Morphine Sulfate 2 mg Q30M PRN IV 05/05/25 23:45 Ceftriaxone Sodium 50 ml @ 100 mls/hr DAILY@09 IV 05/10/25 09:00 Examination: GENERAL:Abnormal, CVS:Normal, SKIN:Abnormal laboratory and microbiology Laboratory Tests 05/08/25 05:08 05/07/25 05:09 Test 05/08/25 05:08 Range/Units Serum Glucose 126 H 74-106 mg/dL Microbiology Date/Time Source Procedure Growth Status 05/07/25 09:45 Nose MRSA Screen - Final Complete 05/05/25 19:39 Blood Blood Culture - Preliminary NO GROWTH AFTER 72 HOURS OF INCUBATION. Resulted 05/05/25 06:03 Voided Urine Urine Culture - Final Proteus mirabilis Complete Problem List/Assessment/Plan Problem List/Assessment/Plan 1) Hemodynamically mediated SAM/VMN, prerenal state 2) CKD stage IIIA 3) cystitis secondary to Gram-negative rods 4) toxic metabolic encephalopathy 5) history of paraplegia rec trial of void IV hydration until DC obtain labs today ABX per primary team rest of care per primary team Plan discussed with: Patient My Orders My Orders Orders - ROSAMARIA LASSITER MD Procedure Category Date Status Time Basic Metabolic Panel LAB 05/09/25 Verified 15:15 Basic Metabolic Panel LAB 05/10/25 Verified 04:00 Dietary Evaluation Review Comments: 1) Add cardiac restriction to 60g CCHO mechanical soft diet 2) Encourage optimal PO intake 3) Follow-up with cardiology, nephrology, urology, and neurology 4) Continue to monitor I&O, labs, and skin integrity Expected Outcomes/Goals: 1) appetite and labs to improve 2) f/u in 3-5 days Total Time (mins): 55 ROSAMARIA LASSITER MD May 09, 2025 15:21
[2025-05-09] MEDS: SODIUM CHLORIDE 0.9% 1,000 ML IV ONE (15:30)
[2025-05-09 15:46] LABS: Potassium 4.0 mmol/L (3.5-5.1); Sodium 141 mmol/L (136-145)
[2025-05-09 15:47] LABS: Anion Gap 10 (5-15); Carbon Dioxide 24 mmol/L (20-31)
[2025-05-09 15:48] LABS: Calcium 8.5 mg/dL (8.7-10.4); Chloride 107 mmol/L (98-107)
[2025-05-09 15:52] LABS: BUN/Creatinine Ratio 14.6 (10.0-20.0); Blood Urea Nitrogen 23 mg/dL (9-23); Glucose 109 mg/dL (74-106)
[2025-05-10] VITALS (8 sets, daily range): BP systolic 133–148; BP diastolic 69–91; PULSE 77–82; RESP 16; TEMP 97.7–99.4; O2SAT 93–96
[2025-05-10 07:19] LABS: Anion Gap 12 (5-15); Carbon Dioxide 21 mmol/L (20-31); Potassium 3.7 mmol/L (3.5-5.1); Sodium 143 mmol/L (136-145)
[2025-05-10 07:20] LABS: Calcium 8.9 mg/dL (8.7-10.4)
[2025-05-10 07:22] LABS: Chloride 110 mmol/L (98-107)
[2025-05-10 07:25] LABS: BUN/Creatinine Ratio 13.1 (10.0-20.0); Blood Urea Nitrogen 20 mg/dL (9-23); Glucose 94 mg/dL (74-106)
--- NOTE | 2025-05-10 10:07 | DVHPN2 ---
Progress Note Date Seen: May 10, 2025 Medical Necessity Reason Pt with a Central, PICC or Fol: Yes The following are medically ne: Canseco Catheter Objective vital signs Vital Sign Date Time Temp Pulse Resp B/P (MAP) Pulse Ox O2 Delivery O2 Flow Rate FiO2 05/10/25 08:55 99.4 79 16 148/69 (95) 93 99.4 05/10/25 07:45 Room Air* 0 21 Total Intake and Output 05/09/25 05/09/25 05/10/25 15:00 23:00 07:00 Intake Total 50 ml 0 ml 240 ml Output Total 1400 ml Balance 50 ml 0 ml -1160 ml medications Current Medications Medications Dose Ordered Sig/Sheng Route Start Time Stop Time Status Last Admin Dose Admin Tamsulosin HCl 0.4 mg QPM PO 05/06/25 18:00 05/09/25 17:06 0.4 MG Famotidine 20 mg Q12HR IV 05/05/25 22:00 05/09/25 21:06 20 MG Diagnostic Test (Pha) 1 strip ACHS 05/05/25 22:00 05/10/25 06:32 1 STRIP Insulin Human Regular ACHS SC 05/05/25 22:00 05/08/25 12:05 2 UNITS Dextrose 50 ml UD PRN IV 05/05/25 21:45 Sodium Chloride 10 ml Q8HR IV 05/05/25 22:00 05/10/25 06:21 10 ML Acetaminophen/ Hydrocodone Bitart 1 tab Q4HP PRN PO 05/05/25 21:45 Ondansetron HCl 4 mg Q4HP PRN IV 05/05/25 21:45 Docusate Sodium 100 mg BIDPRN PRN PO 05/05/25 21:45 Acetaminophen 650 mg Q6HP PRN PO 05/05/25 21:45 Nitroglycerin 0.4 mg Q5MINP PRN SL 05/05/25 23:45 Morphine Sulfate 2 mg Q30M PRN IV 05/05/25 23:45 Ceftriaxone Sodium 50 ml @ 100 mls/hr DAILY@09 IV 05/10/25 09:00 05/10/25 08:31 100 MLS/HR laboratory and microbiology Laboratory Tests 05/10/25 06:17 05/07/25 05:09 Test 05/10/25 06:17 Range/Units Serum Glucose 94 74-106 mg/dL Microbiology Date/Time Source Procedure Growth Status 05/07/25 09:45 Nose MRSA Screen - Final Complete 05/05/25 19:39 Blood Blood Culture - Preliminary NO GROWTH AFTER 72 HOURS OF INCUBATION. Resulted 05/05/25 06:03 Voided Urine Urine Culture - Final Proteus mirabilis Complete Problem List/Assessment/Plan Problem List/Assessment/Plan 1) Hemodynamically mediated SAM/VMN, prerenal state 2) CKD stage IIIA 3) cystitis secondary to Gram-negative rods 4) toxic metabolic encephalopathy 5) history of paraplegia rec trial of void IV hydration until DC obtain labs today ABX per primary team pending return to SNF rest of care per primary team Plan discussed with: Patient My Orders My Orders Orders - ROSAMARIA LASSITER MD Procedure Category Date Status Time D/C Harleen GARVEY 05/09/25 In Process 15:17 Dietary Evaluation Review Comments: 1) Add cardiac restriction to 60g CCHO mechanical soft diet 2) Encourage optimal PO intake 3) Follow-up with cardiology, nephrology, urology, and neurology 4) Continue to monitor I&O, labs, and skin integrity Expected Outcomes/Goals: 1) appetite and labs to improve 2) f/u in 3-5 days ROSAMARIA LASSITER MD May 10, 2025 10:07
--- NOTE | 2025-05-10 10:20 | DVHPN2 ---
Reviewed: Care Plan Changes from previous H/P or p: No Changes Eyes: No Pain, No Vision change, No Conjunctivae inflammation, No Eyelid inflammation, No Other, No Redness ENT: No Ear pain, No Ear discharge, No Nose pain, No Nose discharge, No Nose congestion, No Mouth pain, No Mouth swelling, No Throat pain, No Throat swelling, No Other Cardiovascular: No Chest Pain, No Palpitations, No Orthopnea, No Paroxysmal Noc. Dyspnea, No Edema, No Lt Headedness, No Other Respiratory: No Cough, No Dry, No Shortness of breath, No SOB with excertion, No Wheezing, No Hemoptysis, No Pleuritic Pain, No Sputum, No Other Gastrointestinal: No Nausea, No Vomiting, No Abdominal Pain, No Diarrhea, No Constipation, No Melena, No Hematochezia, No Other Genitourinary: No Dysuria, No Frequency, No Incontinence, No Hematuria, No Retention; Other (Cloudy urine) Musculoskeletal: other (Paraplegic); No neck pain, No shoulder pain, No arm pain, No back pain, No hand pain, No leg pain, No foot pain Skin: No Rash, No Lesions, No Jaundice, No Bruising, No Other Objective Vitals Vital Signs Date Time Temp Pulse Resp B/P (MAP) Pulse Ox O2 Delivery O2 Flow Rate FiO2 05/10/25 08:55 99.4 79 16 148/69 (95) 93 99.4 05/10/25 07:45 Room Air* 0 21 Intake/Output Intake and Output 05/10/25 07:00 Intake Total 290 ml Output Total 1400 ml Balance -1110 ml Intake Oral 240 ml IV Total 50 ml Output Urine Total 1400 ml # Bowel Movements 1 Medications Current Medications Medications Dose Ordered Sig/Sheng Route Start Time Stop Time Status Last Admin Dose Admin Tamsulosin HCl 0.4 mg QPM PO 05/06/25 18:00 05/09/25 17:06 0.4 MG Famotidine 20 mg Q12HR IV 05/05/25 22:00 05/09/25 21:06 20 MG Diagnostic Test (Pha) 1 strip ACHS 05/05/25 22:00 05/10/25 06:32 1 STRIP Insulin Human Regular ACHS SC 05/05/25 22:00 05/08/25 12:05 2 UNITS Dextrose 50 ml UD PRN IV 05/05/25 21:45 Sodium Chloride 10 ml Q8HR IV 05/05/25 22:00 05/10/25 06:21 10 ML Acetaminophen/ Hydrocodone Bitart 1 tab Q4HP PRN PO 05/05/25 21:45 Ondansetron HCl 4 mg Q4HP PRN IV 05/05/25 21:45 Docusate Sodium 100 mg BIDPRN PRN PO 05/05/25 21:45 Acetaminophen 650 mg Q6HP PRN PO 05/05/25 21:45 Nitroglycerin 0.4 mg Q5MINP PRN SL 05/05/25 23:45 Morphine Sulfate 2 mg Q30M PRN IV 05/05/25 23:45 Ceftriaxone Sodium 50 ml @ 100 mls/hr DAILY@09 IV 05/10/25 09:00 05/10/25 08:31 100 MLS/HR Laboratory Results Laboratory Tests 05/07/25 05:09 05/10/25 06:17 Chemistry Test 05/09/25 15:28 05/10/25 06:17 Calcium Level 8.5 mg/dL (8.7-10.4) L 8.9 mg/dL (8.7-10.4) Urinalysis Test 05/06/25 09:45 Urine Color Yellow (Yellow) Urine Clarity Turbid (Clear) H Urine pH 5.5 (5.0-9.0) Urine Specific Beltrami 1.007 (1.001-1.035) Urine Protein 1+ (Negative) H Urine Ketones Negative (Negative) Urine Blood 2+ /uL (Negative) H Urine Nitrite Negative (Negative) Urine Bilirubin Negative (Negative) Urine Urobilinogen Normal mg/dL (Negative) Urine Leukocyte Esterase 3+ /uL (Negative) Urine RBC 119 /hpf (0 - 3) Urine WBC Clumps Present /hpf (None Seen) Urine Microscopic WBC 3557 /HPF (0-3) H Urine Squamous Epithelial Cells Mod /hpf (<5) Urine Bacteria None seen /hpf (None Seen) Urine Mucus Few (None Seen) Urine Glucose Normal mg/dL (Normal) Microbiology Microbiology Date/Time Source Procedure Growth Status 05/07/25 09:45 Nose MRSA Screen - Final Complete 05/05/25 19:39 Blood Blood Culture - Preliminary NO GROWTH AFTER 72 HOURS OF INCUBATION. Resulted 05/05/25 06:03 Voided Urine Urine Culture - Final Proteus mirabilis Complete Assessment/Plan Assessment/Plan Sepsis secondary to urinary tract infection: Blood cultures negative, urine cultures growing Proteus mirabilis, Rocephin 1 g IV daily for two weeks Paraplegia Severe Dementia Diabetes Hypertension Hypercholesterolemia History of recurrent urinary tract infection GERD Time spent 58 minutes Advanced care planning time 20 minutes Patient is full code Patient came from [facility] and [facility], [place] [phone], who claims she knows the patient's since 1977 is at bedside. Patient has no family per Lou. Caregiver changed her mind and now the she wants patient to be discharged back to [facility] and care for IV antibiotics by home health Plan discussed with: Patient My Orders Orders - JASON KHAN MD Procedure Category Date Status Time * Teachers Assistant CONS 05/09/25 Transmitted Consult 10:15 Discharge DISCHARGE 05/10/25 Transmitted 10:04 * Teachers Assistant CONS 05/10/25 Verified Consult Home Health Nursing REFER 05/10/25 Verified 10:06 Date of Service: May 10, 2025 Billing Provider: JASON KHAN MD Common Visit Codes: [id number] INP/OBS CARE(HIGH) JASON KHAN MD May 10, 2025 10:20
== END 2025-05-10 20:30 | disposition home health service (06) | DRG 871 ==
LOC: EDBD 18:37 → EDUNIT# 18:37 → ER 18:37 → OVERFLOW 23:35 → TELE-CENTR 05-06 15:33
PROVIDERS: ADMIT Family Medicine; ATTEND Family Medicine
PROC: 05H933Z Insertion of Infusion Device into Right Brachial Vein, Percutaneous Approach (ICD-10-PCS; principal; 2025-05-09)
PROC: B54MZZA Ultrasonography of Right Upper Extremity Veins, Guidance (ICD-10-PCS; 2025-05-09)
DX: A41.59 Other Gram-negative sepsis (principal); G92.8 Other toxic encephalopathy; N17.0 Acute kidney failure with tubular necrosis; N30.00 Acute cystitis without hematuria; G82.20 Paraplegia, unspecified; N18.31 Chronic kidney disease, stage 3a; F03.C0 Unspecified dementia, severe, without behavioral disturbance, psychotic disturbance, mood disturbance, and anxiety; G35.D Multiple sclerosis, unspecified; E78.00 Pure hypercholesterolemia, unspecified; E11.22 Type 2 diabetes mellitus with diabetic chronic kidney disease; I12.9 Hypertensive chronic kidney disease with stage 1 through stage 4 chronic kidney disease, or unspecified chronic kidney disease; K21.9 Gastro-esophageal reflux disease without esophagitis; Z74.01 Bed confinement status; Z82.49 Family history of ischemic heart disease and other diseases of the circulatory system; Z83.3 Family history of diabetes mellitus; Z87.440 Personal history of urinary (tract) infections; Z88.0 Allergy status to penicillin; Z79.899 Other long term (current) drug therapy
CPT/HCPCS: 36415; 71045; 76775; 80048; 80053; 81001; 82962; 83605; 85025; 87040; 87081; 87086; 87088; 87186; 96361; 96374; 97110; 97163; 97530; G0378; J1815; J2405; J3490

== ENCOUNTER 2025-05-19 20:32 | Inpatient (IN) | payer MEDICARE, MEDICAID ==
[~2025-05-19] VITALS: Ht 185.4 cm; Wt 86.5 kg
[2025-05-20 05:03] VITALS: RESP 18
--- NOTE | 2025-05-20 11:28 | ED.PDOC ---
History of Present Illness HPI Comments 75-year-old male came to ER for malfunctioning/PICC line. [facility], have history of dementia, paraplegia, hypertension and diabetes. Patient currently being treated for urinary tract infection via a PICC line, with Rocephin 1 g IV for 14 days. Patient currently on his 10th day treatment, however PICC line apparently got dislodged right arm REVIEW OF SYSTEMS: Patient has dementia General: No fever, no chills, or fatigue HEENT: No sore throat, no earache, no congestion, no neck pain. Cardiac: No chest pain. No palpitations. Lungs: No shortness of breath, no cough. GI: No nausea, no vomiting, no diarrhea, no constipation, no abdominal pain : No dysuria, frequency, or urgency. No hematuria. Musculoskeletal: No joint pain , no joint swelling, no extremity edema. Skin: No rash, no itching. Neuro: No headache, no dizziness, no weakness PHYSICAL EXAM: General: Awake, alert and oriented. No acute distress. Skin: Skin in warm, dry and intact without rashes or lesions. HEENT: The head is normocephalic and atraumatic. Conjunctivae are clear without exudates or hemorrhage. Sclera is non-icteric. Neck: Normal range of motion. No JVD. Cardiac: Regular rate Respiratory: No signs of respiratory distress. No Stridor. Extremities: Right upper extremity no erythema, swelling or hemorrhage. Neurological: The patient is awake, alert and oriented to person, place, and time with normal speech. Speech is clear. There is no facial asymmetry. Psychiatric: Appropriate mood and affect. Good judgement and insight. Chief Complaint: Upper Extremity Time Seen by MD: 23:01 Primary Care Provider: pt does not know Reviewed Notes: Nurses Notes Allergies: Coded Allergies: Penicillin G (Verified Allergy, Unknown, 09/01/15) Home Meds Active Scripts Doxycycline Monohydrate (Doxycycline Monohydrate) 100 Mg Cap, 1 CAP PO BID, #28 CAP Prov:BRONSON MELGAR MD 06/09/24 Reported Medications Paroxetine Hydrochloride (Paroxetine Hydrochloride) 40 Mg Tab, 1 TAB PO DAILY for 28 Days, #28 06/07/24 Clopidogrel Bisulfate (CLOPIDOGREL) 75 Mg Tab, 1 TAB PO DAILY for 28 Days, #28 05/28/24 Pantoprazole Sodium Sesquihydr (Pantoprazole Sodium) 40 Mg Tab, 1 TAB PO QAM for 28 Days, #28 05/28/24 Docusate Sodium (Docusate Sodium) 100 Mg Cap, 1 CAP PO QAM for 28 Days, #28 05/28/24 Atorvastatin Calcium (ATORVASTATIN CALCIUM) 20 Mg Tab, 1 TAB PO DAILY for 28 Days, #28 05/28/24 Doxazosin Mesylate (Doxazosin Mesylate) 4 Mg Tab, 1 TAB PO QAM for 28 Days, #28 05/28/24 Doxazosin Mesylate (Doxazosin Mesylate) 2 Mg Tab, 1 TAB PO QPM for 28 Days, #28 05/28/24 Information Source: Patient Mode of Arrival: Wheelchair Past Medical History PAST MEDICAL HISTORY: Dementia, DM, GERD, High Lipids, HTN, UTI'S Past Medical History (Other): Paraplegic Surgical History: Denies all surgeries Family History Family History: Reviewed,noncontributory to illness Social History Smoker: Non-Smoker Alcohol: Denies ETOH Use Drugs: Denies Drug Use Lives In: Assisted Care Was a procedure done? Was a procedure done?: No Differential Dx Considerations may include: Malfunctioning PICC line, urinary tract infection, dementia X-Ray, Labs, Meds, VS Vital Signs Date Time Temp Pulse Resp B/P (MAP) Pulse Ox O2 Delivery O2 Flow Rate FiO2 05/20/25 13:00 62 13 151/78 (102) 05/20/25 11:00 62 13 156/73 (100) 05/20/25 09:00 66 20 137/81 (99) 96 05/20/25 08:00 73 05/20/25 07:49 Room Air* 0 21 05/20/25 07:49 97.6 71 14 133/75 (94) 92 97.6 05/20/25 06:30 76 14 113/62 (79) 98 05/20/25 05:03 18 Room Air* 0 21 05/20/25 04:24 72 12 130/66 (87) 97 05/20/25 01:28 97.3 66 13 155/68 (97) 96 97.3 05/19/25 20:35 97.8 65 16 138/75 94 97.8 Current Medications Medications (Trade) Dose Ordered Sig/Sheng Route Start Time Stop Time Status Last Admin Ceftriaxone Sodium 50 ml @ 100 mls/hr ONCE ONCE IV 05/19/25 23:30 05/19/25 23:59 DC 05/20/25 02:50 Patient alert. Came in because of a PICC line. Currently on antibiotics. Was given Rocephin. Was given clindamycin. On examination he does have redness in the perineum. To prevent further infection sepsis he will be admitted for antibiotics. 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 Consult (05/20/25 ) Insert Midline (05/20/25 10:45) Cardiac Diet-2gna,Lofat,Lochol (05/20/25 Dinner) Vital Signs Date Time Temp Pulse Resp B/P (MAP) Pulse Ox O2 Delivery O2 Flow Rate FiO2 05/20/25 13:00 62 13 151/78 (102) 05/20/25 11:00 62 13 156/73 (100) 05/20/25 09:00 66 20 137/81 (99) 96 05/20/25 08:00 73 05/20/25 07:49 Room Air* 0 21 05/20/25 07:49 97.6 71 14 133/75 (94) 92 97.6 05/20/25 06:30 76 14 113/62 (79) 98 05/20/25 05:03 18 Room Air* 0 21 05/20/25 04:24 72 12 130/66 (87) 97 05/20/25 01:28 97.3 66 13 155/68 (97) 96 97.3 05/19/25 20:35 97.8 65 16 138/75 94 97.8 Departure 1 Departure Time of Disposition: 06:00 Impression: Primary Impression: Cellulitis of perineum Additional Impression: Acute cystitis without hematuria Disposition: ADMITTED INPATIENT Admit to: [facility] Surg Condition: Guarded Discharged With: Self Comments 75-year-old male on 14 day course of Rocephin via PICC line for UTI. PICC line was removed. Signed out to Dr. Padron pending PICC line placement and DC back to SNF Critical Care Note Critical Care Time?: No Stability Stability form required: No Heart Score Heart Score: Heart Score Response (Comments) Value History N/A 0 EKG N/A 0 Age N/A 0 Risk Factors N/A 0 Troponin N/A 0 Total 0 I personally scribed for ZENAIDA RAMSAY MD ([email or web address]) on 05/19/25 at 23:01. Electronically submitted by Sean Marroquin ([facility]). ZENAIDA RAMSAY MD May 19, 2025 23:01 HANSA PADRON MD May 20, 2025 10:22
[2025-05-20 18:02] LABS: Hematocrit 39.8 % (41.0-53.0); Hemoglobin 12.9 g/dL (13.5-17.5); Mean Corpuscular Hemoglobin 28.5 pg (28.0-32.0); Mean Corpuscular Volume 87.7 fL (80.0-100.0); Nucleated Red Blood Cells % 0.0 %
--- NOTE | 2025-05-20 18:03 | DVH ---
CHEST RADIOGRAPH Indication: cough Technique: Single frontal view of the chest was obtained Comparison: XY CHEST PORTABLE on DOS: 05/05/25 FINDINGS: Lines and Tubes: None Lungs: No focal consolidation. Pleura: No effusion. No pneumothorax. Cardiomediastinal contours: Unremarkable Bones: No acute osseous abnormality. IMPRESSION: No acute cardiopulmonary disease.
[2025-05-20 18:19] LABS: Alanine Aminotransferase 20 U/L (7-40); Albumin 3.8 g/dL (3.2-4.8); Anion Gap 9 (5-15); BUN/Creatinine Ratio 17.3 (10.0-20.0); Bilirubin, Total 0.4 mg/dL (0.2-1.0); Calcium 9.0 mg/dL (8.7-10.4); Carbon Dioxide 25 mmol/L (20-31); Glucose 90 mg/dL (74-106); Potassium 4.0 mmol/L (3.5-5.1); Sodium 142 mmol/L (136-145); Total Protein 7.0 g/dL (5.7-8.2)
[2025-05-20] MEDS: CLINDAMYCIN 600MG IV 50 ML IV ONE (18:22)
[2025-05-20] MEDS: SODIUM CHLORIDE 0.9% 1,000 ML IV ONE (18:22)
[2025-05-20 18:39] LABS: Alkaline Phosphatase 118 U/L (46-116); Blood Urea Nitrogen 24 mg/dL (9-23); Chloride 108 mmol/L (98-107)
[2025-05-20 19:40] VITALS: RESP 21; O2SAT 96
[2025-05-20] MEDS ORDERED: ONDANSETRON HCL 4 MG/2 ML VIAL IV PRN (20:45)
[2025-05-20] MEDS: ENOXAPARIN SOD 40 MG/0.4 ML SYRINGE SC SCH (21:35)
[2025-05-20] MEDS: PANTOPRAZOLE 40 MG/10 ML VIAL INJ IV ONE (21:35)
--- NOTE | 2025-05-20 22:08 | DVH ---
BILATERAL LOWER EXTREMITY ARTERIAL DUPLEX ULTRASOUND STUDY: REASON FOR EXAM: cyanotic lower extremeties TECHNIQUE: The full lengths of the arterial segments were evaluated with color-flow Doppler ultrasoun d. Suspected abnormalities were evaluated with cruz scale ultrasound. Hand Sprayer spectral Doppler waveforms, with velocity measurements were obtained. Spectral waveforms with velocity measurements w ere obtained 2 to 4 cm central to any areas of significant stenosis. Common femoral, superficial femo ral, popliteal, posterior tibial, anterior tibial, and dorsal pedal arteries were evaluated. FINDINGS: Right: There is diffuse atherosclerotic plaque throughout the right lower extremity. The common femor al artery waveform is multiphasic with a brisk upstroke. The superficial femoral and popliteal arteri es are patent with multiphasic waveforms. The anterior tibial and dorsal pedal arteries are patent wi th multiphasic waveforms. The posterior tibial artery is obscured by overlying bandages. Left: There is diffuse atherosclerotic plaque throughout the left lower extremity. The common femora l artery waveform is multiphasic with a brisk upstroke. The superficial femoral artery is patent with multiphasic waveforms. The popliteal artery is patent with High velocity monophasic waveforms. There are High velocity monophasic waveforms in the anterior tibial, posterior tibial, and dorsal pedal ar teries. IMPRESSION: No hemodynamically significant focal stenosis or occlusion. High velocity monophasic waveforms in the left lower extremity [id number], likely due to decrease d distal capillary bed resistance which can be seen in the context of distal infection. Correlate cli nically.
[2025-05-20 23:01] VITALS: BP 159/63; PULSE 71; RESP 18; TEMP 97.4; O2SAT 94
--- NOTE | 2025-05-20 23:12 | DVHHPRES ---
History of Present Illness Resident Creating Document: DORCAS BAZAN RESIDENT History of Present Illness 75-year-old male with past medical history of multiple sclerosis, generalized weakness, dementia, CKD, osteomyelitis of the foot, BPH was brought to the emergency department from a SNF facility for change of PICC line which he pulled out. Patient is disoriented A/Ox1, believes it is 1940s and does not know the reason why he was brought to the hospital. Midline has been placed. Patient has a perineal wound that is slightly bleeding and his bilateral feet have bluish discoloration for which patient is being admitted. His vitals are stable. We are admitting him for further workup and treatment. Past medical history: As stated above Past surgical history: Unknown Family history: Unknown Social history: Unknown Allergies: Unknown code status: Full code Review of Systems ENT: No: Ear pain, Ear discharge, Nose pain, Nose discharge, Nose congestion, Mouth pain, Mouth swelling, Throat pain, Throat swelling, Other Respiratory: No: Cough, Dry, Shortness of breath, SOB with excertion, Wheezing, Hemoptysis, Pleuritic Pain, Sputum, Wheezing, Other Cardiovascular: No: Chest Pain, Palpitations, Orthopnea, Paroxysmal Noc. Dyspnea, Edema, Lt Headedness, Other Gastrointestinal: No: Nausea, Vomiting, Abdominal Pain, Diarrhea, Constipation, Melena, Hematochezia, Other Genitourinary: No Dysuria, No Frequency, No Incontinence, No Hematuria, No Retention, No Other Musculoskeletal: other (Bluish discoloration of bilateral feet); No: neck pain, shoulder pain, arm pain, back pain, hand pain, leg pain, foot pain Skin: No: Rash, Lesions, Jaundice, Bruising, Other Allergies: Coded Allergies: Penicillin G (Verified Allergy, Unknown, 09/01/15) Medications Current Medications Medications Dose Ordered Sig/Sheng Route Start Time Stop Time Status Last Admin Dose Admin Ondansetron HCl 4 mg Q4HP PRN IV 05/20/25 20:45 Enoxaparin Sodium 40 mg DAILY SC 05/20/25 20:45 05/20/25 21:35 40 MG Atorvastatin Calcium 20 mg DAILY PO 05/21/25 10:00 Clopidogrel Bisulfate 75 mg DAILY PO 05/21/25 10:00 Doxazosin Mesylate 4 mg DAILY PO 05/21/25 10:00 Pantoprazole Sodium 40 mg DAILY IV 05/21/25 10:00 Ceftriaxone Sodium 50 ml @ 100 mls/hr DAILY@09 IV 05/21/25 09:00 Clindamycin Phosphate 50 ml @ 50 mls/hr Q8H IV 05/21/25 02:00 Exam Vital Signs Vital Signs Date Time Temp Pulse Resp B/P (MAP) Pulse Ox O2 Delivery O2 Flow Rate FiO2 05/20/25 23:01 97.4 71 18 159/63 (95) 94 97.4 05/20/25 19:40 Room Air* 0 21 Exam Pt is lying on bed General Appearance: Alert, Oriented X1, Cooperative, Not in acute distress HEENT: Atraumatic, Mucous membranes moist/pink Respiratory: Clear to auscultation, Normal air movement, No added sounds Cardiovascular: Regular rate, Normal S1, Normal S2, No murmurs Abdominal: Active bowel sounds, Soft, no distention, no tenderness Extremities: No edema, Normal pulses, No tenderness/swelling, bluish discolorat ion of bilateral feet, warm on touch Skin: No Significant rash, except past surgical scars, presence of bleeding in the perineal region Neuro: Normal speech, sensorimotor deficits none Psych/Mental Status: Mental status NL, Mood NL Nurse was there as blind installer during examination Labs/Xrays Labs Test 05/20/25 17:45 Range/Units White Blood Count 8.0 4.4-10.8 10^3/uL Red Blood Count 4.54 4.5-5.90 10^6/uL Hemoglobin 12.9 L 13.5-17.5 g/dL Hematocrit 39.8 L 41.0-53.0 % Mean Corpuscular Volume 87.7 80.0-100.0 fL Mean Corpuscular Hemoglobin 28.5 28.0-32.0 pg Mean Corpuscular Hemoglobin Concent 32.5 32.0-36.0 g/dL Red Cell Distribution Width 15.7 H 11.8-14.3 % Platelet Count 273 140-450 10^3/uL Mean Platelet Volume 7.4 6.9-10.8 fL Neutrophils (%) (Auto) 72.3 37.0-80.0 % Lymphocytes (%) (Auto) 16.7 10.0-50.0 % Monocytes (%) (Auto) 6.5 0.0-12.0 % Eosinophils (%) (Auto) 3.8 0.0-7.0 % Basophils (%) (Auto) 0.7 0.0-2.0 % Neutrophils # (Auto) 5.8 1.6-8.6 10 ^3/uL Lymphocytes # (Auto) 1.3 0.4-5.4 10 ^3/uL Monocytes # (Auto) 0.5 0-1.3 10 ^3/uL Eosinophils # (Auto) 0.3 0-0.8 10 ^3/uL Basophils # (Auto) 0.1 0-0.2 10 ^3/uL Nucleated Red Blood Cells 0.0 % Erythrocyte Sedimentation Rate 30 H 0-20 mm/hr Sodium Level 142 136-145 mmol/L Potassium Level 4.0 3.5-5.1 mmol/L Chloride Level 108 H 98-107 mmol/L Carbon Dioxide Level 25 20-31 mmol/L Anion Gap 9 5-15 Blood Urea Nitrogen 24 H 9-23 mg/dL Creatinine 1.39 H 0.700-1.30 mg/dL Glomerular Filtration Rate Calc 54 >90 mL/min BUN/Creatinine Ratio 17.3 10.0-20.0 Serum Glucose 90 74-106 mg/dL Lactic Acid Level 1.3 0.4-2.0 mmol/L Calcium Level 9.0 8.7-10.4 mg/dL Total Bilirubin 0.4 0.2-1.0 mg/dL Aspartate Amino Transferase (AST) 23 13-40 U/L Alanine Aminotransferase (ALT) 20 7-40 U/L Alkaline Phosphatase 118 H 46-116 U/L Troponin I High Sensitivity 12 </=54 ng/L C-Reactive Protein High Sensitivity 1.00 <1.0 mg/dL Total Protein 7.0 5.7-8.2 g/dL Albumin 3.8 3.2-4.8 g/dL SEPSIS Sepsis Screen Date sepsis recognized/suspect: May 20, 2025 Time Sepsis recognized/suspect: 1939 Recent Procedure: No On Antibiotic Therapy: No Respiratory Rate >20: No Heart Rate >90: No Temp<36 C (96.8 F) or >38.3 C: No SBP <90 or MAP <65 mmHG: No New Acute Mental Status Change: No Is the patient on CPAP, BIPAP,: No Physician Orders Cardiac Diet-2gna,Lofat,Lochol (05/20/25 Dinner) Chest Portable (05/20/25 17:33) Urinalysis (05/20/25 17:33) Blood Culture (05/20/25 17:33) Admit (05/20/25 20:37) Code Status (05/20/25 20:37) Ondansetron Hcl (Zofran) (05/20/25 20:45) Complete Blood Count (05/21/25 04:00) Comprehensive Metabolic Panel (05/21/25 04:00) Condition: Unstable (05/20/25 20:37) Enoxaparin Sodium (Lovenox) (05/20/25 20:45) Bilat Low Ext Art Duplex (05/20/25 20:37) * Wound Consult (05/20/25 ) Atorvastatin (Lipitor) (05/21/25 10:00) Clopidogrel Bisulfate (Plavix) (05/21/25 10:00) Doxazosin Mesyl Tablet (Cardura Tablet) (05/21/25 10:00) Insert Canseco Catheter QSHIFT (05/20/25 20:37) Pantoprazole (Protonix) (05/21/25 10:00) Ceftriaxone 1gm/50ml (Rocephin) (05/21/25 09:00) Clindamycin 600mg Iv (Cleocin Iv) (05/21/25 02:00) Mrsa Screen (05/20/25 21:50) Vital Signs Date Time Temp Pulse Resp B/P (MAP) Pulse Ox O2 Delivery O2 Flow Rate FiO2 05/20/25 23:01 97.4 71 18 159/63 (95) 94 97.4 05/20/25 21:40 67 15 157/69 (98) 05/20/25 19:40 21 96 Room Air* 0 21 05/20/25 19:40 70 21 148/69 (95) 05/20/25 19:00 62 13 151/78 (102) 05/20/25 17:38 66 13 163/76 (105) 96 Laboratory Tests Test 05/20/25 17:45 Lactic Acid Level 1.3 mmol/L (0.4-2.0) White Blood Count 8.0 10^3/uL (4.4-10.8) Medications Medications Dose Ordered Sig/Sheng Route Start Time Stop Time Status Last Admin Dose Admin Clindamycin Phosphate 50 ml @ 50 mls/hr ONCE ONCE IV 05/20/25 17:45 05/20/25 18:44 DC 05/20/25 18:22 50 MLS/HR Enoxaparin Sodium 40 mg DAILY SC 05/20/25 20:45 05/20/25 21:35 40 MG Pantoprazole Sodium 40 mg ONCE ONCE IV 05/20/25 20:45 05/20/25 21:18 DC 05/20/25 21:35 40 MG Sodium Chloride 1,000 ml @ 1,000 mls/hr Q1H ONCE IV 05/20/25 17:45 05/20/25 18:44 DC 05/20/25 18:22 1,000 MLS/HR Assessment/Plan Assessment/Plan #Bleeding perineal wound due to laceration, rule out cellulitis, soft soft tissue infection -ESR 30, CRP 1.0 -wound consult -IV clindamycin 600 mg Q 8 H -IV ceftriaxone 1 g IV daily -Ondansetron 4 mg IV q.4 PRN #Rule out possible PAD -Arterial duplex shows no hemodynamically significant focal stenosis or occlusion, high velocity monophasic waveforms in the left lower extremity [id number] likely due to decreased distal capillary bed resistance which can be seen in the context of distal infection -continue home medication Plavix 75 mg p.o. daily -chest x-ray shows no cardiopulmonary disease -tropes negative #Hyperlipidemia -continue home medication atorvastatin 20 mg p.o. daily #BPH #UTI -continuing home medication Doxazosin 4 mg p.o. daily -Canseco's -UA shows urine is turbid, WBC 147, cells moderate, bacteria none seen, hyaline casts few, urine mucus -urine culture #Chronic CKD, 3a -1 L bolus was 0.9% NS IV -Monitor GI prophylaxis: Protonix 40 mg IV daily DVT prophylaxis: Lovenox 40 mg subcutaneous daily Diet: cardiac diet Goals of care discussed with the patient for more than 27 minutes: Full code status Case discussed with Dr. Woods, patient Plan discussed with: Patient My Orders Orders - DORCAS BAZAN RESIDENT Procedure Category Date Status Time Admit ADMIT 05/20/25 Transmitted 20:37 Code Status CODE 05/20/25 Transmitted 20:37 Ondansetron Hcl PHA 05/20/25 In Process (Zofran) 20:45 Complete Blood Count LAB 05/21/25 Verified 04:00 Comprehensive LAB 05/21/25 Verified Metabolic Panel 04:00 Condition: Unstable MARE 05/20/25 In Process 20:37 Enoxaparin Sodium PHA 05/20/25 In Process (Lovenox) 20:45 Bilat Low Ext Art US 05/20/25 Resulted Duplex 20:37 * Wound Consult CONS 05/20/25 Transmitted Atorvastatin (Lipitor) PHA 05/21/25 In Process 10:00 Clopidogrel Bisulfate PHA 05/21/25 In Process (Plavix) 10:00 Doxazosin Mesyl PHA 05/21/25 In Process Tablet (Cardura 10:00 Insert Canseco Catheter MARE 05/20/25 In Process 20:37 Pantoprazole PHA 05/21/25 In Process (Protonix) 10:00 Ceftriaxone 1gm/50ml PHA 05/21/25 In Process (Rocephin) 09:00 Clindamycin 600mg Iv PHA 05/21/25 In Process (Cleocin Iv) 02:00 Date of Service: May 20, 2025 Billing Provider: HAROON WOODS MD Common Visit Codes: [id number] INP/OBS CARE (HIGH) Secondary Visit Codes: [id number] CARE PLAN 30 MINUTES DORCAS BAZAN May 20, 2025 23:12
[2025-05-20 23:47] VITALS: BP 159/63; PULSE 71; RESP 18; TEMP 97.4; O2SAT 94
[2025-05-21 01:10] VITALS: BP 154/69; PULSE 66; RESP 18; TEMP 98; O2SAT 96
[2025-05-21] MEDS: CLINDAMYCIN 600MG IV 50 ML IV SCH (02:36)
[2025-05-21 03:30] LABS: Urine Protein, UAD Negative (Negative)
[2025-05-21 05:02] VITALS: BP 110/45; PULSE 76; RESP 18; TEMP 97.8; O2SAT 95
[2025-05-21 05:54] LABS: Hematocrit 36.7 % (41.0-53.0); Hemoglobin 12.4 g/dL (13.5-17.5); Mean Corpuscular Hemoglobin 29.4 pg (28.0-32.0); Mean Corpuscular Volume 87.2 fL (80.0-100.0); Nucleated Red Blood Cells % 0.1 %
[2025-05-21 06:06] LABS: Alanine Aminotransferase 15 U/L (7-40); Albumin 3.4 g/dL (3.2-4.8); Alkaline Phosphatase 109 U/L (46-116); Anion Gap 10 (5-15); BUN/Creatinine Ratio 11.3 (10.0-20.0); Blood Urea Nitrogen 17 mg/dL (9-23); Calcium 8.9 mg/dL (8.7-10.4); Carbon Dioxide 23 mmol/L (20-31); Glucose 92 mg/dL (74-106); INR 1.09 (0.9-1.15); Partial Thromboplastin Time 33.0 SEC (24.5-34.5); Potassium 4.1 mmol/L (3.5-5.1); Prothrombin Time 11.5 sec (9.3-11.8); Sodium 143 mmol/L (136-145); Total Protein 6.7 g/dL (5.7-8.2)
[2025-05-21 06:07] LABS: Bilirubin, Total 0.4 mg/dL (0.2-1.0)
[2025-05-21 06:09] LABS: Chloride 110 mmol/L (98-107)
[2025-05-21] MEDS: SODIUM CHLORIDE 0.9% 1,000 ML IV SCH (06:15)
[2025-05-21 08:32] VITALS: BP 143/66; PULSE 72; RESP 18; TEMP 97.9; O2SAT 95
[2025-05-21] MEDS: DOXAZOSIN MESYL 2 MG TAB PO SCH (11:49)
[2025-05-21] MEDS: PANTOPRAZOLE 40 MG/10 ML VIAL INJ IV SCH (11:50)
[2025-05-21] MEDS: CLOPIDOGREL BISULFATE 75 MG TAB PO SCH (11:50)
[2025-05-21] MEDS: ATORVASTATIN 20 MG TAB PO SCH (11:50)
[2025-05-21 12:39] VITALS: BP 153/82; PULSE 69; RESP 16; TEMP 97.8; O2SAT 97
[2025-05-21 16:48] VITALS: BP 124/70; PULSE 78; RESP 18; TEMP 98.9; O2SAT 96
[2025-05-21 21:00] VITALS: BP 138/61; PULSE 66; RESP 18; TEMP 97.8; O2SAT 96
[2025-05-22] VITALS (7 sets, daily range): BP systolic 140–154; BP diastolic 56–89; PULSE 66–86; RESP 1–96; TEMP 83–99; O2SAT 93–97
--- NOTE | 2025-05-22 13:00 | DVHPN2 ---
Reviewed: Care Plan, H&P, Labs, Medications, Previous Orders Changes from previous H/P or p: No Changes General: Per HPI ENT: No Ear pain, No Ear discharge, No Nose pain, No Nose discharge, No Nose congestion, No Mouth pain, No Mouth swelling, No Throat pain, No Throat swelling, No Other Cardiovascular: No Chest Pain, No Palpitations, No Orthopnea, No Paroxysmal Noc. Dyspnea, No Edema, No Lt Headedness, No Other Respiratory: No Cough, No Dry, No Shortness of breath, No SOB with excertion, No Wheezing, No Hemoptysis, No Pleuritic Pain, No Sputum, No Other Gastrointestinal: No Nausea, No Vomiting, No Abdominal Pain, No Diarrhea, No Constipation, No Melena, No Hematochezia, No Other Genitourinary: No Dysuria, No Frequency, No Incontinence, No Hematuria, No Retention, No Other Musculoskeletal: other (Bluish discoloration of bilateral feet); No neck pain, No shoulder pain, No arm pain, No back pain, No hand pain, No leg pain, No foot pain Skin: No Rash, No Lesions, No Jaundice, No Bruising, No Other Objective Vitals Vital Signs Date Time Temp Pulse Resp B/P (MAP) Pulse Ox O2 Delivery O2 Flow Rate FiO2 05/22/25 09:25 147/54 05/22/25 08:56 97.5 68 1 95 97.5 05/22/25 08:00 Room Air* 0 21 Intake/Output Intake and Output 05/22/25 07:00 Intake Total 1300 ml Output Total 850 ml Balance 450 ml Intake Oral 1150 ml IV Total 150 ml Output Urine Total 850 ml # Bowel Movements 5 General Appearance: Alert, Oriented X3, Cooperative HEENT: Atraumatic Cardiovascular: Regular rate, Normal S1, Normal S2, No murmurs Medications Current Medications Medications Dose Ordered Sig/Sheng Route Start Time Stop Time Status Last Admin Dose Admin Ondansetron HCl 4 mg Q4HP PRN IV 05/20/25 20:45 Enoxaparin Sodium 40 mg DAILY SC 05/20/25 20:45 05/22/25 09:22 40 MG Atorvastatin Calcium 20 mg DAILY PO 05/21/25 10:00 05/22/25 09:21 20 MG Clopidogrel Bisulfate 75 mg DAILY PO 05/21/25 10:00 05/22/25 09:21 75 MG Doxazosin Mesylate 4 mg DAILY PO 05/21/25 10:00 05/22/25 09:25 4 MG Pantoprazole Sodium 40 mg DAILY IV 05/21/25 10:00 05/22/25 09:22 40 MG Ceftriaxone Sodium 50 ml @ 100 mls/hr DAILY@09 IV 05/21/25 09:00 05/22/25 09:22 100 MLS/HR Clindamycin Phosphate 50 ml @ 50 mls/hr Q8H IV 05/21/25 02:00 05/22/25 10:30 50 MLS/HR Sodium Chloride 1,000 ml @ 100 mls/hr Q10H IV 05/21/25 06:15 05/22/25 02:15 100 MLS/HR Laboratory Results Laboratory Tests 05/21/25 05:27 Urinalysis Test 05/20/25 20:05 Urine Color Light-yellow (Yellow) Urine Clarity Turbid (Clear) H Urine pH 5.5 (5.0-9.0) Urine Specific [place] 1.013 (1.001-1.035) Urine Protein Negative (Negative) Urine Ketones Negative (Negative) Urine Blood 1+ /uL (Negative) H Urine Nitrite Negative (Negative) Urine Bilirubin Negative (Negative) Urine Urobilinogen Normal mg/dL (Negative) Urine Leukocyte Esterase 3+ /uL (Negative) Urine RBC 33 /hpf (0 - 3) Urine Microscopic WBC 147 /HPF (0-3) H Urine Squamous Epithelial Cells Mod /hpf (<5) Urine Bacteria None seen /hpf (None Seen) Urine Hyaline Casts Few /lpf (0 - 2) Urine Mucus Few (None Seen) Urine Glucose Normal mg/dL (Normal) Microbiology Microbiology Date/Time Source Procedure Growth Status 05/20/25 23:00 Nose MRSA Screen - Final Complete 05/20/25 20:05 Voided Urine Urine Culture - Preliminary Resulted 05/20/25 17:45 Blood Blood Culture - Preliminary NO GROWTH AFTER 24 HOURS OF INCUBATION. Resulted Labs and/or images reviewed: Labs reviewed by me, Image(s) reviewed by me Assessment/Plan Assessment/Plan 75-year-old male with past medical history of multiple sclerosis, generalized weakness, dementia, CKD, osteomyelitis of the foot, BPH was brought to the emergency department from a SNF facility for change of PICC line which he pulled out. Patient is disoriented A/Ox1, believes it is 1940s and does not know the reason why he was brought to the hospital. Midline has been placed. Patient has a perineal wound that is slightly bleeding and his bilateral feet have bluish discoloration for which patient is being admitted. His vitals are stable. We are admitting him for further workup and treatment. #Bleeding perineal wound due to laceration, rule out cellulitis, soft soft tissue infection -ESR 30, CRP 1.0 -wound consult -IV clindamycin 600 mg Q 8 H -IV ceftriaxone 1 g IV daily -Ondansetron 4 mg IV q.4 PRN #Rule out possible PAD -Arterial duplex shows no hemodynamically significant focal stenosis or occlusion, high velocity monophasic waveforms in the left lower extremity [id number] likely due to decreased distal capillary bed resistance which can be seen in the context of distal infection -continue home medication Plavix 75 mg p.o. daily -chest x-ray shows no cardiopulmonary disease -tropes negative #Hyperlipidemia -continue home medication atorvastatin 20 mg p.o. daily #BPH #UTI -continuing home medication Doxazosin 4 mg p.o. daily -Canseco's -UA shows urine is turbid, WBC 147, cells moderate, bacteria none seen, hyaline casts few, urine mucus -urine culture #Chronic CKD, 3a -1 L bolus was 0.9% NS IV -Monitor GI prophylaxis: Protonix 40 mg IV daily DVT prophylaxis: Lovenox 40 mg subcutaneous daily Diet: cardiac diet Plan discussed with: Patient My Orders Orders - YOUNG THEODORE DO Procedure Category Date Status Time Apply [facility] [facility] [place] 05/21/25 In Process 13:15 Date of Service: May 21, 2025 Billing Provider: YOUNG THEODORE DO Common Visit Codes: [id number] INP/OBS CARE(HIGH) YOUNG THEODORE DO May 22, 2025 13:00
[2025-05-22] MEDS ORDERED: LEVO500T91 PO (13:05)
--- NOTE | 2025-05-22 13:08 | DVHDS2 ---
Discharge Summary Date of Admission May 20, 2025 at 20:37 Date of Discharge: May 22, 2025 Labs/Diagnostic Data: Laboratory Results Test 05/21/25 05:27 05/20/25 20:05 05/20/25 17:45 White Blood Count 6.4 10^3/uL (4.4-10.8) Red Blood Count 4.21 10^6/uL (4.5-5.90) Hemoglobin 12.4 g/dL (13.5-17.5) Hematocrit 36.7 % (41.0-53.0) Mean Corpuscular Volume 87.2 fL (80.0-100.0) Mean Corpuscular Hemoglobin 29.4 pg (28.0-32.0) Mean Corpuscular Hemoglobin Concent 33.7 g/dL (32.0-36.0) Red Cell Distribution Width 15.6 % (11.8-14.3) Platelet Count 235 10^3/uL (140-450) Mean Platelet Volume 7.6 fL (6.9-10.8) Neutrophils (%) (Auto) 68.6 % (37.0-80.0) Lymphocytes (%) (Auto) 20.1 % (10.0-50.0) Monocytes (%) (Auto) 6.3 % (0.0-12.0) Eosinophils (%) (Auto) 4.2 % (0.0-7.0) Basophils (%) (Auto) 0.8 % (0.0-2.0) Neutrophils # (Auto) 4.4 10 ^3/uL (1.6-8.6) Lymphocytes # (Auto) 1.3 10 ^3/uL (0.4-5.4) Monocytes # (Auto) 0.4 10 ^3/uL (0-1.3) Eosinophils # (Auto) 0.3 10 ^3/uL (0-0.8) Basophils # (Auto) 0.1 10 ^3/uL (0-0.2) Nucleated Red Blood Cells 0.1 % Prothrombin Time 11.5 sec (9.3-11.8) Prothrombin Time INR 1.09 (0.9-1.15) Activated Partial Thromboplast Time 33.0 SEC (24.5-34.5) Sodium Level 143 mmol/L (136-145) Potassium Level 4.1 mmol/L (3.5-5.1) Chloride Level 110 mmol/L (98-107) Carbon Dioxide Level 23 mmol/L (20-31) Anion Gap 10 (5-15) Blood Urea Nitrogen 17 mg/dL (9-23) Creatinine 1.51 mg/dL (0.700-1.30) Glomerular Filtration Rate Calc 48 mL/min (>90) BUN/Creatinine Ratio 11.3 (10.0-20.0) Serum Glucose 92 mg/dL (74-106) Calcium Level 8.9 mg/dL (8.7-10.4) Total Bilirubin 0.4 mg/dL (0.2-1.0) Aspartate Amino Transferase (AST) 21 U/L (13-40) Alanine Aminotransferase (ALT) 15 U/L (7-40) Alkaline Phosphatase 109 U/L (46-116) Total Protein 6.7 g/dL (5.7-8.2) Albumin 3.4 g/dL (3.2-4.8) Urine Color Light-yellow (Yellow) Urine Clarity Turbid (Clear) Urine pH 5.5 (5.0-9.0) Urine Specific [place] 1.013 (1.001-1.035) Urine Protein Negative (Negative) Urine Ketones Negative (Negative) Urine Blood 1+ /uL (Negative) Urine Nitrite Negative (Negative) Urine Bilirubin Negative (Negative) Urine Urobilinogen Normal mg/dL (Negative) Urine Leukocyte Esterase 3+ /uL (Negative) Urine RBC 33 /hpf (0 - 3) Urine Microscopic WBC 147 /HPF (0-3) Urine Squamous Epithelial Cells Mod /hpf (<5) Urine Bacteria None seen /hpf (None Seen) Urine Hyaline Casts Few /lpf (0 - 2) Urine Mucus Few (None Seen) Urine Glucose Normal mg/dL (Normal) Erythrocyte Sedimentation Rate 30 mm/hr (0-20) Lactic Acid Level 1.3 mmol/L (0.4-2.0) Troponin I High Sensitivity 12 ng/L (</=54) C-Reactive Protein High Sensitivity 1.00 mg/dL (<1.0) Other Laboratory Tests 05/21/25 05:27 Brief Hx & Hospital Course: #Bleeding perineal wound due to laceration, rule out cellulitis, soft soft tissue infection -ESR 30, CRP 1.0 -wound consult -IV clindamycin 600 mg Q 8 H -IV ceftriaxone 1 g IV daily -Ondansetron 4 mg IV q.4 PRN #Rule out possible PAD -Arterial duplex shows no hemodynamically significant focal stenosis or occlusion, high velocity monophasic waveforms in the left lower extremity [id number] likely due to decreased distal capillary bed resistance which can be seen in the context of distal infection -continue home medication Plavix 75 mg p.o. daily -chest x-ray shows no cardiopulmonary disease -tropes negative #Hyperlipidemia -continue home medication atorvastatin 20 mg p.o. daily #BPH #UTI -continuing home medication Doxazosin 4 mg p.o. daily -Canseco's -UA shows urine is turbid, WBC 147, cells moderate, bacteria none seen, hyaline casts few, urine mucus -urine culture #Chronic CKD, 3a -1 L bolus was 0.9% NS IV -Monitor GI prophylaxis: Protonix 40 mg IV daily DVT prophylaxis: Lovenox 40 mg subcutaneous daily Diet: cardiac diet returned to SNF Condition at Discharge: Fair Final Diagnosis/Problems List see above Discharge Disposition: Home Discharge Instruct/Medications Diet: Cardiac 2g Na,low cholest Activity: No Restrictions, As Tolerated Scheduled Atorvastatin Calcium (Atorvastatin Calcium), 1 TAB PO HS, (Reported) Clopidogrel Bisulfate (Clopidogrel), 1 TAB PO DAILY, (Reported) Doxazosin Mesylate (Doxazosin Mesylate), 1 TAB PO QPM, (Reported) Doxazosin Mesylate (Doxazosin Mesylate), 1 TAB PO QAM, (Reported) Levofloxacin Hemihydrate (Levofloxacin), 1 TAB PO DAILY Pantoprazole Sodium Sesquihydr (Pantoprazole Sodium), 1 TAB PO QAM, (Reported) Paroxetine Hydrochloride (Paroxetine Hydrochloride), 1 TAB PO DAILY, (Reported) Discharge Statement: "Patient was advised to return to the ER or call 911 if any headaches, dizziness, shortness of breath, chest pain, abdominal pain, bleeding, fevers, or worsening of medical condition. Patient was counseled about treatment plan, medications, possible side effects, patientverbalized understanding. All questions were answered to the best of my ability. This discharge took greater then 30 minutes in planning, reviewing documentation, counseling the patient, and discussing with other team members." ASSESSMENT ASSESSMENT Assessment Date of Service: May 22, 2025 Billing Provider: YOUNG THEODORE DO Common Visit Codes: [id number] DISCH DAY >30min YOUNG THEODORE DO May 22, 2025 13:08
[2025-05-23 01:00] VITALS: BP 145/70; PULSE 75; RESP 18; TEMP 98.2; O2SAT 92
[2025-05-23 05:00] VITALS: BP 137/71; PULSE 74; RESP 18; TEMP 99.6; O2SAT 94
[2025-05-23 09:00] VITALS: BP 130/71; PULSE 82; RESP 16; TEMP 98.6; O2SAT 94
[2025-05-23 13:00] VITALS: BP 133/67; PULSE 83; RESP 18; TEMP 97.7; O2SAT 94
[2025-05-23 16:51] VITALS: BP 157/77; PULSE 64; RESP 6; TEMP 97.8; O2SAT 96
[2025-05-23 20:00] VITALS: PULSE 75; RESP 18; O2SAT 93
== END 2025-05-23 20:55 | disposition home health service (06) | DRG 605 ==
LOC: ER 20:32 → OVERFLOW 05-20 20:37 → OBSVTOIN 05-20 20:37 → CENTRAL 05-20 22:33
PROVIDERS: ADMIT Family Medicine; ATTEND Family Medicine
PROC: 05HC33Z Insertion of Infusion Device into Left Basilic Vein, Percutaneous Approach (ICD-10-PCS; principal; 2025-05-20)
PROC: B54NZZA Ultrasonography of Left Upper Extremity Veins, Guidance (ICD-10-PCS; 2025-05-20)
DX: S31.119A Laceration without foreign body of abdominal wall, unspecified quadrant without penetration into peritoneal cavity, initial encounter (principal); G82.20 Paraplegia, unspecified; L03.315 Cellulitis of perineum; N17.9 Acute kidney failure, unspecified; N30.00 Acute cystitis without hematuria; E11.22 Type 2 diabetes mellitus with diabetic chronic kidney disease; F03.90 Unspecified dementia, unspecified severity, without behavioral disturbance, psychotic disturbance, mood disturbance, and anxiety; N18.31 Chronic kidney disease, stage 3a; I12.9 Hypertensive chronic kidney disease with stage 1 through stage 4 chronic kidney disease, or unspecified chronic kidney disease; N40.0 Benign prostatic hyperplasia without lower urinary tract symptoms; E78.5 Hyperlipidemia, unspecified; K21.9 Gastro-esophageal reflux disease without esophagitis; E11.51 Type 2 diabetes mellitus with diabetic peripheral angiopathy without gangrene; X58.XXXA Exposure to other specified factors, initial encounter; G35.D Multiple sclerosis, unspecified; Z88.0 Allergy status to penicillin; Z79.899 Other long term (current) drug therapy; Y93.89 Activity, other specified; Y92.89 Other specified places as the place of occurrence of the external cause; Y99.8 Other external cause status
CPT/HCPCS: 36415; 71045; 80053; 81001; 83605; 84484; 85025; 85610; 85652; 85730; 86141; 87040; 87081; 87086; 93925; G0378; J2470; J3490